=== PATIENT | female | born 1955 | race African-American/Black ===

== ENCOUNTER 2021-08-26 21:26 | Inpatient (IN) | payer OTHER, MEDICAID ==
[~2021-08-26] VITALS: Ht 177.8 cm; Wt 106.1 kg
--- NOTE | 2021-08-26 21:28 | PHYS DOC ---
General Adult HPI: HPI: Patient is a 66 year old female who arrives via EMS, from her private residence, with report of 2 days of cough, shortness of breath, generalized malaise and fatigue. EMS reports that she was saturating 60% on room air. Placed on 4 L per nasal cannula, and her oxygen saturation improved to 94%. The patient is not vaccinated against COVID-19, she is also not received an influenza vaccine. Her is also not vaccinated, and he has some similar symptoms. She denies abdominal pain, nausea, vomiting, diarrhea. She denies urinary symptoms. She denies chest pain. She denies hemoptysis. She denies any sputum production. She does not normally require supplemental oxygen. She quit smoking several years ago, but she denies any known history of pulmonary disease. She had a previous severe stroke with residual left hemiparesis, that is unchanged. She has residual speech difficulty dysarthria which is unchanged as well. She usually goes to [facility] for her care. She denies any recent hospitalizations in the last 90 days. She denies recent travel history. Review of Systems: Review of Systems: Constitutional: Denies fever. Reports chills and malaise. Eyes: Denies change in visual acuity. [] HENT: Denies nasal congestion or sore throat. [] Respiratory: Dry cough and dyspnea reported. Cardiovascular: Denies chest pain or edema. [] GI: Denies abdominal pain, nausea, vomiting, or diarrhea. : Denies urinary symptoms. Musculoskeletal: Denies back pain or joint pain. Reports myalgias. Integument: Denies rash. [] Neurologic: Denies headache. Chronic and unchanged left hemiparesis and chronic and unchanged dysarthria from previous CVA. Psychiatric: Denies depression or anxiety. [] Heart Score: C/O Chest Pain: No Risk Factors: Risk Factors: DM, Current or recent (<one month) smoker, HTN, HLP, family history of CAD, obesity. Risk Scores: Score 0 - 3: 2.5% MACE over next 6 weeks - Discharge Home Score 4 - 6: 20.3% MACE over next 6 weeks - Admit for Clinical Observation Score 7 - 10: 72.7% MACE over next 6 weeks - Early Invasive Strategies Physical Exam: PE: Constitutional: Well developed, well nourished, she is chronically ill- appearing. She is in mild to moderate respiratory distress HENT: Normocephalic, atraumatic, mucous membranes are moist Eyes: Clear are clear, anicteric, conjunctive are clear Neck: Normal range of motion, no tenderness, supple, no stridor. Trachea is midline Cardiovascular:Heart rate regular rhythm, +2 radial pulses, +2 dorsalis pedis pulses Lungs & Thorax: Diffuse rales and rhonchi in bilateral lung jaeger, diminished breath sounds more in the right lower lung jaeger. No wheezing. Mild tachypnea noted. No retractions. No stridor. Speaks in full sentences Abdomen: Abdomen is obese, soft, nondistended, normal bowel sounds, no tenderness to palpation Skin: Warm, dry, no erythema, no rash. [] Back: No tenderness, no CVA tenderness. [] Extremities: No tenderness, no cyanosis, no clubbing, ROM intact, no limb deformity. She has bilateral, symmetric 1+ bilateral lower extremity pitting edema. Neurologic: She is awake, alert, oriented to person, place and situation. Marked dysarthria, baseline for her. No facial asymmetry. Left hemiparesis noted, this is chronic and unchanged for her. Right upper and right lower extremities move symmetrically. She localizes to pain. Psychologic: Affect is flat. She is cooperative. EKG: EKG: EKG is interpreted at 2155 Rhythm is sinus Rate is 94 bpm Louise is left artifact No STEMI Radiology/Procedures: Radiology/Procedures: IMAGING REPORT Signed PATIENT: ROSI NICHOLSON JACCOUNT: [id number] : 1955 LOCATION: ER AGE: 66 SEX: F EXAM STATUS: REG ER ORD. PHYSICIAN: AMELIA PAULINO DO REASON: dyspnea, cough, hypoxia PROCEDURE: PORTABLE CHEST 1V Exam: Chest one view INDICATION: Dyspnea, cough TECHNIQUE: Frontal view of the chest Comparisons: None FINDINGS: The cardiomediastinal silhouette and pulmonary vessels are within normal limits. Patchy bilateral airspace disease. No pleural effusion IMPRESSION: Moderate bilateral airspace disease may be infectious or inflammatory in etiology versus pulmonary edema. Electronically signed by: Raul Lubin MD (08/26/2021 11:06 PM) [facility] DICTATED and SIGNED BY: RAUL LUBIN MD DATE: 08/26/21 [id number] Course & Med Decision Making: Course & Med Decision Making Pertinent Labs and Imaging studies reviewed. (See chart for details) The patient is placed on nasal cannula oxygen, I titrated up to 6-1/2 L, she ultimately required titration up to 8 L. She is saturating above 92%. She is resting much more comfortably, reports feeling much better. She is given IV dexamethasone. She is positive for COVID-19. I have discussed the findings and plan of care with the patient, I have recommended admission to the hospital. She is comfortable with this. She continues to deny any pain or discomfort. Her dyspnea is much improved. She is accepted for admission by Dr. Piepr. Kate Disclaimer: Kate Disclaimer: This electronic medical record was generated, in whole or in part, using a voice recognition dictation system. Departure Departure Impression: Primary Impression: Respiratory failure with hypoxia Additional Impressions: COVID-19 Pneumonia due to COVID-19 virus Disposition: ADMITTED INPATIENT Admitting Physician: CLOVER (Dr. Piper) Condition: GUARDED JEFFERSON,AMELIA Pace DO Aug 26, 2021 21:28
[2021-08-26] MEDS ORDERED: DEXAMETHASONE SOD PHOS 4 MG/ML VIAL IVP ONE (22:30)
[2021-08-26 22:56] LABS: BASO % 1 % (0-3); EOS % 0 % (0-3); HEMATOCRIT 36.1 % (36.0-47.0); HEMOGLOBIN 11.6 g/dL (12.0-15.5); LYMPH # 1.5 x10^3/uL (1.0-4.8); LYMPH % 31 % (24-48); MEAN CORPUSCULAR HEMOGLOBIN 27 pg (25-35); MEAN CORPUSCULAR HGB CONC 32 g/dL (31-37); MEAN CORPUSCULAR VOLUME 83 fL (79-100); MONO # 0.5 x10^3/uL (0.0-1.1); MONO % 9 % (0-9); NEUT # 2.9 x10^3/uL (1.8-7.7); NEUT % 59 % (31-73); PLATELET COUNT 193 x10^3/uL (140-400); RED BLOOD COUNT 4.36 x10^6/uL (3.50-5.40); RED CELL DISTRIBUTION WIDTH 14.9 % (11.5-14.5); WHITE BLOOD COUNT 4.9 x10^3/uL (4.0-11.0)
--- NOTE | 2021-08-26 23:00 | EKG ---
[facility] [address] [place] [address] Test Date: 2021-08-26 Test Time: 21:48:50 Pat Name: ROSI NICHOLSON Department: Room: Gender: F Insurance Executive: : 1955 Requested By: AMELIA PAULINO Order Number: [id number] Reading MD: Alex Bustamante Measurements Intervals [place] Rate: 94 P: 42 CT: 156 QRS: -13 QRSD: 92 T: 91 QT: 368 QTc: 460 Interpretive Statements SINUS RHYTHM LEFTWARD AXIS T ABNORMALITY IN HIGH LATERAL LEADS Electronically Signed On 08-28-2021 15:03:42 [employer] by Alex Bustamante
--- NOTE | 2021-08-26 23:09 | RAD ---
Exam: Chest one view INDICATION: Dyspnea, cough TECHNIQUE: Frontal view of the chest Comparisons: None FINDINGS: The cardiomediastinal silhouette and pulmonary vessels are within normal limits. Patchy bilateral airspace disease. No pleural effusion IMPRESSION: Moderate bilateral airspace disease may be infectious or inflammatory in etiology versus pulmonary ed angie. Electronically signed by: Raul Cohn MD (08/26/2021 11:06 PM) ROSAS
[2021-08-26 23:15] LABS: CALCIUM 8.3 mg/dL (8.5-10.1); CREATININE 1.7 mg/dL (0.6-1.0); GFR 36.6
[2021-08-26 23:21] LABS: ALBUMIN 2.6 g/dL (3.4-5.0); ALBUMIN/GLOBULIN RATIO 0.5 (1.0-1.7); TOTAL BILIRUBIN 0.7 mg/dL (0.2-1.0); TOTAL PROTEIN 7.7 g/dL (6.4-8.2)
[2021-08-26 23:23] LABS: INFLUENZA A PATIENT NEGATIVE (NEGATIVE); INFLUENZA B PATIENT NEGATIVE (NEGATIVE)
[2021-08-27] MEDS ORDERED: IV NORMAL SALINE 1000ML BAG 1,000 ML IV ONE (00:30)
[2021-08-27 02:23] LABS: BASE EXCESS ABG 2 mmol/L (-3-3); HCO3 ABG 27 mmol/L (21-28); PCO2 ABG 44 mmHg (35-46); PO2 ABG 57 mmHg (65-108); SAT O2 ABG 88 % (92-99)
[2021-08-27 02:25] LABS: FIO2 ABG 46 (6.5L NC)
--- NOTE | 2021-08-27 09:06 | PDOC1 ---
History and Physical Date of Service: DOS: DATE: 08/27/21 TIME: 09:01 Chief Complaint: Chief Complain: Shortness of breath History of Present Illness: HPI: History obtained from discussion with the ED physician and chart review: 66-year-old female with a past medical history of stroke with left-sided hemiparesis, tobacco misuse and possible COPD who presents events with 2 days of cough, shortness of breath, generalized weakness and fatigue. Patient called EMS for the symptoms and she was saturating at 60% on room air and was placed on 4 L nasal cannula and improved to 94%. Patient is not vaccinated for influenza or Covid. also has similar symptoms. Denies fevers, abdominal pain, chest pain, nausea vomiting or diarrhea or dysuria or hematuria. Patient does not wear any oxygen at home. She quit smoking several years ago, but she denies any known history of pulmonary disease. She had a previous severe stroke with residual left hemiparesis, that is unchanged. She has residual speech difficulty dysarthria which is unchanged as well. She usually goes to [facility] for her care. EKG: Rhythm is sinus Rate is 94 bpm [place] is left artifact No STEMI Past Medical/Surgical History: PMH/PSH: History of stroke with left-sided hemiparesis Allergies: Allergies: Coded Allergies: No Known Drug Allergies (Unverified , 08/27/21) Family History: Family History: Reviewed with no relevant findings in the chart Social History: Social History: Former smoker Current Medications: Current Medications Current Medications Dexamethasone Sodium Phosphate (Decadron) 6 mg 1X ONCE IVP Last administered on 08/26/21at 23:17; Start 08/26/21 at 22:30; Stop 08/26/21 at 22:31; Status DC Ondansetron HCl (Zofran) 4 mg PRN Q8HRS PRN IVP NAUSEA/VOMITING 1ST CHOICE; Start 08/27/21 at 00:00; Stop 08/27/21 at 23:59 Sodium Chloride 1,000 ml @ 75 mls/hr 1X ONCE IV Last administered on 08/27/21at 02:36; Start 08/27/21 at 00:30; Stop 08/27/21 at 13:49 Acetaminophen (Tylenol) 650 mg PRN Q4HRS PRN PO MILD PAIN / TEMP > 100.3'F; Start 08/27/21 at 00:00 ROS: Review of Systems Review of System REVIEW OF SYSTEMS: GENERAL: Denies weakness SKIN: No bruising, hair changes or rashes. EYES: No blurred, double or loss of vision. NOSE AND THROAT: No history of nosebleeds, hoarseness or sore throat. HEART: No history of palpitations, chest pain or shortness of breath on exertion. LUNGS: Positive shortness of breath GASTROINTESTINAL: Denies changes in appetite, nausea, vomiting, diarrhea or constipation. GENITOURINARY: No history of frequency, urgency, hesitancy or nocturia. NEUROLOGIC: Denies history of numbness, tingling, or tremor. PSYCHIATRIC: No history of panic, anxiety or depression. ENDOCRINE: No history of heat or cold intolerance, polyuria or polydipsia. EXTREMITIES: Denies joint pain, pain on walking or stiffness. Physical Exam: Vital Signs: Vital Signs Date Time Temp Pulse Resp B/P (MAP) Pulse Ox O2 Delivery O2 Flow Rate FiO2 08/27/21 07:26 97.7 84 28 157/86 (109) 92 Nasal Cannula 9.0 97.7 Physcial Exam: General: Well developed, well nourished, no acute distress, well appearing HEENT: Pupils equally round and reactive to light, EOMI, no discharge, normal conjunctiva Neck: Supple, no nuchal rigidity, no JVD, trachea midline, no tenderness Cardiac: RRR, no murmurs, no gallops, no rubs Chest/Lungs: Diffuse rales and rhonchi in bilateral lung jaeger, diminished breath sounds more in the right lower lung jaeger. No wheezing. Mild tachypnea noted. No retractions. No stridor. Speaks in full sentences Abdomen: soft, non-distended, no guarding, no peritoneal signs, non-tender Back: No tenderness Extremities: no edema, pulses intact, non-tender,capillary refill <3 sec bilateral upper and lower extremities, Neuro: Alert and oriented x 4, no focal deficits, normal speech Labs: Labs: Laboratory Tests Test 08/26/21 22:03 08/26/21 22:43 08/27/21 02:20 White Blood Count 4.9 x10^3/uL (4.0-11.0) Red Blood Count 4.36 x10^6/uL (3.50-5.40) Hemoglobin 11.6 g/dL (12.0-15.5) Hematocrit 36.1 % (36.0-47.0) Mean Corpuscular Volume 83 fL (79-100) Mean Corpuscular Hemoglobin 27 pg (25-35) Mean Corpuscular Hemoglobin Concent 32 g/dL (31-37) Red Cell Distribution Width 14.9 % (11.5-14.5) Platelet Count 193 x10^3/uL (140-400) Neutrophils (%) (Auto) 59 % (31-73) Lymphocytes (%) (Auto) 31 % (24-48) Monocytes (%) (Auto) 9 % (0-9) Eosinophils (%) (Auto) 0 % (0-3) Basophils (%) (Auto) 1 % (0-3) Neutrophils # (Auto) 2.9 x10^3/uL (1.8-7.7) Lymphocytes # (Auto) 1.5 x10^3/uL (1.0-4.8) Monocytes # (Auto) 0.5 x10^3/uL (0.0-1.1) Eosinophils # (Auto) 0.0 x10^3/uL (0.0-0.7) Basophils # (Auto) 0.0 x10^3/uL (0.0-0.2) Sodium Level 138 mmol/L (136-145) Potassium Level 4.0 mmol/L (3.5-5.1) Chloride Level 106 mmol/L (98-107) Carbon Dioxide Level 29 mmol/L (21-32) Anion Gap 3 (6-14) Blood Urea Nitrogen 18 mg/dL (7-20) Creatinine 1.7 mg/dL (0.6-1.0) Estimated GFR (Cockcroft-Gault) 36.6 BUN/Creatinine Ratio 11 (6-20) Glucose Level 128 mg/dL (70-99) Lactic Acid Level 1.3 mmol/L (0.4-2.0) Calcium Level 8.3 mg/dL (8.5-10.1) Magnesium Level 2.0 mg/dL (1.8-2.4) Total Bilirubin 0.7 mg/dL (0.2-1.0) Aspartate Amino Transf (AST/SGOT) 46 U/L (15-37) Alanine Aminotransferase (ALT/SGPT) 30 U/L (14-59) Alkaline Phosphatase 103 U/L (46-116) Creatine Kinase 685 U/L (26-192) Troponin I High Sensitivity 139 ng/L (4-50) SY-Gza-Y-Type Natriuretic Peptide 766 pg/mL (0-124) Total Protein 7.7 g/dL (6.4-8.2) Albumin 2.6 g/dL (3.4-5.0) Albumin/Globulin Ratio 0.5 (1.0-1.7) Influenza Type A Antigen Negative (NEGATIVE) Influenza Type B Antigen Negative (NEGATIVE) SARS-CoV-2 Antigen (Rapid) Positive (NEGATIVE) O2 Saturation 88 % (92-99) Arterial Blood pH 7.40 (7.35-7.45) Arterial Blood pCO2 at Patient Temp 44 mmHg (35-46) Arterial Blood pO2 at Patient Temp 57 mmHg (65-108) Arterial Blood HCO3 27 mmol/L (21-28) Arterial Blood Base Excess 2 mmol/L (-3-3) FiO2 46 (6.5l nc) Laboratory Tests Test 08/26/21 22:03 08/26/21 22:43 08/27/21 02:20 White Blood Count 4.9 x10^3/uL (4.0-11.0) Red Blood Count 4.36 x10^6/uL (3.50-5.40) Hemoglobin 11.6 g/dL (12.0-15.5) Hematocrit 36.1 % (36.0-47.0) Mean Corpuscular Volume 83 fL (79-100) Mean Corpuscular Hemoglobin 27 pg (25-35) Mean Corpuscular Hemoglobin Concent 32 g/dL (31-37) Red Cell Distribution Width 14.9 % (11.5-14.5) Platelet Count 193 x10^3/uL (140-400) Neutrophils (%) (Auto) 59 % (31-73) Lymphocytes (%) (Auto) 31 % (24-48) Monocytes (%) (Auto) 9 % (0-9) Eosinophils (%) (Auto) 0 % (0-3) Basophils (%) (Auto) 1 % (0-3) Neutrophils # (Auto) 2.9 x10^3/uL (1.8-7.7) Lymphocytes # (Auto) 1.5 x10^3/uL (1.0-4.8) Monocytes # (Auto) 0.5 x10^3/uL (0.0-1.1) Eosinophils # (Auto) 0.0 x10^3/uL (0.0-0.7) Basophils # (Auto) 0.0 x10^3/uL (0.0-0.2) Sodium Level 138 mmol/L (136-145) Potassium Level 4.0 mmol/L (3.5-5.1) Chloride Level 106 mmol/L (98-107) Carbon Dioxide Level 29 mmol/L (21-32) Anion Gap 3 (6-14) Blood Urea Nitrogen 18 mg/dL (7-20) Creatinine 1.7 mg/dL (0.6-1.0) Estimated GFR (Cockcroft-Gault) 36.6 BUN/Creatinine Ratio 11 (6-20) Glucose Level 128 mg/dL (70-99) Lactic Acid Level 1.3 mmol/L (0.4-2.0) Calcium Level 8.3 mg/dL (8.5-10.1) Magnesium Level 2.0 mg/dL (1.8-2.4) Total Bilirubin 0.7 mg/dL (0.2-1.0) Aspartate Amino Transf (AST/SGOT) 46 U/L (15-37) Alanine Aminotransferase (ALT/SGPT) 30 U/L (14-59) Alkaline Phosphatase 103 U/L (46-116) Creatine Kinase 685 U/L (26-192) Troponin I High Sensitivity 139 ng/L (4-50) NE-Dtq-W-Type Natriuretic Peptide 766 pg/mL (0-124) Total Protein 7.7 g/dL (6.4-8.2) Albumin 2.6 g/dL (3.4-5.0) Albumin/Globulin Ratio 0.5 (1.0-1.7) Influenza Type A Antigen Negative (NEGATIVE) Influenza Type B Antigen Negative (NEGATIVE) SARS-CoV-2 Antigen (Rapid) Positive (NEGATIVE) O2 Saturation 88 % (92-99) Arterial Blood pH 7.40 (7.35-7.45) Arterial Blood pCO2 at Patient Temp 44 mmHg (35-46) Arterial Blood pO2 at Patient Temp 57 mmHg (65-108) Arterial Blood HCO3 27 mmol/L (21-28) Arterial Blood Base Excess 2 mmol/L (-3-3) FiO2 46 (6.5l nc) Images: Images PROCEDURE: PORTABLE CHEST 1V Exam: Chest one view INDICATION: Dyspnea, cough TECHNIQUE: Frontal view of the chest Comparisons: None FINDINGS: The cardiomediastinal silhouette and pulmonary vessels are within normal limits. Patchy bilateral airspace disease. No pleural effusion IMPRESSION: Moderate bilateral airspace disease may be infectious or inflammatory in etiology versus pulmonary edema. Assessment/Plan Assessment/Plan Acute hypoxic respiratory failure secondary to COVID-19 pneumonia VIDAL due to vasomotor nephropathy Mildly elevated troponin level suggestive of type II demand ischemia Morbid obesity History of stroke Admit to hospitalist service for further management Admit to medicine for further management Pulmonology consult Continue IV thiamine and vitamin C IV dexamethasone daily IV Remdesivir if patient requires O2 supplementation beyond there baseline Pending CRP, D-dimer labs Titrate O2 supplementation to maintain O2 saturation greater than 92% Empiric IV antibiotics if patient has clinical presentation for bacterial pneumonia Lovenox for DVT prophylaxis Protonix while on steroids GI prophylaxis Cardiac diet DNR code Discussed with RN and SW Disposition inpatient management as above Surrogate decision maker is the In addition to my E/M visit, advance care planning done with A total time of 20 minutes was spent from 8:00 to 820 face to face in discussion regarding the patient's goals of care, CODE STATUS. Patient wishes to be DNR Justifications for Admission Other Justification MONICA MINOR MD Aug 27, 2021 09:06
[2021-08-27] MEDS ORDERED: ATOR40TA59 PO (09:11)
[2021-08-27] MEDS ORDERED: GABA300C18 PO (09:11)
[2021-08-27] MEDS ORDERED: TIZA-75 PO (09:11)
[2021-08-27] MEDS ORDERED: TRIA80OI TP (09:11)
[2021-08-27] MEDS ORDERED: NAPR-585 PO (09:11)
[2021-08-27] MEDS ORDERED: OXYB-36 PO (09:11)
[2021-08-27] MEDS ORDERED: ERGO500089 PO (09:11)
[2021-08-27] MEDS ORDERED: DOCUSATE SODIUM 100 MG CAPSULE. PO PRN (09:15)
[2021-08-27] MEDS ORDERED: diphenhydrAMINE HCL 25 MG CAPSULE PO PRN ×2 (09:15)
[2021-08-27] MEDS ORDERED: PROCHLORPERAZINE 10 MG/2 ML VIAL. IV PRN (09:15)
[2021-08-27] MEDS ORDERED: SENNOSIDES 8.6 MG TABLET PO PRN (09:15)
[2021-08-27] MEDS ORDERED: ONDANSETRON PF 4 MG/2 ML VIAL. IVP PRN ×2 (09:15)
[2021-08-27] MEDS ORDERED: ACETAMINOPHEN 325 MG TABLET. PO PRN ×2 (09:15)
[2021-08-27] MEDS ORDERED: DEXTROSE 50% 25 GM / 50ML DISP.SYRIN. IV PRN (09:15)
[2021-08-27] MEDS ORDERED: ZOLPIDEM 5 MG TABLET. PO PRN (09:15)
--- NOTE | 2021-08-27 10:41 | CONS ---
DATE OF CONSULTATION: 08/27/2021 PULMONARY CONSULTATION ATTENDING PHYSICIAN: Akua Piper DO REASON FOR CONSULTATION: Respiratory failure, COVID-19 pneumonia. HISTORY OF PRESENT ILLNESS: The patient is 66 years old who has past medical history of stroke with residual left-sided hemiparesis. The patient also has a history of tobaccoism, but quit several years ago. She was brought into the hospital with increasing cough, dyspnea, malaise and fatigue. She was noted to be hypoxic. She was placed on nasal cannula at 4 liters. The patient is COVID positive. She is not vaccinated for COVID. Her chest x-ray revealed diffuse bilateral infiltrates. No significant pleural effusion seen. I saw the patient in the Emergency Room. She is able to answer questions. She does not want to be intubated. The patient received dexamethasone. She is also on Lovenox for DVT prophylaxis. Consultation requested for further evaluation and management. She denies any nausea, vomiting. No diarrhea, no dysuria. She has some dysarthria. She has residual left-sided hemiparesis. PAST MEDICAL HISTORY: History of stroke with left-sided hemiparesis, history of tobaccoism, possible underlying COPD. ALLERGIES: None. SURGERIES: No recent surgeries. MEDICATIONS: Reviewed as given in the ER. REVIEW OF SYSTEMS: A 10-point system obtained. Pertinent positives discussed in my present illness, otherwise noncontributory. All systems that were negative were reviewed as well. SOCIAL HISTORY: Quit tobacco 2 years ago. FAMILY HISTORY: Noncontributory to lungs. PHYSICAL EXAMINATION: VITAL SIGNS: Reviewed. Afebrile, pulse ox 92% on 9 liters. GENERAL: Visual exam done due to COVID-19 pandemic. No paradoxical breathing. No obvious respiratory distress. She is obese. No skin rash. LABORATORY DATA: Reviewed. White cell count 4.9, hemoglobin 11.6 and platelets are 193. BUN 18, creatinine 1.7. CK 685. Troponin 139. ABGs with a pH of 7.40, pCO2 of 44 and a pO2 of 57 on 6.5 liters. IMPRESSION: 1. Acute hypoxic respiratory failure secondary to COVID-19 pneumonia/acute lung injury and early ARDS. 2. Abnormal chest x-ray consistent with viral pneumonia. 3. 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 4. History of tobaccoism. Quit 2 years ago. 5. Acute kidney injury versus chronic kidney disease. 6. Increased CPK and troponin level. 7. History of stroke with left-sided hemiparesis RECOMMENDATIONS: 1. Discussed with ER nurse and the patient. She wants to be a partial code. She does not want to be intubated. 2. We will continue present oxygen. We will change to high flow cannula. 3. Continue dexamethasone for a total of 10 days. 4. Lovenox for DVT prophylaxis. 5. PPI. 6. Discussed with ER physician. Chart reviewed, imaging studies reviewed. The patient will be a DNR. 7. Tocilizumab is not available in the hospital. d/w RN/cct 35 min RADHA/POLA DR: RADHA/phillip TID: [id number] MTDD
[2021-08-27] MEDS: DEXAMETHASONE SOD PHOS 4 MG/ML VIAL IVP SCH (10:52)
[2021-08-27] MEDS: PANTOPRAZOLE 40 MG TABLET.DR. PO SCH (10:57)
[2021-08-27] MEDS: ZINC SULFATE 220 MG CAPSULE. PO SCH (10:59)
[2021-08-27] MEDS: ENOXAPARIN 40 MG/0.4 ML SYRINGE. SQ SCH (10:59)
[2021-08-27] MEDS: ASCORBIC ACID 1,000 MG TABLET PO SCH ×3 (11:01→21:36)
[2021-08-27] MEDS: THIAMINE 100 MG TABLET. PO SCH (11:05)
[2021-08-27 14:43] VITALS: BP 191/92
[2021-08-27] MEDS: NYSTATIN TOPICAL POWDER 15GM BOTTLE. TP SCH (17:10)
[2021-08-27] MEDS: hydrALAZINE 20 MG/ML VIAL. IVP PRN ×2 (17:10→20:50)
[2021-08-27 19:59] VITALS: BP 182/79
[2021-08-27 22:00] VITALS: BP 174/76
[2021-08-28 03:18] VITALS: BP 157/72
[2021-08-28 06:06] LABS: BASO % 0 % (0-3); EOS % 0 % (0-3); HEMATOCRIT 34.6 % (36.0-47.0); HEMOGLOBIN 11.2 g/dL (12.0-15.5); LYMPH # 0.9 x10^3/uL (1.0-4.8); LYMPH % 11 % (24-48); MEAN CORPUSCULAR HEMOGLOBIN 27 pg (25-35); MEAN CORPUSCULAR HGB CONC 32 g/dL (31-37); MEAN CORPUSCULAR VOLUME 82 fL (79-100); MONO # 0.7 x10^3/uL (0.0-1.1); MONO % 9 % (0-9); NEUT # 6.3 x10^3/uL (1.8-7.7); NEUT % 80 % (31-73); PLATELET COUNT 215 x10^3/uL (140-400); RED BLOOD COUNT 4.21 x10^6/uL (3.50-5.40); RED CELL DISTRIBUTION WIDTH 14.8 % (11.5-14.5)
[2021-08-28 06:43] LABS: CALCIUM 7.8 mg/dL (8.5-10.1); CREATININE 1.2 mg/dL (0.6-1.0); GFR 54.7; MAGNESIUM 2.2 mg/dL (1.8-2.4); PHOSPHORUS 2.3 mg/dL (2.6-4.7); POTASSIUM 4.3 mmol/L (3.5-5.1)
[2021-08-28 07:00] VITALS: BP 137/88
[2021-08-28] MEDS: PANTOPRAZOLE 40 MG TABLET.DR. PO SCH (08:18)
[2021-08-28] MEDS: ZINC SULFATE 220 MG CAPSULE. PO SCH (08:19)
[2021-08-28] MEDS: THIAMINE 100 MG TABLET. PO SCH (08:19)
[2021-08-28] MEDS: DEXAMETHASONE SOD PHOS 4 MG/ML VIAL IVP SCH (08:19)
[2021-08-28] MEDS: ASCORBIC ACID 1,000 MG TABLET PO SCH ×3 (08:20→20:52)
[2021-08-28] MEDS: NYSTATIN TOPICAL POWDER 15GM BOTTLE. TP SCH ×2 (08:20→20:58)
[2021-08-28] MEDS: ENOXAPARIN 40 MG/0.4 ML SYRINGE. SQ SCH ×2 (08:20→20:55)
[2021-08-28] MEDS ORDERED: SODIUM PHOSPHATE 20 MMOL in IV NORMAL SALINE 250ML 250 ML IV ONE (09:00)
--- NOTE | 2021-08-28 10:44 | NUR ---
SS following for discharge planning. SS reviewed pt chart and discussed with pt RN. Pt is from home with spouse and is currently on 15 liters non-rebreather. COVID19 positive. Pt on IV Decadron. Pulmonology consulted. SS will continue to follow for discharge planning.
[2021-08-28 11:00] VITALS: BP 189/84
--- NOTE | 2021-08-28 11:13 | PDOC ---
PULMONARY PROGRESS NOTES DATE: 08/28/21 TIME: 11:11 Subjective Patient on a nonrebreather mask. Appears comfortable. Vitals Vital Signs Date Time Temp Pulse Resp B/P (MAP) Pulse Ox O2 Delivery O2 Flow Rate FiO2 08/28/21 08:00 Non-Rebreather 15.0 08/28/21 07:00 98.3 95 22 137/88 (104) 94 98.3 Comments Visual exam done due to COVID-19 bandemia. No paradoxical breathing. No respiratory distress. Trace pitting edema Labs Laboratory Tests Test 08/26/21 22:03 08/26/21 22:43 08/27/21 02:20 08/27/21 09:25 White Blood Count 4.9 x10^3/uL (4.0-11.0) Red Blood Count 4.36 x10^6/uL (3.50-5.40) Hemoglobin 11.6 g/dL (12.0-15.5) Hematocrit 36.1 % (36.0-47.0) Mean Corpuscular Volume 83 fL (79-100) Mean Corpuscular Hemoglobin 27 pg (25-35) Mean Corpuscular Hemoglobin Concent 32 g/dL (31-37) Red Cell Distribution Width 14.9 % (11.5-14.5) Platelet Count 193 x10^3/uL (140-400) Neutrophils (%) (Auto) 59 % (31-73) Lymphocytes (%) (Auto) 31 % (24-48) Monocytes (%) (Auto) 9 % (0-9) Eosinophils (%) (Auto) 0 % (0-3) Basophils (%) (Auto) 1 % (0-3) Neutrophils # (Auto) 2.9 x10^3/uL (1.8-7.7) Lymphocytes # (Auto) 1.5 x10^3/uL (1.0-4.8) Monocytes # (Auto) 0.5 x10^3/uL (0.0-1.1) Eosinophils # (Auto) 0.0 x10^3/uL (0.0-0.7) Basophils # (Auto) 0.0 x10^3/uL (0.0-0.2) Sodium Level 138 mmol/L (136-145) Potassium Level 4.0 mmol/L (3.5-5.1) Chloride Level 106 mmol/L (98-107) Carbon Dioxide Level 29 mmol/L (21-32) Anion Gap 3 (6-14) Blood Urea Nitrogen 18 mg/dL (7-20) Creatinine 1.7 mg/dL (0.6-1.0) Estimated GFR (Cockcroft-Gault) 36.6 BUN/Creatinine Ratio 11 (6-20) Glucose Level 128 mg/dL (70-99) Lactic Acid Level 1.3 mmol/L (0.4-2.0) Calcium Level 8.3 mg/dL (8.5-10.1) Magnesium Level 2.0 mg/dL (1.8-2.4) Total Bilirubin 0.7 mg/dL (0.2-1.0) Aspartate Amino Transf (AST/SGOT) 46 U/L (15-37) Alanine Aminotransferase (ALT/SGPT) 30 U/L (14-59) Alkaline Phosphatase 103 U/L (46-116) Creatine Kinase 685 U/L (26-192) Troponin I High Sensitivity 139 ng/L (4-50) ZA-Xtq-F-Type Natriuretic Peptide 766 pg/mL (0-124) Total Protein 7.7 g/dL (6.4-8.2) Albumin 2.6 g/dL (3.4-5.0) Albumin/Globulin Ratio 0.5 (1.0-1.7) Influenza Type A Antigen Negative (NEGATIVE) Influenza Type B Antigen Negative (NEGATIVE) SARS-CoV-2 Antigen (Rapid) Positive (NEGATIVE) O2 Saturation 88 % (92-99) Arterial Blood pH 7.40 (7.35-7.45) Arterial Blood pCO2 at Patient Temp 44 mmHg (35-46) Arterial Blood pO2 at Patient Temp 57 mmHg (65-108) Arterial Blood HCO3 27 mmol/L (21-28) Arterial Blood Base Excess 2 mmol/L (-3-3) FiO2 46 (6.5l nc) D-Dimer (Clari) 1.77 ug/mlFEU (0.00-0.50) C-Reactive Protein, Quantitative 160.9 mg/L (0-3.3) Procalcitonin 0.10 ng/mL (0.00-0.10) Test 08/28/21 05:20 White Blood Count 8.0 x10^3/uL (4.0-11.0) Red Blood Count 4.21 x10^6/uL (3.50-5.40) Hemoglobin 11.2 g/dL (12.0-15.5) Hematocrit 34.6 % (36.0-47.0) Mean Corpuscular Volume 82 fL (79-100) Mean Corpuscular Hemoglobin 27 pg (25-35) Mean Corpuscular Hemoglobin Concent 32 g/dL (31-37) Red Cell Distribution Width 14.8 % (11.5-14.5) Platelet Count 215 x10^3/uL (140-400) Neutrophils (%) (Auto) 80 % (31-73) Lymphocytes (%) (Auto) 11 % (24-48) Monocytes (%) (Auto) 9 % (0-9) Eosinophils (%) (Auto) 0 % (0-3) Basophils (%) (Auto) 0 % (0-3) Neutrophils # (Auto) 6.3 x10^3/uL (1.8-7.7) Lymphocytes # (Auto) 0.9 x10^3/uL (1.0-4.8) Monocytes # (Auto) 0.7 x10^3/uL (0.0-1.1) Eosinophils # (Auto) 0.0 x10^3/uL (0.0-0.7) Basophils # (Auto) 0.0 x10^3/uL (0.0-0.2) Sodium Level 141 mmol/L (136-145) Potassium Level 4.3 mmol/L (3.5-5.1) Chloride Level 107 mmol/L (98-107) Carbon Dioxide Level 27 mmol/L (21-32) Anion Gap 7 (6-14) Blood Urea Nitrogen 20 mg/dL (7-20) Creatinine 1.2 mg/dL (0.6-1.0) Estimated GFR (Cockcroft-Gault) 54.7 Glucose Level 165 mg/dL (70-99) Calcium Level 7.8 mg/dL (8.5-10.1) Phosphorus Level 2.3 mg/dL (2.6-4.7) Magnesium Level 2.2 mg/dL (1.8-2.4) Laboratory Tests Test 08/28/21 05:20 White Blood Count 8.0 x10^3/uL (4.0-11.0) Red Blood Count 4.21 x10^6/uL (3.50-5.40) Hemoglobin 11.2 g/dL (12.0-15.5) Hematocrit 34.6 % (36.0-47.0) Mean Corpuscular Volume 82 fL (79-100) Mean Corpuscular Hemoglobin 27 pg (25-35) Mean Corpuscular Hemoglobin Concent 32 g/dL (31-37) Red Cell Distribution Width 14.8 % (11.5-14.5) Platelet Count 215 x10^3/uL (140-400) Neutrophils (%) (Auto) 80 % (31-73) Lymphocytes (%) (Auto) 11 % (24-48) Monocytes (%) (Auto) 9 % (0-9) Eosinophils (%) (Auto) 0 % (0-3) Basophils (%) (Auto) 0 % (0-3) Neutrophils # (Auto) 6.3 x10^3/uL (1.8-7.7) Lymphocytes # (Auto) 0.9 x10^3/uL (1.0-4.8) Monocytes # (Auto) 0.7 x10^3/uL (0.0-1.1) Eosinophils # (Auto) 0.0 x10^3/uL (0.0-0.7) Basophils # (Auto) 0.0 x10^3/uL (0.0-0.2) Sodium Level 141 mmol/L (136-145) Potassium Level 4.3 mmol/L (3.5-5.1) Chloride Level 107 mmol/L (98-107) Carbon Dioxide Level 27 mmol/L (21-32) Anion Gap 7 (6-14) Blood Urea Nitrogen 20 mg/dL (7-20) Creatinine 1.2 mg/dL (0.6-1.0) Estimated GFR (Cockcroft-Gault) 54.7 Glucose Level 165 mg/dL (70-99) Calcium Level 7.8 mg/dL (8.5-10.1) Phosphorus Level 2.3 mg/dL (2.6-4.7) Magnesium Level 2.2 mg/dL (1.8-2.4) Medications Active Scripts Medications Dose Route/Sig Max Daily Dose Days Date Category Vitamin D2 (Ergocalciferol (Vitamin D2)) 1,250 Mcg Capsule 1,250 Mcg PO WEEKLY 08/27/21 Reported Naproxen Cr (Naproxen Sodium) 500 Mg Tbmp.24hr 1 Tab PO BID PRN 30 08/27/21 Reported Gabapentin (Gabapentin) 300 Mg Capsule 300 Mg PO TID 08/27/21 Reported Triamcinolone Acetonide 80 Gm Oint...g. 1 Betty TP BID 08/27/21 Reported Atorvastatin Calcium 40 Mg Tablet 1 Tab PO DAILY 08/27/21 Reported Tizanidine Hcl 4 Mg Tablet 1 Tab PO BID 08/27/21 Reported Oxybutynin Chloride Er (Oxybutynin Chloride) 5 Mg Tab.er.24 1 Tab PO DAILY 08/27/21 Reported Impression . 1. Acute hypoxic respiratory failure secondary to COVID-19 pneumonia/acute lung injury and early ARDS. 2. Abnormal chest x-ray consistent with viral pneumonia. 3. 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 4. History of tobaccoism. Quit 2 years ago. 5. Acute kidney injury versus chronic kidney disease. 6. Increased CPK and troponin level. Plan . 1. Continue with present nonrebreather mask. 2. Monitor respiratory status closely. May add Vapotherm. 3. Continue dexamethasone for a total of 10 days. 4. Lovenox for DVT prophylaxis. 5. PPI. 6. Per patient request, patient not to be intubated. 7. Tocilizumab is not available in the hospital. Patient too late for remdesivir. ADIEL CHAIREZ MD Aug 28, 2021 11:13
[2021-08-28] MEDS: hydrALAZINE 20 MG/ML VIAL. IVP PRN (12:08)
--- NOTE | 2021-08-28 14:03 | PDOC ---
[employer] PROGRESS NOTE Date of Service DOS: DATE: 08/28/21 TIME: 14:02 Chief Complaint Chief Complaint Assessment/Plan Acute hypoxic respiratory failure secondary to COVID-19 pneumonia VIDAL due to vasomotor nephropathy Mildly elevated troponin level suggestive of type II demand ischemia Morbid obesity History of stroke Admit to hospitalist service for further management Admit to medicine for further management Pulmonology consult Continue IV thiamine and vitamin C IV dexamethasone daily IV Remdesivir if patient requires O2 supplementation beyond there baseline Pending CRP, D-dimer labs Titrate O2 supplementation to maintain O2 saturation greater than 92% Empiric IV antibiotics if patient has clinical presentation for bacterial pneumonia Lovenox for DVT prophylaxis Protonix while on steroids GI prophylaxis Cardiac diet DNR code Discussed with RN and SW Disposition inpatient management as above Surrogate decision maker is the History of Present Illness History of Present Illness 66-year-old female with a past medical history of stroke with left-sided hemiparesis, tobacco misuse and possible COPD who presents events with 2 days of cough, shortness of breath, generalized weakness and fatigue. Patient called EMS for the symptoms and she was saturating at 60% on room air and was placed on 4 L nasal cannula and improved to 94%. Patient is not vaccinated for influenza or Covid. also has similar symptoms. Denies fevers, abdominal pain, chest pain, nausea vomiting or diarrhea or dysuria or hematuria. Patient does not wear any oxygen at home. She quit smoking several years ago, but she denies any known history of pulmonary disease. She had a previous severe stroke with residual left hemiparesis, that is unchanged. She has residual speech difficulty dysarthria which is unchanged as well. She usually goes to [facility] for her care. 08/28/2021 No acute events overnight. Patient seen and examined bedside. Patient appears comfortable on nonrebreathing mask and saturating 94% on 15 L. Continue with IV steroids and monitor closely. Appreciate pulmonology recommendations to continue with current care. And the patient request not to be intubated still. Patient's chart, labs, images were reviewed and discussed with RN Vitals/I&O Vitals/I&O: Vital Signs Date Time Temp Pulse Resp B/P (MAP) Pulse Ox O2 Delivery O2 Flow Rate FiO2 08/28/21 12:08 86 189/84 08/28/21 11:00 97.3 20 94 NonRebreather Mask 15.0 97.3 I & O 08/27/21 08/27/21 08/28/21 15:00 23:00 07:00 Intake Total 1000 ml 0 ml Output Total 400 ml Balance 1000 ml -400 ml Physical Exam General: Alert, Oriented X3, Cooperative Heart: Regular rate Lungs: Clear Abdomen: Normal bowel sounds Extremities: No clubbing Skin: No rashes Labs Labs: Laboratory Tests Test 08/28/21 05:20 White Blood Count 8.0 x10^3/uL (4.0-11.0) Red Blood Count 4.21 x10^6/uL (3.50-5.40) Hemoglobin 11.2 g/dL (12.0-15.5) Hematocrit 34.6 % (36.0-47.0) Mean Corpuscular Volume 82 fL (79-100) Mean Corpuscular Hemoglobin 27 pg (25-35) Mean Corpuscular Hemoglobin Concent 32 g/dL (31-37) Red Cell Distribution Width 14.8 % (11.5-14.5) Platelet Count 215 x10^3/uL (140-400) Neutrophils (%) (Auto) 80 % (31-73) Lymphocytes (%) (Auto) 11 % (24-48) Monocytes (%) (Auto) 9 % (0-9) Eosinophils (%) (Auto) 0 % (0-3) Basophils (%) (Auto) 0 % (0-3) Neutrophils # (Auto) 6.3 x10^3/uL (1.8-7.7) Lymphocytes # (Auto) 0.9 x10^3/uL (1.0-4.8) Monocytes # (Auto) 0.7 x10^3/uL (0.0-1.1) Eosinophils # (Auto) 0.0 x10^3/uL (0.0-0.7) Basophils # (Auto) 0.0 x10^3/uL (0.0-0.2) Sodium Level 141 mmol/L (136-145) Potassium Level 4.3 mmol/L (3.5-5.1) Chloride Level 107 mmol/L (98-107) Carbon Dioxide Level 27 mmol/L (21-32) Anion Gap 7 (6-14) Blood Urea Nitrogen 20 mg/dL (7-20) Creatinine 1.2 mg/dL (0.6-1.0) Estimated GFR (Cockcroft-Gault) 54.7 Glucose Level 165 mg/dL (70-99) Calcium Level 7.8 mg/dL (8.5-10.1) Phosphorus Level 2.3 mg/dL (2.6-4.7) Magnesium Level 2.2 mg/dL (1.8-2.4) Assessment and Plan Assessmemt and Plan Problems Medical Problems: (1) COVID-19 Status: Acute (2) Pneumonia due to COVID-19 virus Status: Acute (3) Respiratory failure with hypoxia Status: Acute Comment Review of Relevant I have reviewed the following items allyn (where applicable) has been applied. Medications: Current Medications Medications (Trade) Dose Ordered Sig/Alex Route PRN Reason Start Time Stop Time Status Last Admin Dose Admin Hydralazine HCl (Apresoline Inj) 10 mg PRN Q4HRS PRN IVP ELEVATED BP, SEE COMMENTS 08/27/21 16:45 08/28/21 12:08 Nystatin (Nystop) 1 betsy BID TP 08/27/21 21:00 08/28/21 08:20 Sodium Phosphate 20 mmol/Sodium Chloride 256.6667 ml @ 64.167 m... 1X ONCE IV 08/28/21 09:00 08/28/21 12:59 DC 08/28/21 09:52 Justifications for Admission Other Justification COVID-19 positive test (U07.1, COVID-19) with Acute Pneumonia (J12.89, Other viral pneumonia) (If respiratory failure or sepsis present, add as separate assessment) MONICA MINOR MD Aug 28, 2021 14:03
[2021-08-28 14:56] VITALS: BP 180/76
[2021-08-28 19:06] VITALS: BP 183/84
[2021-08-28 22:55] VITALS: BP 161/81
--- NOTE | 2021-08-28 23:08 | NUR ---
O2Sat 81% to 83% with NRB Mask at 15L. Placed 15L highflow NC along with NRB in attempt to increase O2Sat. Unsuccessful. Called RT for Vapotherm. Placed Vapotherm at 40L and 100% Fio2 along with 15L NRB. Patient O2Sat currently 85% to 86%. Patient is alert. Follows commands. Patient code status is Do Not Intubate.
[2021-08-29] MEDS: STERILE WATER for RESP 2,000 ML BAG. INH PRN ×2 (00:01→20:20)
[2021-08-29 03:32] VITALS: BP 181/87
[2021-08-29 05:26] LABS: BASO % 0 % (0-3); EOS % 0 % (0-3); HEMATOCRIT 35.2 % (36.0-47.0); HEMOGLOBIN 11.2 g/dL (12.0-15.5); LYMPH # 0.9 x10^3/uL (1.0-4.8); LYMPH % 11 % (24-48); MEAN CORPUSCULAR HEMOGLOBIN 26 pg (25-35); MEAN CORPUSCULAR HGB CONC 32 g/dL (31-37); MEAN CORPUSCULAR VOLUME 82 fL (79-100); MONO # 0.7 x10^3/uL (0.0-1.1); MONO % 9 % (0-9); NEUT # 6.5 x10^3/uL (1.8-7.7); NEUT % 80 % (31-73); PLATELET COUNT 228 x10^3/uL (140-400); RED BLOOD COUNT 4.31 x10^6/uL (3.50-5.40); WHITE BLOOD COUNT 8.1 x10^3/uL (4.0-11.0)
[2021-08-29 05:44] LABS: CALCIUM 7.7 mg/dL (8.5-10.1); GFR 67.5; MAGNESIUM 2.2 mg/dL (1.8-2.4); POTASSIUM 3.9 mmol/L (3.5-5.1)
[2021-08-29] MEDS: LORazepam 0.5 MG TABLET PO PRN ×2 (06:16→23:45)
[2021-08-29 07:00] VITALS: BP 194/87
[2021-08-29] MEDS: PANTOPRAZOLE 40 MG TABLET.DR. PO SCH (07:30)
[2021-08-29] MEDS: ZINC SULFATE 220 MG CAPSULE. PO SCH (09:00)
[2021-08-29] MEDS: ASCORBIC ACID 1,000 MG TABLET PO SCH ×3 (09:00→20:44)
[2021-08-29] MEDS: THIAMINE 100 MG TABLET. PO SCH (09:00)
[2021-08-29] MEDS: NYSTATIN TOPICAL POWDER 15GM BOTTLE. TP SCH ×2 (09:00→20:45)
--- NOTE | 2021-08-29 10:42 | NUR ---
NOTED THIS AM PT OXYGEN SATURATION THE MONITOR TO BE IN 60S. ASSESS IN ROOM AND FOUND SHE HAD TAKEN HER OXYGEN OFF. REPLACE OXYGEN AND SATURATION RETURN TO THE MID 80S. CONTACT DR. CHAIREZ AND INFORMED HIM OF PT'S CONDITION. INSTRUCTED TO PLACE ORDER FOR RT TO PLACE PT ON BIPAP. PT REMAINS NO INTUBATION. WILL CONTINUE TO ASSESS.
--- NOTE | 2021-08-29 10:54 | NUR ---
SS following up with discharge planning. SS reviewed pt chart and discussed with pt RN. Pt is currently on Vapotherm and Non-Rebreather at 100%. Order placed for BIPAP this morning. COVID19 positive. Pt on IV Decadron. Pt is DNI (No Intubation). Not stable. SS will continue to follow for discharge planning.
[2021-08-29] MEDS: ENOXAPARIN 40 MG/0.4 ML SYRINGE. SQ SCH ×2 (10:55→20:46)
[2021-08-29] MEDS: DEXAMETHASONE SOD PHOS 4 MG/ML VIAL IVP SCH (10:56)
[2021-08-29 11:00] VITALS: BP 198/82
[2021-08-29] MEDS: LABETALOL 20 MG/4 ML DISP.SYRIN. IVP PRN (11:04)
--- NOTE | 2021-08-29 12:09 | PDOC ---
PULMONARY PROGRESS NOTES DATE: 08/29/21 TIME: 12:07 Subjective Patient had worsening hypoxia. Now on BiPAP. 100% FiO2 Vitals Vital Signs Date Time Temp Pulse Resp B/P (MAP) Pulse Ox O2 Delivery O2 Flow Rate FiO2 08/29/21 11:09 90 BiPAP/CPAP 08/29/21 11:04 87 198/82 08/29/21 08:00 15.0 08/29/21 07:00 97.5 20 97.5 Comments Visual exam done due to COVID-19 pandemia. No paradoxical breathing. No respiratory distress. Trace pitting edema Labs Laboratory Tests Test 08/28/21 05:20 08/29/21 04:30 White Blood Count 8.0 x10^3/uL (4.0-11.0) 8.1 x10^3/uL (4.0-11.0) Red Blood Count 4.21 x10^6/uL (3.50-5.40) 4.31 x10^6/uL (3.50-5.40) Hemoglobin 11.2 g/dL (12.0-15.5) 11.2 g/dL (12.0-15.5) Hematocrit 34.6 % (36.0-47.0) 35.2 % (36.0-47.0) Mean Corpuscular Volume 82 fL (79-100) 82 fL (79-100) Mean Corpuscular Hemoglobin 27 pg (25-35) 26 pg (25-35) Mean Corpuscular Hemoglobin Concent 32 g/dL (31-37) 32 g/dL (31-37) Red Cell Distribution Width 14.8 % (11.5-14.5) 15.0 % (11.5-14.5) Platelet Count 215 x10^3/uL (140-400) 228 x10^3/uL (140-400) Neutrophils (%) (Auto) 80 % (31-73) 80 % (31-73) Lymphocytes (%) (Auto) 11 % (24-48) 11 % (24-48) Monocytes (%) (Auto) 9 % (0-9) 9 % (0-9) Eosinophils (%) (Auto) 0 % (0-3) 0 % (0-3) Basophils (%) (Auto) 0 % (0-3) 0 % (0-3) Neutrophils # (Auto) 6.3 x10^3/uL (1.8-7.7) 6.5 x10^3/uL (1.8-7.7) Lymphocytes # (Auto) 0.9 x10^3/uL (1.0-4.8) 0.9 x10^3/uL (1.0-4.8) Monocytes # (Auto) 0.7 x10^3/uL (0.0-1.1) 0.7 x10^3/uL (0.0-1.1) Eosinophils # (Auto) 0.0 x10^3/uL (0.0-0.7) 0.0 x10^3/uL (0.0-0.7) Basophils # (Auto) 0.0 x10^3/uL (0.0-0.2) 0.0 x10^3/uL (0.0-0.2) Sodium Level 141 mmol/L (136-145) 142 mmol/L (136-145) Potassium Level 4.3 mmol/L (3.5-5.1) 3.9 mmol/L (3.5-5.1) Chloride Level 107 mmol/L (98-107) 106 mmol/L (98-107) Carbon Dioxide Level 27 mmol/L (21-32) 28 mmol/L (21-32) Anion Gap 7 (6-14) 8 (6-14) Blood Urea Nitrogen 20 mg/dL (7-20) 20 mg/dL (7-20) Creatinine 1.2 mg/dL (0.6-1.0) 1.0 mg/dL (0.6-1.0) Estimated GFR (Cockcroft-Gault) 54.7 67.5 Glucose Level 165 mg/dL (70-99) 146 mg/dL (70-99) Calcium Level 7.8 mg/dL (8.5-10.1) 7.7 mg/dL (8.5-10.1) Phosphorus Level 2.3 mg/dL (2.6-4.7) Magnesium Level 2.2 mg/dL (1.8-2.4) 2.2 mg/dL (1.8-2.4) Laboratory Tests Test 08/29/21 04:30 White Blood Count 8.1 x10^3/uL (4.0-11.0) Red Blood Count 4.31 x10^6/uL (3.50-5.40) Hemoglobin 11.2 g/dL (12.0-15.5) Hematocrit 35.2 % (36.0-47.0) Mean Corpuscular Volume 82 fL (79-100) Mean Corpuscular Hemoglobin 26 pg (25-35) Mean Corpuscular Hemoglobin Concent 32 g/dL (31-37) Red Cell Distribution Width 15.0 % (11.5-14.5) Platelet Count 228 x10^3/uL (140-400) Neutrophils (%) (Auto) 80 % (31-73) Lymphocytes (%) (Auto) 11 % (24-48) Monocytes (%) (Auto) 9 % (0-9) Eosinophils (%) (Auto) 0 % (0-3) Basophils (%) (Auto) 0 % (0-3) Neutrophils # (Auto) 6.5 x10^3/uL (1.8-7.7) Lymphocytes # (Auto) 0.9 x10^3/uL (1.0-4.8) Monocytes # (Auto) 0.7 x10^3/uL (0.0-1.1) Eosinophils # (Auto) 0.0 x10^3/uL (0.0-0.7) Basophils # (Auto) 0.0 x10^3/uL (0.0-0.2) Sodium Level 142 mmol/L (136-145) Potassium Level 3.9 mmol/L (3.5-5.1) Chloride Level 106 mmol/L (98-107) Carbon Dioxide Level 28 mmol/L (21-32) Anion Gap 8 (6-14) Blood Urea Nitrogen 20 mg/dL (7-20) Creatinine 1.0 mg/dL (0.6-1.0) Estimated GFR (Cockcroft-Gault) 67.5 Glucose Level 146 mg/dL (70-99) Calcium Level 7.7 mg/dL (8.5-10.1) Magnesium Level 2.2 mg/dL (1.8-2.4) Medications Active Scripts Medications Dose Route/Sig Max Daily Dose Days Date Category Vitamin D2 (Ergocalciferol (Vitamin D2)) 1,250 Mcg Capsule 1,250 Mcg PO WEEKLY 08/27/21 Reported Naproxen Cr (Naproxen Sodium) 500 Mg Tbmp.24hr 1 Tab PO BID PRN 30 08/27/21 Reported Gabapentin (Gabapentin) 300 Mg Capsule 300 Mg PO TID 08/27/21 Reported Triamcinolone Acetonide 80 Gm Oint...g. 1 Betty TP BID 08/27/21 Reported Atorvastatin Calcium 40 Mg Tablet 1 Tab PO DAILY 08/27/21 Reported Tizanidine Hcl 4 Mg Tablet 1 Tab PO BID 08/27/21 Reported Oxybutynin Chloride Er (Oxybutynin Chloride) 5 Mg Tab.er.24 1 Tab PO DAILY 08/27/21 Reported Impression . 1. Acute hypoxic respiratory failure secondary to COVID-19 pneumonia/acute lung injury and early ARDS. Now requiring BiPAP. 2. Abnormal chest x-ray consistent with viral pneumonia. 3. 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 4. History of tobaccoism. Quit 2 years ago. 5. Acute kidney injury versus chronic kidney disease. 6. Increased CPK and troponin level. Plan . 1. Continue with present BiPAP./100% FiO2. 2. Monitor respiratory status closely. May add Vapotherm. 3. Continue dexamethasone for a total of 10 days. 4. Lovenox for DVT prophylaxis. 5. PPI. 6. Per patient request, patient not to be intubated. DNI. 7. Tocilizumab is not available in the hospital. Patient too late for remdesivir. 8. Discussed with RN. Continue present supportive care. ADIEL CHAIREZ MD Aug 29, 2021 12:09
--- NOTE | 2021-08-29 14:54 | PDOC ---
[employer] PROGRESS NOTE Date of Service DOS: DATE: 08/29/21 TIME: 14:53 Chief Complaint Chief Complaint Assessment/Plan Acute hypoxic respiratory failure secondary to COVID-19 pneumonia VIDAL due to vasomotor nephropathy Mildly elevated troponin level suggestive of type II demand ischemia Morbid obesity History of stroke Admit to hospitalist service for further management Admit to medicine for further management Pulmonology consult Continue IV thiamine and vitamin C IV dexamethasone daily IV Remdesivir if patient requires O2 supplementation beyond there baseline Pending CRP, D-dimer labs Titrate O2 supplementation to maintain O2 saturation greater than 92% Empiric IV antibiotics if patient has clinical presentation for bacterial pneumonia Lovenox for DVT prophylaxis Protonix while on steroids GI prophylaxis Cardiac diet DNR code Discussed with RN and SW Disposition inpatient management as above Surrogate decision maker is the History of Present Illness History of Present Illness 66-year-old female with a past medical history of stroke with left-sided hemiparesis, tobacco misuse and possible COPD who presents events with 2 days of cough, shortness of breath, generalized weakness and fatigue. Patient called EMS for the symptoms and she was saturating at 60% on room air and was placed on 4 L nasal cannula and improved to 94%. Patient is not vaccinated for influenza or Covid. also has similar symptoms. Denies fevers, abdominal pain, chest pain, nausea vomiting or diarrhea or dysuria or hematuria. Patient does not wear any oxygen at home. She quit smoking several years ago, but she denies any known history of pulmonary disease. She had a previous severe stroke with residual left hemiparesis, that is unchanged. She has residual speech difficulty dysarthria which is unchanged as well. She usually goes to [facility] for her care. 08/28/2021 No acute events overnight. Patient seen and examined bedside. Patient appears comfortable on nonrebreathing mask and saturating 94% on 15 L. Continue with IV steroids and monitor closely. Appreciate pulmonology recommendations to continue with current care. And the patient request not to be intubated still. Patient's chart, labs, images were reviewed and discussed with RN 08/29/2021 No acute events overnight. Patient seen examined bedside. Saturating 82% on Vapotherm. Patient with worsening hypoxia. Patient's chart, labs, images were reviewed and discussed with RN Vitals/I&O Vitals/I&O: Vital Signs Date Time Temp Pulse Resp B/P (MAP) Pulse Ox O2 Delivery O2 Flow Rate FiO2 08/29/21 11:09 90 BiPAP/CPAP 08/29/21 11:04 87 198/82 08/29/21 11:00 98.0 37 40.0 98.0 I & O 08/28/21 08/28/21 08/29/21 15:00 23:00 07:00 Intake Total 220 ml 0 ml Balance 220 ml 0 ml Physical Exam General: Alert, Oriented X3, Cooperative Heart: Regular rate Abdomen: Normal bowel sounds Extremities: No clubbing Skin: No rashes Labs Labs: Laboratory Tests Test 08/29/21 04:30 White Blood Count 8.1 x10^3/uL (4.0-11.0) Red Blood Count 4.31 x10^6/uL (3.50-5.40) Hemoglobin 11.2 g/dL (12.0-15.5) Hematocrit 35.2 % (36.0-47.0) Mean Corpuscular Volume 82 fL (79-100) Mean Corpuscular Hemoglobin 26 pg (25-35) Mean Corpuscular Hemoglobin Concent 32 g/dL (31-37) Red Cell Distribution Width 15.0 % (11.5-14.5) Platelet Count 228 x10^3/uL (140-400) Neutrophils (%) (Auto) 80 % (31-73) Lymphocytes (%) (Auto) 11 % (24-48) Monocytes (%) (Auto) 9 % (0-9) Eosinophils (%) (Auto) 0 % (0-3) Basophils (%) (Auto) 0 % (0-3) Neutrophils # (Auto) 6.5 x10^3/uL (1.8-7.7) Lymphocytes # (Auto) 0.9 x10^3/uL (1.0-4.8) Monocytes # (Auto) 0.7 x10^3/uL (0.0-1.1) Eosinophils # (Auto) 0.0 x10^3/uL (0.0-0.7) Basophils # (Auto) 0.0 x10^3/uL (0.0-0.2) Sodium Level 142 mmol/L (136-145) Potassium Level 3.9 mmol/L (3.5-5.1) Chloride Level 106 mmol/L (98-107) Carbon Dioxide Level 28 mmol/L (21-32) Anion Gap 8 (6-14) Blood Urea Nitrogen 20 mg/dL (7-20) Creatinine 1.0 mg/dL (0.6-1.0) Estimated GFR (Cockcroft-Gault) 67.5 Glucose Level 146 mg/dL (70-99) Calcium Level 7.7 mg/dL (8.5-10.1) Magnesium Level 2.2 mg/dL (1.8-2.4) Assessment and Plan Assessmemt and Plan Problems Medical Problems: (1) COVID-19 Status: Acute (2) Pneumonia due to COVID-19 virus Status: Acute (3) Respiratory failure with hypoxia Status: Acute Comment Review of Relevant I have reviewed the following items allyn (where applicable) has been applied. Medications: Current Medications Medications (Trade) Dose Ordered Sig/Alex Route PRN Reason Start Time Stop Time Status Last Admin Dose Admin Enoxaparin Sodium (Lovenox 40mg Syringe) 40 mg BID SQ 08/28/21 21:00 08/29/21 10:55 Sterile Water (WATER for RESP) 2,000 ml CONT PRN INH VIA VAPOTHERM DEVICE 08/28/21 23:00 08/29/21 00:01 Justifications for Admission Other Justification COVID-19 positive test (U07.1, COVID-19) with Acute Pneumonia (J12.89, Other viral pneumonia) (If respiratory failure or sepsis present, add as separate assessment) MONICA MINOR MD Aug 29, 2021 14:54
[2021-08-29 15:00] VITALS: BP 192/89
--- NOTE | 2021-08-29 15:28 | NUR ---
SPOKE WITH PT'S SON AND DESIGNATED TIM RAMIREZ ABOUT PT'S CONDITION. INFORMED THEM THAT PT IS NOW ON BIPAP AT 100 PERCENT OXYGEN AND SHE WOULD NOT BE ABLE TO SPEAK ON THE PHONE HER OXYGEN WILL IMMEDIATELY DESATURATE. INFORMED THEM THAT IF PT'S CONDITION DETERIORATES WE WILL SPEAK WITH [employer] ABOUT ALLOWING FAMILY TO VISIT.
[2021-08-29 19:30] VITALS: BP 195/76
[2021-08-29 23:20] VITALS: BP 196/113
[2021-08-29] MEDS: hydrALAZINE 20 MG/ML VIAL. IVP PRN (23:38)
[2021-08-30] VITALS (7 sets, daily range): BP systolic 146–189; BP diastolic 62–105
[2021-08-30] MEDS: PANTOPRAZOLE 40 MG TABLET.DR. PO SCH (07:30)
--- NOTE | 2021-08-30 07:30 | PDOC ---
PULMONARY PROGRESS NOTES DATE: 08/30/21 TIME: 07:28 Subjective on BiPAP. 100% FiO2 Vitals Vital Signs Date Time Temp Pulse Resp B/P (MAP) Pulse Ox O2 Delivery O2 Flow Rate FiO2 08/30/21 04:12 94 BiPAP/CPAP 08/30/21 03:20 98.0 85 28 189/87 (121) 40.0 98.0 Comments Visual exam done due to COVID-19 pandemia. on bipap RRR No paradoxical breathing. No respiratory distress. Trace pitting edema Labs Laboratory Tests Test 08/29/21 04:30 White Blood Count 8.1 x10^3/uL (4.0-11.0) Red Blood Count 4.31 x10^6/uL (3.50-5.40) Hemoglobin 11.2 g/dL (12.0-15.5) Hematocrit 35.2 % (36.0-47.0) Mean Corpuscular Volume 82 fL (79-100) Mean Corpuscular Hemoglobin 26 pg (25-35) Mean Corpuscular Hemoglobin Concent 32 g/dL (31-37) Red Cell Distribution Width 15.0 % (11.5-14.5) Platelet Count 228 x10^3/uL (140-400) Neutrophils (%) (Auto) 80 % (31-73) Lymphocytes (%) (Auto) 11 % (24-48) Monocytes (%) (Auto) 9 % (0-9) Eosinophils (%) (Auto) 0 % (0-3) Basophils (%) (Auto) 0 % (0-3) Neutrophils # (Auto) 6.5 x10^3/uL (1.8-7.7) Lymphocytes # (Auto) 0.9 x10^3/uL (1.0-4.8) Monocytes # (Auto) 0.7 x10^3/uL (0.0-1.1) Eosinophils # (Auto) 0.0 x10^3/uL (0.0-0.7) Basophils # (Auto) 0.0 x10^3/uL (0.0-0.2) Sodium Level 142 mmol/L (136-145) Potassium Level 3.9 mmol/L (3.5-5.1) Chloride Level 106 mmol/L (98-107) Carbon Dioxide Level 28 mmol/L (21-32) Anion Gap 8 (6-14) Blood Urea Nitrogen 20 mg/dL (7-20) Creatinine 1.0 mg/dL (0.6-1.0) Estimated GFR (Cockcroft-Gault) 67.5 Glucose Level 146 mg/dL (70-99) Calcium Level 7.7 mg/dL (8.5-10.1) Magnesium Level 2.2 mg/dL (1.8-2.4) Medications Active Scripts Medications Dose Route/Sig Max Daily Dose Days Date Category Vitamin D2 (Ergocalciferol (Vitamin D2)) 1,250 Mcg Capsule 1,250 Mcg PO WEEKLY 08/27/21 Reported Naproxen Cr (Naproxen Sodium) 500 Mg Tbmp.24hr 1 Tab PO BID PRN 30 08/27/21 Reported Gabapentin (Gabapentin) 300 Mg Capsule 300 Mg PO TID 08/27/21 Reported Triamcinolone Acetonide 80 Gm Oint...g. 1 Betty TP BID 08/27/21 Reported Atorvastatin Calcium 40 Mg Tablet 1 Tab PO DAILY 08/27/21 Reported Tizanidine Hcl 4 Mg Tablet 1 Tab PO BID 08/27/21 Reported Oxybutynin Chloride Er (Oxybutynin Chloride) 5 Mg Tab.er.24 1 Tab PO DAILY 08/27/21 Reported Impression . 1. Acute hypoxic respiratory failure secondary to COVID-19 pneumonia/acute lung injury and early ARDS. Now requiring BiPAP. 2. Abnormal chest x-ray consistent with viral pneumonia. 3. 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 4. History of tobaccoism. Quit 2 years ago. 5. Acute kidney injury versus chronic kidney disease. 6. Increased CPK and troponin level. Plan . 1. Continue with present BiPAP. titrate fio2 to keep sat 90% 2. Monitor respiratory status closely. May add Vapotherm if needed 3. Continue dexamethasone for a total of 10 days. 4. Lovenox for DVT prophylaxis. 5. PPI. 6. dr carrillo discussed w pt Per patient request, patient not to be intubated. DNI. 7. Tocilizumab is not available in the hospital. out of window for remdesivir. 8. Discussed with RN. Continue present supportive care. KADIE MADDOX MD Aug 30, 2021 07:30
[2021-08-30] MEDS: DEXAMETHASONE SOD PHOS 4 MG/ML VIAL IVP SCH (08:14)
[2021-08-30] MEDS: ENOXAPARIN 40 MG/0.4 ML SYRINGE. SQ SCH ×2 (08:15→19:51)
[2021-08-30] MEDS: ZINC SULFATE 220 MG CAPSULE. PO SCH (08:29)
[2021-08-30] MEDS: ASCORBIC ACID 1,000 MG TABLET PO SCH ×3 (08:29→19:44)
[2021-08-30] MEDS: THIAMINE 100 MG TABLET. PO SCH (08:29)
[2021-08-30] MEDS: NYSTATIN TOPICAL POWDER 15GM BOTTLE. TP SCH ×2 (09:12→19:51)
[2021-08-30 09:54] LABS: BASO % 0 % (0-3); EOS % 0 % (0-3); HEMATOCRIT 35.4 % (36.0-47.0); HEMOGLOBIN 11.5 g/dL (12.0-15.5); LYMPH # 0.8 x10^3/uL (1.0-4.8); LYMPH % 10 % (24-48); MEAN CORPUSCULAR HEMOGLOBIN 27 pg (25-35); MEAN CORPUSCULAR HGB CONC 33 g/dL (31-37); MEAN CORPUSCULAR VOLUME 82 fL (79-100); MONO # 0.7 x10^3/uL (0.0-1.1); MONO % 8 % (0-9); NEUT # 6.7 x10^3/uL (1.8-7.7); NEUT % 81 % (31-73); PLATELET COUNT 243 x10^3/uL (140-400); RED BLOOD COUNT 4.34 x10^6/uL (3.50-5.40); RED CELL DISTRIBUTION WIDTH 14.8 % (11.5-14.5); WHITE BLOOD COUNT 8.2 x10^3/uL (4.0-11.0)
[2021-08-30 10:19] LABS: CALCIUM 8.1 mg/dL (8.5-10.1); CREATININE 0.9 mg/dL (0.6-1.0); GFR 76.3; MAGNESIUM 2.4 mg/dL (1.8-2.4)
--- NOTE | 2021-08-30 12:15 | PDOC ---
[employer] PROGRESS NOTE Date of Service DOS: DATE: 08/30/21 TIME: 12:14 Chief Complaint Chief Complaint Assessment/Plan Acute hypoxic respiratory failure secondary to COVID-19 pneumonia VIDAL due to vasomotor nephropathy Mildly elevated troponin level suggestive of type II demand ischemia Morbid obesity History of stroke Admit to hospitalist service for further management Admit to medicine for further management Pulmonology consult Continue IV thiamine and vitamin C IV dexamethasone daily IV Remdesivir if patient requires O2 supplementation beyond there baseline Pending CRP, D-dimer labs Titrate O2 supplementation to maintain O2 saturation greater than 92% Empiric IV antibiotics if patient has clinical presentation for bacterial pneumonia Lovenox for DVT prophylaxis Protonix while on steroids GI prophylaxis Cardiac diet DNR code Discussed with RN and SW Disposition inpatient management as above Surrogate decision maker is the History of Present Illness History of Present Illness 66-year-old female with a past medical history of stroke with left-sided hemiparesis, tobacco misuse and possible COPD who presents events with 2 days of cough, shortness of breath, generalized weakness and fatigue. Patient called EMS for the symptoms and she was saturating at 60% on room air and was placed on 4 L nasal cannula and improved to 94%. Patient is not vaccinated for influenza or Covid. also has similar symptoms. Denies fevers, abdominal pain, chest pain, nausea vomiting or diarrhea or dysuria or hematuria. Patient does not wear any oxygen at home. She quit smoking several years ago, but she denies any known history of pulmonary disease. She had a previous severe stroke with residual left hemiparesis, that is unchanged. She has residual speech difficulty dysarthria which is unchanged as well. She usually goes to [facility] for her care. 08/28/2021 No acute events overnight. Patient seen and examined bedside. Patient appears comfortable on nonrebreathing mask and saturating 94% on 15 L. Continue with IV steroids and monitor closely. Appreciate pulmonology recommendations to continue with current care. And the patient request not to be intubated still. Patient's chart, labs, images were reviewed and discussed with RN 08/29/2021 No acute events overnight. Patient seen examined bedside. Saturating 82% on Vapotherm. Patient with worsening hypoxia. Patient's chart, labs, images were reviewed and discussed with RN 08/30/2021 No acute events overnight. Seen and examined bedside. Tolerating BiPAP at 93% 100% FiO2. Patient is DNI. No concerns from nursing. Patient's chart, labs, images were reviewed and discussed with RN Vitals/I&O Vitals/I&O: Vital Signs Date Time Temp Pulse Resp B/P (MAP) Pulse Ox O2 Delivery O2 Flow Rate FiO2 08/30/21 11:41 93 BiPAP/CPAP 08/30/21 07:47 40.0 08/30/21 07:00 97.0 89 25 146/62 (90) 97.0 I & O 08/29/21 08/29/21 08/30/21 15:00 23:00 07:00 Intake Total 180 ml 200 ml 120 ml Balance 180 ml 200 ml 120 ml Physical Exam General: Alert, Oriented X3, Cooperative Heart: Regular rate Abdomen: Normal bowel sounds Extremities: No clubbing Skin: No rashes Labs Labs: Laboratory Tests Test 08/30/21 09:05 White Blood Count 8.2 x10^3/uL (4.0-11.0) Red Blood Count 4.34 x10^6/uL (3.50-5.40) Hemoglobin 11.5 g/dL (12.0-15.5) Hematocrit 35.4 % (36.0-47.0) Mean Corpuscular Volume 82 fL (79-100) Mean Corpuscular Hemoglobin 27 pg (25-35) Mean Corpuscular Hemoglobin Concent 33 g/dL (31-37) Red Cell Distribution Width 14.8 % (11.5-14.5) Platelet Count 243 x10^3/uL (140-400) Neutrophils (%) (Auto) 81 % (31-73) Lymphocytes (%) (Auto) 10 % (24-48) Monocytes (%) (Auto) 8 % (0-9) Eosinophils (%) (Auto) 0 % (0-3) Basophils (%) (Auto) 0 % (0-3) Neutrophils # (Auto) 6.7 x10^3/uL (1.8-7.7) Lymphocytes # (Auto) 0.8 x10^3/uL (1.0-4.8) Monocytes # (Auto) 0.7 x10^3/uL (0.0-1.1) Eosinophils # (Auto) 0.0 x10^3/uL (0.0-0.7) Basophils # (Auto) 0.0 x10^3/uL (0.0-0.2) Sodium Level 143 mmol/L (136-145) Potassium Level 4.0 mmol/L (3.5-5.1) Chloride Level 105 mmol/L (98-107) Carbon Dioxide Level 29 mmol/L (21-32) Anion Gap 9 (6-14) Blood Urea Nitrogen 23 mg/dL (7-20) Creatinine 0.9 mg/dL (0.6-1.0) Estimated GFR (Cockcroft-Gault) 76.3 Glucose Level 173 mg/dL (70-99) Calcium Level 8.1 mg/dL (8.5-10.1) Magnesium Level 2.4 mg/dL (1.8-2.4) Assessment and Plan Assessmemt and Plan Problems Medical Problems: (1) COVID-19 Status: Acute (2) Pneumonia due to COVID-19 virus Status: Acute (3) Respiratory failure with hypoxia Status: Acute Comment Review of Relevant I have reviewed the following items allyn (where applicable) has been applied. Justifications for Admission Other Justification COVID-19 positive test (U07.1, COVID-19) with Acute Pneumonia (J12.89, Other viral pneumonia) (If respiratory failure or sepsis present, add as separate assessment) MONICA MINOR MD Aug 30, 2021 12:15
[2021-08-30] MEDS: hydrALAZINE 20 MG/ML VIAL. IVP PRN (17:21)
[2021-08-30] MEDS: STERILE WATER for RESP 2,000 ML BAG. INH PRN (22:54)
[2021-08-31 03:30] VITALS: BP 199/70
[2021-08-31 07:00] VITALS: BP 180/75
[2021-08-31] MEDS: PANTOPRAZOLE 40 MG TABLET.DR. PO SCH (07:30)
--- NOTE | 2021-08-31 07:30 | PDOC ---
PULMONARY PROGRESS NOTES DATE: 08/31/21 TIME: 07:28 Subjective on BiPAP. 100% FiO2 npo Vitals Vital Signs Date Time Temp Pulse Resp B/P (MAP) Pulse Ox O2 Delivery O2 Flow Rate FiO2 08/31/21 04:40 95 BiPAP/CPAP 08/31/21 03:30 97.9 81 26 199/70 (113) 40.0 97.9 Comments Visual exam done due to COVID-19 pandemia. on bipap RRR No paradoxical breathing. No respiratory distress. Trace pitting edema Labs Laboratory Tests Test 08/30/21 09:05 White Blood Count 8.2 x10^3/uL (4.0-11.0) Red Blood Count 4.34 x10^6/uL (3.50-5.40) Hemoglobin 11.5 g/dL (12.0-15.5) Hematocrit 35.4 % (36.0-47.0) Mean Corpuscular Volume 82 fL (79-100) Mean Corpuscular Hemoglobin 27 pg (25-35) Mean Corpuscular Hemoglobin Concent 33 g/dL (31-37) Red Cell Distribution Width 14.8 % (11.5-14.5) Platelet Count 243 x10^3/uL (140-400) Neutrophils (%) (Auto) 81 % (31-73) Lymphocytes (%) (Auto) 10 % (24-48) Monocytes (%) (Auto) 8 % (0-9) Eosinophils (%) (Auto) 0 % (0-3) Basophils (%) (Auto) 0 % (0-3) Neutrophils # (Auto) 6.7 x10^3/uL (1.8-7.7) Lymphocytes # (Auto) 0.8 x10^3/uL (1.0-4.8) Monocytes # (Auto) 0.7 x10^3/uL (0.0-1.1) Eosinophils # (Auto) 0.0 x10^3/uL (0.0-0.7) Basophils # (Auto) 0.0 x10^3/uL (0.0-0.2) Sodium Level 143 mmol/L (136-145) Potassium Level 4.0 mmol/L (3.5-5.1) Chloride Level 105 mmol/L (98-107) Carbon Dioxide Level 29 mmol/L (21-32) Anion Gap 9 (6-14) Blood Urea Nitrogen 23 mg/dL (7-20) Creatinine 0.9 mg/dL (0.6-1.0) Estimated GFR (Cockcroft-Gault) 76.3 Glucose Level 173 mg/dL (70-99) Calcium Level 8.1 mg/dL (8.5-10.1) Magnesium Level 2.4 mg/dL (1.8-2.4) Laboratory Tests Test 08/30/21 09:05 White Blood Count 8.2 x10^3/uL (4.0-11.0) Red Blood Count 4.34 x10^6/uL (3.50-5.40) Hemoglobin 11.5 g/dL (12.0-15.5) Hematocrit 35.4 % (36.0-47.0) Mean Corpuscular Volume 82 fL (79-100) Mean Corpuscular Hemoglobin 27 pg (25-35) Mean Corpuscular Hemoglobin Concent 33 g/dL (31-37) Red Cell Distribution Width 14.8 % (11.5-14.5) Platelet Count 243 x10^3/uL (140-400) Neutrophils (%) (Auto) 81 % (31-73) Lymphocytes (%) (Auto) 10 % (24-48) Monocytes (%) (Auto) 8 % (0-9) Eosinophils (%) (Auto) 0 % (0-3) Basophils (%) (Auto) 0 % (0-3) Neutrophils # (Auto) 6.7 x10^3/uL (1.8-7.7) Lymphocytes # (Auto) 0.8 x10^3/uL (1.0-4.8) Monocytes # (Auto) 0.7 x10^3/uL (0.0-1.1) Eosinophils # (Auto) 0.0 x10^3/uL (0.0-0.7) Basophils # (Auto) 0.0 x10^3/uL (0.0-0.2) Sodium Level 143 mmol/L (136-145) Potassium Level 4.0 mmol/L (3.5-5.1) Chloride Level 105 mmol/L (98-107) Carbon Dioxide Level 29 mmol/L (21-32) Anion Gap 9 (6-14) Blood Urea Nitrogen 23 mg/dL (7-20) Creatinine 0.9 mg/dL (0.6-1.0) Estimated GFR (Cockcroft-Gault) 76.3 Glucose Level 173 mg/dL (70-99) Calcium Level 8.1 mg/dL (8.5-10.1) Magnesium Level 2.4 mg/dL (1.8-2.4) Medications Active Scripts Medications Dose Route/Sig Max Daily Dose Days Date Category Vitamin D2 (Ergocalciferol (Vitamin D2)) 1,250 Mcg Capsule 1,250 Mcg PO WEEKLY 08/27/21 Reported Naproxen Cr (Naproxen Sodium) 500 Mg Tbmp.24hr 1 Tab PO BID PRN 30 08/27/21 Reported Gabapentin (Gabapentin) 300 Mg Capsule 300 Mg PO TID 08/27/21 Reported Triamcinolone Acetonide 80 Gm Oint...g. 1 Betty TP BID 08/27/21 Reported Atorvastatin Calcium 40 Mg Tablet 1 Tab PO DAILY 08/27/21 Reported Tizanidine Hcl 4 Mg Tablet 1 Tab PO BID 08/27/21 Reported Oxybutynin Chloride Er (Oxybutynin Chloride) 5 Mg Tab.er.24 1 Tab PO DAILY 08/27/21 Reported Impression . 1. Acute hypoxic respiratory failure secondary to COVID-19 pneumonia/acute lung injury and early ARDS. Now requiring BiPAP. 2. Abnormal chest x-ray consistent with viral pneumonia. 3. 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 4. History of tobaccoism. Quit 2 years ago. 5. Acute kidney injury versus chronic kidney disease. 6. Increased CPK and troponin level. Plan . 1. cont BiPAP. may try off bipap if able titrate fio2 to keep sat 90% 2. Monitor respiratory status closely. May add Vapotherm if needed 3. Continue dexamethasone for a total of 10 days. 4. Lovenox for DVT prophylaxis. 5. PPI. 6. dr carrillo discussed w pt Per patient request, patient not to be intubated. DNI. 7. Tocilizumab is not available in the hospital. out of window for remdesivir. Discussed with RN. Continue present supportive care. KADIE MADDOX MD Aug 31, 2021 07:30
[2021-08-31] MEDS: ZINC SULFATE 220 MG CAPSULE. PO SCH (07:53)
[2021-08-31] MEDS: THIAMINE 100 MG TABLET. PO SCH (07:53)
[2021-08-31] MEDS: ASCORBIC ACID 1,000 MG TABLET PO SCH ×3 (07:53→20:22)
[2021-08-31] MEDS: NYSTATIN TOPICAL POWDER 15GM BOTTLE. TP SCH ×2 (09:00→20:22)
[2021-08-31] MEDS: DEXAMETHASONE SOD PHOS 4 MG/ML VIAL IVP SCH (09:07)
[2021-08-31] MEDS: ENOXAPARIN 40 MG/0.4 ML SYRINGE. SQ SCH ×2 (09:07→20:21)
[2021-08-31] MEDS: hydrALAZINE 20 MG/ML VIAL. IVP PRN ×3 (09:08→20:22)
[2021-08-31] MEDS: diphenhydrAMINE 50 MG/ML VIAL IVP PRN (09:33)
--- NOTE | 2021-08-31 12:14 | PDOC ---
[employer] PROGRESS NOTE Date of Service DOS: DATE: 08/31/21 TIME: 12:12 Chief Complaint Chief Complaint Assessment/Plan Acute hypoxic respiratory failure secondary to COVID-19 pneumonia VIDAL due to vasomotor nephropathy Mildly elevated troponin level suggestive of type II demand ischemia Morbid obesity History of stroke Admit to hospitalist service for further management Admit to medicine for further management Pulmonology consult Continue IV thiamine and vitamin C IV dexamethasone daily IV Remdesivir if patient requires O2 supplementation beyond there baseline Pending CRP, D-dimer labs Titrate O2 supplementation to maintain O2 saturation greater than 92% Empiric IV antibiotics if patient has clinical presentation for bacterial pneumonia Lovenox for DVT prophylaxis Protonix while on steroids GI prophylaxis Cardiac diet DNR code Discussed with RN and SW Disposition inpatient management as above Surrogate decision maker is the History of Present Illness History of Present Illness 66-year-old female with a past medical history of stroke with left-sided hemiparesis, tobacco misuse and possible COPD who presents events with 2 days of cough, shortness of breath, generalized weakness and fatigue. Patient called EMS for the symptoms and she was saturating at 60% on room air and was placed on 4 L nasal cannula and improved to 94%. Patient is not vaccinated for influenza or Covid. also has similar symptoms. Denies fevers, abdominal pain, chest pain, nausea vomiting or diarrhea or dysuria or hematuria. Patient does not wear any oxygen at home. She quit smoking several years ago, but she denies any known history of pulmonary disease. She had a previous severe stroke with residual left hemiparesis, that is unchanged. She has residual speech difficulty dysarthria which is unchanged as well. She usually goes to [facility] for her care. 08/28/2021 No acute events overnight. Patient seen and examined bedside. Patient appears comfortable on nonrebreathing mask and saturating 94% on 15 L. Continue with IV steroids and monitor closely. Appreciate pulmonology recommendations to continue with current care. And the patient request not to be intubated still. Patient's chart, labs, images were reviewed and discussed with RN 08/29/2021 No acute events overnight. Patient seen examined bedside. Saturating 82% on Vapotherm. Patient with worsening hypoxia. Patient's chart, labs, images were reviewed and discussed with RN 08/30/2021 No acute events overnight. Seen and examined bedside. Tolerating BiPAP at 93% 100% FiO2. Patient is DNI. No concerns from nursing. Patient's chart, labs, images were reviewed and discussed with RN 08/31/2021 Patient seen and examined bedside. Not short of breath while on BiPAP 100% FiO2 saturating 95%. Blood pressures uncontrolled. Will start on p.o. amlodipine Vitals/I&O Vitals/I&O: Vital Signs Date Time Temp Pulse Resp B/P (MAP) Pulse Ox O2 Delivery O2 Flow Rate FiO2 08/31/21 09:08 81 182/75 08/31/21 08:00 Vapotherm 40.0 08/31/21 07:00 97.5 26 92 97.5 I & O 08/30/21 08/30/21 08/31/21 15:00 23:00 07:00 Intake Total 0 ml 0 ml Output Total 400 ml Balance 0 ml 0 ml -400 ml Physical Exam General: Alert, Oriented X3, Cooperative Heart: Regular rate Abdomen: Normal bowel sounds Extremities: No clubbing Skin: No rashes Assessment and Plan Assessmemt and Plan Problems Medical Problems: (1) COVID-19 Status: Acute (2) Pneumonia due to COVID-19 virus Status: Acute (3) Respiratory failure with hypoxia Status: Acute Comment Review of Relevant I have reviewed the following items allyn (where applicable) has been applied. Justifications for Admission Other Justification COVID-19 positive test (U07.1, COVID-19) with Acute Pneumonia (J12.89, Other viral pneumonia) (If respiratory failure or sepsis present, add as separate assessment) MONICA MINOR MD Aug 31, 2021 12:14
[2021-08-31 15:00] VITALS: BP 161/81
[2021-08-31] MEDS: LABETALOL 20 MG/4 ML DISP.SYRIN. IVP PRN (15:05)
[2021-08-31 19:50] VITALS: BP 181/94
[2021-08-31 23:40] VITALS: BP 205/103
[2021-09-01] MEDS: LABETALOL 20 MG/4 ML DISP.SYRIN. IVP PRN ×2 (00:07→11:48)
[2021-09-01] MEDS: STERILE WATER for RESP 2,000 ML BAG. INH PRN ×2 (02:30→22:50)
[2021-09-01 03:30] VITALS: BP 173/84
[2021-09-01 07:00] VITALS: BP 173/84
[2021-09-01] MEDS: PANTOPRAZOLE 40 MG TABLET.DR. PO SCH (07:30)
[2021-09-01] MEDS: THIAMINE 100 MG TABLET. PO SCH (07:45)
[2021-09-01] MEDS: ZINC SULFATE 220 MG CAPSULE. PO SCH (07:45)
[2021-09-01] MEDS: ASCORBIC ACID 1,000 MG TABLET PO SCH ×4 (07:45→21:55)
--- NOTE | 2021-09-01 08:24 | PDOC ---
PULMONARY PROGRESS NOTES DATE: 09/01/21 TIME: 08:23 Subjective Patient currently on BiPAP, Vapotherm, I took the BiPAP off, she tolerated Vapotherm hovering around 88 to 90% Patient had dry oral cavity, ice chips were provided Vitals Vital Signs Date Time Temp Pulse Resp B/P (MAP) Pulse Ox O2 Delivery O2 Flow Rate FiO2 09/01/21 08:12 93 BiPAP/CPAP 09/01/21 03:30 97.2 77 28 173/84 (113) 97.2 08/31/21 19:46 40.0 Comments Visual exam done due to COVID-19 pandemia. on bipap RRR No paradoxical breathing. No respiratory distress. Trace pitting edema Labs Laboratory Tests Test 08/30/21 09:05 White Blood Count 8.2 x10^3/uL (4.0-11.0) Red Blood Count 4.34 x10^6/uL (3.50-5.40) Hemoglobin 11.5 g/dL (12.0-15.5) Hematocrit 35.4 % (36.0-47.0) Mean Corpuscular Volume 82 fL (79-100) Mean Corpuscular Hemoglobin 27 pg (25-35) Mean Corpuscular Hemoglobin Concent 33 g/dL (31-37) Red Cell Distribution Width 14.8 % (11.5-14.5) Platelet Count 243 x10^3/uL (140-400) Neutrophils (%) (Auto) 81 % (31-73) Lymphocytes (%) (Auto) 10 % (24-48) Monocytes (%) (Auto) 8 % (0-9) Eosinophils (%) (Auto) 0 % (0-3) Basophils (%) (Auto) 0 % (0-3) Neutrophils # (Auto) 6.7 x10^3/uL (1.8-7.7) Lymphocytes # (Auto) 0.8 x10^3/uL (1.0-4.8) Monocytes # (Auto) 0.7 x10^3/uL (0.0-1.1) Eosinophils # (Auto) 0.0 x10^3/uL (0.0-0.7) Basophils # (Auto) 0.0 x10^3/uL (0.0-0.2) Sodium Level 143 mmol/L (136-145) Potassium Level 4.0 mmol/L (3.5-5.1) Chloride Level 105 mmol/L (98-107) Carbon Dioxide Level 29 mmol/L (21-32) Anion Gap 9 (6-14) Blood Urea Nitrogen 23 mg/dL (7-20) Creatinine 0.9 mg/dL (0.6-1.0) Estimated GFR (Cockcroft-Gault) 76.3 Glucose Level 173 mg/dL (70-99) Calcium Level 8.1 mg/dL (8.5-10.1) Magnesium Level 2.4 mg/dL (1.8-2.4) Medications Active Scripts Medications Dose Route/Sig Max Daily Dose Days Date Category Vitamin D2 (Ergocalciferol (Vitamin D2)) 1,250 Mcg Capsule 1,250 Mcg PO WEEKLY 08/27/21 Reported Naproxen Cr (Naproxen Sodium) 500 Mg Tbmp.24hr 1 Tab PO BID PRN 30 08/27/21 Reported Gabapentin (Gabapentin) 300 Mg Capsule 300 Mg PO TID 08/27/21 Reported Triamcinolone Acetonide 80 Gm Oint...g. 1 Betty TP BID 08/27/21 Reported Atorvastatin Calcium 40 Mg Tablet 1 Tab PO DAILY 08/27/21 Reported Tizanidine Hcl 4 Mg Tablet 1 Tab PO BID 08/27/21 Reported Oxybutynin Chloride Er (Oxybutynin Chloride) 5 Mg Tab.er.24 1 Tab PO DAILY 08/27/21 Reported Impression . 1. Acute hypoxic respiratory failure secondary to COVID-19 pneumonia/acute lung injury and early ARDS. 2. Abnormal chest x-ray consistent with viral pneumonia. 3. 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 4. History of tobaccoism. Quit 2 years ago. 5. Acute kidney injury versus chronic kidney disease. 6. Increased CPK and troponin level. Plan . Updated 09/01 Continue BiPAP and Vapotherm As needed ice chips Dexamethasone DVT prophylaxis Patient is DNI. 1. cont BiPAP. may try off bipap if able titrate fio2 to keep sat 90% 2. Monitor respiratory status closely. May add Vapotherm if needed 3. Continue dexamethasone for a total of 10 days. 4. Lovenox for DVT prophylaxis. 5. PPI. 6. dr carrillo discussed w pt Per patient request, patient not to be intubated. DNI. 7. Tocilizumab is not available in the hospital. out of window for remdesivir. Discussed with RN. Continue present supportive care. JULIETH TORRES MD Sep 01, 2021 08:24
[2021-09-01] MEDS: hydrALAZINE 20 MG/ML VIAL. IVP PRN ×3 (08:26→21:55)
[2021-09-01] MEDS: ENOXAPARIN 40 MG/0.4 ML SYRINGE. SQ SCH ×2 (08:26→21:55)
[2021-09-01] MEDS: NYSTATIN TOPICAL POWDER 15GM BOTTLE. TP SCH ×2 (08:27→21:00)
[2021-09-01] MEDS: DEXAMETHASONE SOD PHOS 4 MG/ML VIAL IVP SCH (08:27)
[2021-09-01 11:00] VITALS: BP 199/93
--- NOTE | 2021-09-01 12:58 | PDOC ---
[employer] PROGRESS NOTE Date of Service DOS: DATE: 09/01/21 TIME: 12:51 Chief Complaint Chief Complaint Acute hypoxic respiratory failure secondary to COVID-19 pneumonia VIDAL due to vasomotor nephropathy Mildly elevated troponin level suggestive of type II demand ischemia Morbid obesity History of stroke IV dexamethasone daily and vitamin supplements code status, partial, no vent IV Remdesivir if patient requires O2 supplementation beyond there baseline Pending CRP, D-dimer labs Titrate O2 supplementation to maintain O2 saturation greater than 92% Empiric IV antibiotics if patient has clinical presentation for bacterial pneumonia Lovenox for DVT prophylaxis Protonix while on steroids GI prophylaxis Cardiac diet DNR code Discussed with RN and SW Disposition inpatient management as above Surrogate decision maker is the History of Present Illness History of Present Illness 66-year-old female with a past medical history of stroke with left-sided hemiparesis, tobacco misuse and possible COPD who presents events with 2 days of cough, shortness of breath, generalized weakness and fatigue. Patient called EMS for the symptoms and she was saturating at 60% on room air and was placed on 4 L nasal cannula and improved to 94%. Patient is not vaccinated for influenza or Covid. also has similar symptoms. Denies fevers, abdominal pain, chest pain, nausea vomiting or diarrhea or dysuria or hematuria. Patient does not wear any oxygen at home. She quit smoking several years ago, but she denies any known history of pulmonary disease. She had a previous severe stroke with residual left hemiparesis, that is unchanged. She has residual speech difficulty dysarthria which is unchanged as well. She usually goes to [facility] for her care. 08/28/2021 No acute events overnight. Patient seen and examined bedside. Patient appears comfortable on nonrebreathing mask and saturating 94% on 15 L. Continue with IV steroids and monitor closely. Appreciate pulmonology recommendations to continue with current care. And the patient request not to be intubated still. Patient's chart, labs, images were reviewed and discussed with RN 08/29/2021 No acute events overnight. Patient seen examined bedside. Saturating 82% on Vapotherm. Patient with worsening hypoxia. Patient's chart, labs, images were reviewed and discussed with RN 08/30/2021 No acute events overnight. Seen and examined bedside. Tolerating BiPAP at 93% 100% FiO2. Patient is DNI. No concerns from nursing. Patient's chart, labs, images were reviewed and discussed with RN 08/31/2021 Patient seen and examined bedside. Not short of breath while on BiPAP 100% FiO2 saturating 95%. Blood pressures uncontrolled. started on p.o. amlodipine 09/01, BP still up, start lisinopril, is NPo, will start iv fluid Vitals/I&O Vitals/I&O: Vital Signs Date Time Temp Pulse Resp B/P (MAP) Pulse Ox O2 Delivery O2 Flow Rate FiO2 09/01/21 11:48 77 199/93 09/01/21 11:42 94 BiPAP/CPAP 09/01/21 11:00 97.2 28 97.2 09/01/21 08:00 30.0 I & O 08/31/21 08/31/21 09/01/21 15:00 23:00 07:00 Intake Total 0 ml 0 ml Output Total 2 ml 700 ml 350 ml Balance -2 ml -700 ml -350 ml Physical Exam General: Alert, Cooperative, severe distress, Other (confused, ) Heart: Regular rate Lungs: Other Abdomen: Normal bowel sounds Extremities: No clubbing Skin: No rashes Assessment and Plan Assessmemt and Plan Problems Medical Problems: (1) COVID-19 Status: Acute (2) Pneumonia due to COVID-19 virus Status: Acute (3) Respiratory failure with hypoxia Status: Acute Comment Review of Relevant I have reviewed the following items allyn (where applicable) has been applied. Justifications for Admission Other Justification COVID-19 positive test (U07.1, COVID-19) with Acute Pneumonia (J12.89, Other viral pneumonia) (If respiratory failure or sepsis present, add as separate assessment) DORYS NORRIS MD Sep 01, 2021 12:58
[2021-09-01] MEDS ORDERED: DEXTROSE 50% 25 GM / 50ML DISP.SYRIN. IV PRN (13:00)
[2021-09-01] MEDS ORDERED: PIP/TAZO PER PHARMACY MC PRN (13:00)
[2021-09-01] MEDS: LISINOPRIL 20 MG TABLET PO SCH (13:00)
[2021-09-01] MEDS: GABAPENTIN 300 MG CAPSULE. PO SCH ×3 (14:00→21:55)
[2021-09-01] MEDS: IV DEXTROSE 5 %-0.45 % NACL 1,000 ML IV SCH (14:11)
[2021-09-01] MEDS: PIPERACILLIN/TAZOBACTAM 3.375 GM in IV NORMAL SALINE 50ML 50 ML IV SCH ×2 (14:11→17:13)
--- NOTE | 2021-09-01 15:04 | NUR ---
SS following up with discharge planning. SS reviewed pt chart and discussed with pt RN. Pt is currently on Vapotherm and BIPAP at 100%. COVID19 positive. Pt on IV Zosyn and IV Decadron. Not stable. SS will continue to follow for discharge planning.
[2021-09-01] MEDS: INSULIN LISPRO 300 UNITS/3 ML VIAL. SQ SCH (17:20)
[2021-09-01 19:50] VITALS: BP 195/90
[2021-09-01 22:35] VITALS: BP 151/82
[2021-09-02] MEDS: PIPERACILLIN/TAZOBACTAM 3.375 GM in IV NORMAL SALINE 50ML 50 ML IV SCH ×4 (00:11→18:48)
[2021-09-02 03:15] VITALS: BP 173/81
[2021-09-02] MEDS: IV DEXTROSE 5 %-0.45 % NACL 1,000 ML IV SCH ×3 (03:26→23:08)
[2021-09-02 05:44] LABS: BASO % 0 % (0-3); EOS % 0 % (0-3); HEMATOCRIT 35.1 % (36.0-47.0); HEMOGLOBIN 11.2 g/dL (12.0-15.5); LYMPH # 1.2 x10^3/uL (1.0-4.8); LYMPH % 10 % (24-48); MEAN CORPUSCULAR HEMOGLOBIN 26 pg (25-35); MEAN CORPUSCULAR HGB CONC 32 g/dL (31-37); MEAN CORPUSCULAR VOLUME 82 fL (79-100); MONO # 0.9 x10^3/uL (0.0-1.1); MONO % 8 % (0-9); NEUT # 9.8 x10^3/uL (1.8-7.7); NEUT % 82 % (31-73); PLATELET COUNT 290 x10^3/uL (140-400); WHITE BLOOD COUNT 11.9 x10^3/uL (4.0-11.0)
[2021-09-02 06:12] LABS: ALBUMIN 2.3 g/dL (3.4-5.0); ALBUMIN/GLOBULIN RATIO 0.5 (1.0-1.7); CALCIUM 8.2 mg/dL (8.5-10.1); GFR 67.5; POTASSIUM 3.7 mmol/L (3.5-5.1); TOTAL BILIRUBIN 1.2 mg/dL (0.2-1.0); TOTAL PROTEIN 7.3 g/dL (6.4-8.2)
[2021-09-02 07:00] VITALS: BP 191/86
[2021-09-02] MEDS: PANTOPRAZOLE 40 MG TABLET.DR. PO SCH (07:30)
[2021-09-02] MEDS: INSULIN LISPRO 300 UNITS/3 ML VIAL. SQ SCH ×3 (08:00→17:00)
[2021-09-02] MEDS: LISINOPRIL 20 MG TABLET PO SCH (09:00)
[2021-09-02] MEDS: GABAPENTIN 300 MG CAPSULE. PO SCH ×3 (09:00→19:52)
[2021-09-02] MEDS: ZINC SULFATE 220 MG CAPSULE. PO SCH (09:00)
[2021-09-02] MEDS: ASCORBIC ACID 1,000 MG TABLET PO SCH ×3 (09:00→19:52)
[2021-09-02] MEDS: THIAMINE 100 MG TABLET. PO SCH (09:00)
[2021-09-02] MEDS: NYSTATIN TOPICAL POWDER 15GM BOTTLE. TP SCH ×2 (09:00→21:00)
--- NOTE | 2021-09-02 09:25 | PDOC ---
PULMONARY PROGRESS NOTES DATE: 09/02/21 TIME: 09:25 Subjective I took her off of BiPAP, she desaturates Patient currently on BiPAP, Vapotherm, I took the BiPAP off, she tolerated Vapotherm hovering around 88 to 90% Patient had dry oral cavity, ice chips were provided Vitals Vital Signs Date Time Temp Pulse Resp B/P (MAP) Pulse Ox O2 Delivery O2 Flow Rate FiO2 09/02/21 08:42 90 BiPAP/CPAP 09/02/21 03:15 96.7 93 28 173/81 (111) 96.7 09/01/21 08:00 30.0 Comments Visual exam done due to COVID-19 pandemia. on bipap RRR No paradoxical breathing. No respiratory distress. Trace pitting edema Lungs: Other Labs Laboratory Tests Test 09/01/21 17:16 09/01/21 21:12 09/02/21 03:50 09/02/21 07:27 Glucose (Fingerstick) 220 mg/dL (70-99) 206 mg/dL (70-99) 167 mg/dL (70-99) White Blood Count 11.9 x10^3/uL (4.0-11.0) Red Blood Count 4.30 x10^6/uL (3.50-5.40) Hemoglobin 11.2 g/dL (12.0-15.5) Hematocrit 35.1 % (36.0-47.0) Mean Corpuscular Volume 82 fL (79-100) Mean Corpuscular Hemoglobin 26 pg (25-35) Mean Corpuscular Hemoglobin Concent 32 g/dL (31-37) Red Cell Distribution Width 15.0 % (11.5-14.5) Platelet Count 290 x10^3/uL (140-400) Neutrophils (%) (Auto) 82 % (31-73) Lymphocytes (%) (Auto) 10 % (24-48) Monocytes (%) (Auto) 8 % (0-9) Eosinophils (%) (Auto) 0 % (0-3) Basophils (%) (Auto) 0 % (0-3) Neutrophils # (Auto) 9.8 x10^3/uL (1.8-7.7) Lymphocytes # (Auto) 1.2 x10^3/uL (1.0-4.8) Monocytes # (Auto) 0.9 x10^3/uL (0.0-1.1) Eosinophils # (Auto) 0.0 x10^3/uL (0.0-0.7) Basophils # (Auto) 0.0 x10^3/uL (0.0-0.2) Sodium Level 145 mmol/L (136-145) Potassium Level 3.7 mmol/L (3.5-5.1) Chloride Level 107 mmol/L (98-107) Carbon Dioxide Level 27 mmol/L (21-32) Anion Gap 11 (6-14) Blood Urea Nitrogen 27 mg/dL (7-20) Creatinine 1.0 mg/dL (0.6-1.0) Estimated GFR (Cockcroft-Gault) 67.5 BUN/Creatinine Ratio 27 (6-20) Glucose Level 171 mg/dL (70-99) Calcium Level 8.2 mg/dL (8.5-10.1) Total Bilirubin 1.2 mg/dL (0.2-1.0) Aspartate Amino Transf (AST/SGOT) 29 U/L (15-37) Alanine Aminotransferase (ALT/SGPT) 30 U/L (14-59) Alkaline Phosphatase 104 U/L (46-116) Total Protein 7.3 g/dL (6.4-8.2) Albumin 2.3 g/dL (3.4-5.0) Albumin/Globulin Ratio 0.5 (1.0-1.7) Laboratory Tests Test 09/01/21 17:16 09/01/21 21:12 09/02/21 03:50 09/02/21 07:27 Glucose (Fingerstick) 220 mg/dL (70-99) 206 mg/dL (70-99) 167 mg/dL (70-99) White Blood Count 11.9 x10^3/uL (4.0-11.0) Red Blood Count 4.30 x10^6/uL (3.50-5.40) Hemoglobin 11.2 g/dL (12.0-15.5) Hematocrit 35.1 % (36.0-47.0) Mean Corpuscular Volume 82 fL (79-100) Mean Corpuscular Hemoglobin 26 pg (25-35) Mean Corpuscular Hemoglobin Concent 32 g/dL (31-37) Red Cell Distribution Width 15.0 % (11.5-14.5) Platelet Count 290 x10^3/uL (140-400) Neutrophils (%) (Auto) 82 % (31-73) Lymphocytes (%) (Auto) 10 % (24-48) Monocytes (%) (Auto) 8 % (0-9) Eosinophils (%) (Auto) 0 % (0-3) Basophils (%) (Auto) 0 % (0-3) Neutrophils # (Auto) 9.8 x10^3/uL (1.8-7.7) Lymphocytes # (Auto) 1.2 x10^3/uL (1.0-4.8) Monocytes # (Auto) 0.9 x10^3/uL (0.0-1.1) Eosinophils # (Auto) 0.0 x10^3/uL (0.0-0.7) Basophils # (Auto) 0.0 x10^3/uL (0.0-0.2) Sodium Level 145 mmol/L (136-145) Potassium Level 3.7 mmol/L (3.5-5.1) Chloride Level 107 mmol/L (98-107) Carbon Dioxide Level 27 mmol/L (21-32) Anion Gap 11 (6-14) Blood Urea Nitrogen 27 mg/dL (7-20) Creatinine 1.0 mg/dL (0.6-1.0) Estimated GFR (Cockcroft-Gault) 67.5 BUN/Creatinine Ratio 27 (6-20) Glucose Level 171 mg/dL (70-99) Calcium Level 8.2 mg/dL (8.5-10.1) Total Bilirubin 1.2 mg/dL (0.2-1.0) Aspartate Amino Transf (AST/SGOT) 29 U/L (15-37) Alanine Aminotransferase (ALT/SGPT) 30 U/L (14-59) Alkaline Phosphatase 104 U/L (46-116) Total Protein 7.3 g/dL (6.4-8.2) Albumin 2.3 g/dL (3.4-5.0) Albumin/Globulin Ratio 0.5 (1.0-1.7) Medications Active Scripts Medications Dose Route/Sig Max Daily Dose Days Date Category Vitamin D2 (Ergocalciferol (Vitamin D2)) 1,250 Mcg Capsule 1,250 Mcg PO WEEKLY 1/5/22 Reported Naproxen Cr (Naproxen Sodium) 500 Mg Tbmp.24hr 1 Tab PO BID PRN 30 08/27/21 Reported Gabapentin (Gabapentin) 300 Mg Capsule 300 Mg PO TID 08/27/21 Reported Triamcinolone Acetonide 80 Gm Oint...g. 1 Betty TP BID 08/27/21 Reported Atorvastatin Calcium 40 Mg Tablet 1 Tab PO DAILY 08/27/21 Reported Tizanidine Hcl 4 Mg Tablet 1 Tab PO BID 08/27/21 Reported Oxybutynin Chloride Er (Oxybutynin Chloride) 5 Mg Tab.er.24 1 Tab PO DAILY 08/27/21 Reported Impression . 1. Acute hypoxic respiratory failure secondary to COVID-19 pneumonia/acute lung injury and early ARDS. 2. Abnormal chest x-ray consistent with viral pneumonia. 3. 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 4. History of tobaccoism. Quit 2 years ago. 5. Acute kidney injury versus chronic kidney disease. 6. Increased CPK and troponin level. Plan . Updated 09/02 I discontinued BiPAP, patient desaturates, increased flow rate to 40 Discussed with RT Discussed with RN, maintaining oral hygiene Updated 09/01 Continue BiPAP and Vapotherm As needed ice chips Dexamethasone DVT prophylaxis Patient is DNI. JULIETH TORRES MD Sep 02, 2021 09:25
[2021-09-02] MEDS: DEXAMETHASONE SOD PHOS 4 MG/ML VIAL IVP SCH (09:34)
[2021-09-02] MEDS: ENOXAPARIN 40 MG/0.4 ML SYRINGE. SQ SCH ×2 (09:34→22:15)
[2021-09-02 11:00] VITALS: BP 200/86
[2021-09-02] MEDS: LABETALOL 20 MG/4 ML DISP.SYRIN. IVP PRN (12:39)
--- NOTE | 2021-09-02 13:12 | NUR ---
SS following up with discharge planning. SS reviewed pt chart and discussed with pt RN. Pt is currently on Vapotherm and BIPAP at 100%. COVID19 positive. Pt on IV Zosyn and IV Decadron. Not ready. SS will continue to follow for discharge planning.
--- NOTE | 2021-09-02 13:57 | PDOC ---
[employer] PROGRESS NOTE Date of Service DOS: DATE: 09/02/21 TIME: 13:57 Chief Complaint Chief Complaint Acute hypoxic respiratory failure secondary to COVID-19 pneumonia VIDAL due to vasomotor nephropathy Mildly elevated troponin level suggestive of type II demand ischemia Morbid obesity History of stroke IV dexamethasone daily and vitamin supplements code status, partial, no vent IV Remdesivir if patient requires O2 supplementation beyond there baseline Pending CRP, D-dimer labs Titrate O2 supplementation to maintain O2 saturation greater than 92% Empiric IV antibiotics if patient has clinical presentation for bacterial pneumonia Lovenox for DVT prophylaxis Protonix while on steroids GI prophylaxis Cardiac diet DNR code Discussed with RN and SW Disposition inpatient management as above Surrogate decision maker is the History of Present Illness History of Present Illness 66-year-old female with a past medical history of stroke with left-sided hemiparesis, tobacco misuse and possible COPD who presents events with 2 days of cough, shortness of breath, generalized weakness and fatigue. Patient called EMS for the symptoms and she was saturating at 60% on room air and was placed on 4 L nasal cannula and improved to 94%. Patient is not vaccinated for influenza or Covid. also has similar symptoms. Denies fevers, abdominal pain, chest pain, nausea vomiting or diarrhea or dysuria or hematuria. Patient does not wear any oxygen at home. She quit smoking several years ago, but she denies any known history of pulmonary disease. She had a previous severe stroke with residual left hemiparesis, that is unchanged. She has residual speech difficulty dysarthria which is unchanged as well. She usually goes to [facility] her care. 08/28/2021 No acute events overnight. Patient seen and examined bedside. Patient appears comfortable on nonrebreathing mask and saturating 94% on 15 L. Continue with IV steroids and monitor closely. Appreciate pulmonology recommendations to continue with current care. And the patient request not to be intubated still. Patient's chart, labs, images were reviewed and discussed with RN 08/29/2021 No acute events overnight. Patient seen examined bedside. Saturating 82% on Vapotherm. Patient with worsening hypoxia. Patient's chart, labs, images were reviewed and discussed with RN 08/30/2021 No acute events overnight. Seen and examined bedside. Tolerating BiPAP at 93% 100% FiO2. Patient is DNI. No concerns from nursing. Patient's chart, labs, images were reviewed and discussed with RN 08/31/2021 Patient seen and examined bedside. Not short of breath while on BiPAP 100% FiO2 saturating 95%. Blood pressures uncontrolled. started on p.o. amlodipine 09/01, BP still up, start lisinopril, is NPo, will start iv fluid 09/02, examined, stable, still marked hypoxic, weak, doesnt like keeping BIPAP on, is no intubation for code status no Vitals/I&O Vitals/I&O: Vital Signs Date Time Temp Pulse Resp B/P (MAP) Pulse Ox O2 Delivery O2 Flow Rate FiO2 09/02/21 12:39 95 200/86 09/02/21 12:10 90 BiPAP/CPAP 09/02/21 11:00 97.8 30 30.0 97.8 I & O 09/01/21 09/01/21 09/02/21 15:00 23:00 07:00 Intake Total 0 ml 0 ml Output Total 350 ml 550 ml Balance -350 ml -550 ml Physical Exam General: Alert, Cooperative, severe distress, Other (confused, ) Heart: Regular rate Lungs: Other Abdomen: Normal bowel sounds Extremities: No clubbing Skin: No rashes Labs Labs: Laboratory Tests Test 09/01/21 17:16 09/01/21 21:12 09/02/21 03:50 09/02/21 07:27 Glucose (Fingerstick) 220 mg/dL (70-99) 206 mg/dL (70-99) 167 mg/dL (70-99) White Blood Count 11.9 x10^3/uL (4.0-11.0) Red Blood Count 4.30 x10^6/uL (3.50-5.40) Hemoglobin 11.2 g/dL (12.0-15.5) Hematocrit 35.1 % (36.0-47.0) Mean Corpuscular Volume 82 fL (79-100) Mean Corpuscular Hemoglobin 26 pg (25-35) Mean Corpuscular Hemoglobin Concent 32 g/dL (31-37) Red Cell Distribution Width 15.0 % (11.5-14.5) Platelet Count 290 x10^3/uL (140-400) Neutrophils (%) (Auto) 82 % (31-73) Lymphocytes (%) (Auto) 10 % (24-48) Monocytes (%) (Auto) 8 % (0-9) Eosinophils (%) (Auto) 0 % (0-3) Basophils (%) (Auto) 0 % (0-3) Neutrophils # (Auto) 9.8 x10^3/uL (1.8-7.7) Lymphocytes # (Auto) 1.2 x10^3/uL (1.0-4.8) Monocytes # (Auto) 0.9 x10^3/uL (0.0-1.1) Eosinophils # (Auto) 0.0 x10^3/uL (0.0-0.7) Basophils # (Auto) 0.0 x10^3/uL (0.0-0.2) Sodium Level 145 mmol/L (136-145) Potassium Level 3.7 mmol/L (3.5-5.1) Chloride Level 107 mmol/L (98-107) Carbon Dioxide Level 27 mmol/L (21-32) Anion Gap 11 (6-14) Blood Urea Nitrogen 27 mg/dL (7-20) Creatinine 1.0 mg/dL (0.6-1.0) Estimated GFR (Cockcroft-Gault) 67.5 BUN/Creatinine Ratio 27 (6-20) Glucose Level 171 mg/dL (70-99) Calcium Level 8.2 mg/dL (8.5-10.1) Total Bilirubin 1.2 mg/dL (0.2-1.0) Aspartate Amino Transf (AST/SGOT) 29 U/L (15-37) Alanine Aminotransferase (ALT/SGPT) 30 U/L (14-59) Alkaline Phosphatase 104 U/L (46-116) Total Protein 7.3 g/dL (6.4-8.2) Albumin 2.3 g/dL (3.4-5.0) Albumin/Globulin Ratio 0.5 (1.0-1.7) Test 09/02/21 11:47 Glucose (Fingerstick) 188 mg/dL (70-99) Assessment and Plan Assessmemt and Plan Problems Medical Problems: (1) COVID-19 Status: Acute (2) Pneumonia due to COVID-19 virus Status: Acute (3) Respiratory failure with hypoxia Status: Acute Comment Review of Relevant I have reviewed the following items allyn (where applicable) has been applied. Medications: Current Medications Medications (Trade) Dose Ordered Sig/Alex Route PRN Reason Start Time Stop Time Status Last Admin Dose Admin Insulin Human Lispro (HumaLOG) 0-9 UNITS TIDWMEALS SQ 09/01/21 17:00 09/01/21 17:20 Dextrose/Sodium Chloride 1,000 ml @ 100 mls/hr Q10H IV 09/01/21 14:00 09/02/21 03:26 Justifications for Admission Other Justification COVID-19 positive test (U07.1, COVID-19) with Acute Pneumonia (J12.89, Other viral pneumonia) (If respiratory failure or sepsis present, add as separate assessment) DORYS NORRIS MD Sep 02, 2021 13:57
[2021-09-02 15:00] VITALS: BP 188/95
[2021-09-02 19:59] VITALS: BP 176/95
[2021-09-02 22:39] VITALS: BP 188/100
[2021-09-03] MEDS: PIPERACILLIN/TAZOBACTAM 3.375 GM in IV NORMAL SALINE 50ML 50 ML IV SCH ×4 (00:27→17:42)
[2021-09-03 03:25] VITALS: BP 191/90
[2021-09-03] MEDS: STERILE WATER for RESP 2,000 ML BAG. INH PRN (05:29)
[2021-09-03 07:00] VITALS: BP 128/86
[2021-09-03] MEDS: PANTOPRAZOLE 40 MG TABLET.DR. PO SCH (07:30)
[2021-09-03] MEDS: INSULIN LISPRO 300 UNITS/3 ML VIAL. SQ SCH ×3 (08:00→17:43)
--- NOTE | 2021-09-03 08:37 | PDOC ---
PULMONARY PROGRESS NOTES DATE: 09/03/21 TIME: 08:37 Subjective about the same off bipap her sat drop Vitals Vital Signs Date Time Temp Pulse Resp B/P (MAP) Pulse Ox O2 Delivery O2 Flow Rate FiO2 09/03/21 07:44 92 BiPAP/CPAP 09/03/21 03:25 98.4 88 30 191/90 (123) 30.0 98.4 Comments Visual exam done due to COVID-19 pandemia. on bipap RRR No paradoxical breathing. No respiratory distress. Trace pitting edema Lungs: Other Labs Laboratory Tests Test 09/01/21 17:16 09/01/21 21:12 09/02/21 03:50 09/02/21 07:27 Glucose (Fingerstick) 220 mg/dL (70-99) 206 mg/dL (70-99) 167 mg/dL (70-99) White Blood Count 11.9 x10^3/uL (4.0-11.0) Red Blood Count 4.30 x10^6/uL (3.50-5.40) Hemoglobin 11.2 g/dL (12.0-15.5) Hematocrit 35.1 % (36.0-47.0) Mean Corpuscular Volume 82 fL (79-100) Mean Corpuscular Hemoglobin 26 pg (25-35) Mean Corpuscular Hemoglobin Concent 32 g/dL (31-37) Red Cell Distribution Width 15.0 % (11.5-14.5) Platelet Count 290 x10^3/uL (140-400) Neutrophils (%) (Auto) 82 % (31-73) Lymphocytes (%) (Auto) 10 % (24-48) Monocytes (%) (Auto) 8 % (0-9) Eosinophils (%) (Auto) 0 % (0-3) Basophils (%) (Auto) 0 % (0-3) Neutrophils # (Auto) 9.8 x10^3/uL (1.8-7.7) Lymphocytes # (Auto) 1.2 x10^3/uL (1.0-4.8) Monocytes # (Auto) 0.9 x10^3/uL (0.0-1.1) Eosinophils # (Auto) 0.0 x10^3/uL (0.0-0.7) Basophils # (Auto) 0.0 x10^3/uL (0.0-0.2) Sodium Level 145 mmol/L (136-145) Potassium Level 3.7 mmol/L (3.5-5.1) Chloride Level 107 mmol/L (98-107) Carbon Dioxide Level 27 mmol/L (21-32) Anion Gap 11 (6-14) Blood Urea Nitrogen 27 mg/dL (7-20) Creatinine 1.0 mg/dL (0.6-1.0) Estimated GFR (Cockcroft-Gault) 67.5 BUN/Creatinine Ratio 27 (6-20) Glucose Level 171 mg/dL (70-99) Calcium Level 8.2 mg/dL (8.5-10.1) Total Bilirubin 1.2 mg/dL (0.2-1.0) Aspartate Amino Transf (AST/SGOT) 29 U/L (15-37) Alanine Aminotransferase (ALT/SGPT) 30 U/L (14-59) Alkaline Phosphatase 104 U/L (46-116) Total Protein 7.3 g/dL (6.4-8.2) Albumin 2.3 g/dL (3.4-5.0) Albumin/Globulin Ratio 0.5 (1.0-1.7) Test 09/02/21 11:47 09/02/21 20:17 Glucose (Fingerstick) 188 mg/dL (70-99) 246 mg/dL (70-99) Laboratory Tests Test 09/02/21 11:47 09/02/21 20:17 Glucose (Fingerstick) 188 mg/dL (70-99) 246 mg/dL (70-99) Medications Active Scripts Medications Dose Route/Sig Max Daily Dose Days Date Category Vitamin D2 (Ergocalciferol (Vitamin D2)) 1,250 Mcg Capsule 1,250 Mcg PO WEEKLY 08/27/21 Reported Naproxen Cr (Naproxen Sodium) 500 Mg Tbmp.24hr 1 Tab PO BID PRN 30 08/27/21 Reported Gabapentin (Gabapentin) 300 Mg Capsule 300 Mg PO TID 08/27/21 Reported Triamcinolone Acetonide 80 Gm Oint...g. 1 Betty TP BID 08/27/21 Reported Atorvastatin Calcium 40 Mg Tablet 1 Tab PO DAILY 08/27/21 Reported Tizanidine Hcl 4 Mg Tablet 1 Tab PO BID 08/27/21 Reported Oxybutynin Chloride Er (Oxybutynin Chloride) 5 Mg Tab.er.24 1 Tab PO DAILY 08/27/21 Reported Impression . 1. Acute hypoxic respiratory failure secondary to COVID-19 pneumonia/acute lung injury and early ARDS. 2. Abnormal chest x-ray consistent with viral pneumonia. 3. 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 4. History of tobaccoism. Quit 2 years ago. 5. Acute kidney injury versus chronic kidney disease. 6. Increased CPK and troponin level. Plan . 09/03 d/w RT I discontinued BiPAP, patient desaturates, increased flow rate to 40 agressive pulm and oral hygeine Discussed with RN, maintaining oral hygiene DVT proph JULIETH TORRES MD Sep 03, 2021 08:37
[2021-09-03] MEDS: THIAMINE 100 MG TABLET. PO SCH (09:00)
[2021-09-03] MEDS: ZINC SULFATE 220 MG CAPSULE. PO SCH (09:00)
[2021-09-03] MEDS: NYSTATIN TOPICAL POWDER 15GM BOTTLE. TP SCH ×2 (09:00→21:00)
[2021-09-03] MEDS: ASCORBIC ACID 1,000 MG TABLET PO SCH ×3 (09:00→20:30)
[2021-09-03] MEDS: GABAPENTIN 300 MG CAPSULE. PO SCH ×3 (09:00→20:29)
[2021-09-03] MEDS: LISINOPRIL 20 MG TABLET PO SCH (09:00)
--- NOTE | 2021-09-03 09:57 | PDOC ---
[employer] PROGRESS NOTE Date of Service DOS: DATE: 09/03/21 TIME: 09:56 Chief Complaint Chief Complaint Acute hypoxic respiratory failure secondary to COVID-19 pneumonia VIDAL due to vasomotor nephropathy Mildly elevated troponin level suggestive of type II demand ischemia Morbid obesity History of stroke IV dexamethasone daily and vitamin supplements code status, partial, no vent IV Remdesivir if patient requires O2 supplementation beyond there baseline Pending CRP, D-dimer labs Titrate O2 supplementation to maintain O2 saturation greater than 92% Empiric IV antibiotics if patient has clinical presentation for bacterial pneumonia Lovenox for DVT prophylaxis Protonix while on steroids GI prophylaxis Cardiac diet DNR code Discussed with RN and SW Disposition inpatient management as above Surrogate decision maker is the History of Present Illness History of Present Illness 66-year-old female with a past medical history of stroke with left-sided hemiparesis, tobacco misuse and possible COPD who presents events with 2 days of cough, shortness of breath, generalized weakness and fatigue. Patient called EMS for the symptoms and she was saturating at 60% on room air and was placed on 4 L nasal cannula and improved to 94%. Patient is not vaccinated for influenza or Covid. also has similar symptoms. Denies fevers, abdominal pain, chest pain, nausea vomiting or diarrhea or dysuria or hematuria. Patient does not wear any oxygen at home. She quit smoking several years ago, but she denies any known history of pulmonary disease. She had a previous severe stroke with residual left hemiparesis, that is unchanged. She has residual speech difficulty dysarthria which is unchanged as well. She usually goes to [facility] for her care. 08/28/2021 No acute events overnight. Patient seen and examined bedside. Patient appears comfortable on nonrebreathing mask and saturating 94% on 15 L. Continue with IV steroids and monitor closely. Appreciate pulmonology recommendations to continue with current care. And the patient request not to be intubated still. Patient's chart, labs, images were reviewed and discussed with RN 08/29/2021 No acute events overnight. Patient seen examined bedside. Saturating 82% on Vapotherm. Patient with worsening hypoxia. Patient's chart, labs, images were reviewed and discussed with RN 08/30/2021 No acute events overnight. Seen and examined bedside. Tolerating BiPAP at 93% 100% FiO2. Patient is DNI. No concerns from nursing. Patient's chart, labs, images were reviewed and discussed with RN 08/31/2021 Patient seen and examined bedside. Not short of breath while on BiPAP 100% FiO2 saturating 95%. Blood pressures uncontrolled. started on p.o. amlodipine 09/01, BP still up, start lisinopril, is NPo, will start iv fluid 09/02, examined, stable, still marked hypoxic, weak, doesnt like keeping BIPAP on, is no intubation for code status no Vitals/I&O Vitals/I&O: Vital Signs Date Time Temp Pulse Resp B/P (MAP) Pulse Ox O2 Delivery O2 Flow Rate FiO2 09/03/21 07:44 92 BiPAP/CPAP 09/03/21 07:00 97.7 90 31 128/86 (100) 30.0 97.7 I & O 09/02/21 09/02/21 09/03/21 15:00 23:00 07:00 Intake Total 0 ml 0 ml 0 ml Output Total 775 ml Balance 0 ml 0 ml -775 ml Physical Exam General: Alert, Cooperative, severe distress, Other (confused, ) Heart: Regular rate Lungs: Crackles, Other Abdomen: Normal bowel sounds Extremities: No clubbing Skin: No rashes Labs Labs: Laboratory Tests Test 09/02/21 11:47 09/02/21 20:17 09/03/21 08:43 Glucose (Fingerstick) 188 mg/dL (70-99) 246 mg/dL (70-99) 152 mg/dL (70-99) Assessment and Plan Assessmemt and Plan Problems Medical Problems: (1) COVID-19 Status: Acute (2) Pneumonia due to COVID-19 virus Status: Acute (3) Respiratory failure with hypoxia Status: Acute Comment Review of Relevant I have reviewed the following items allyn (where applicable) has been applied. Justifications for Admission Other Justification COVID-19 positive test (U07.1, COVID-19) with Acute Pneumonia (J12.89, Other viral pneumonia) (If respiratory failure or sepsis present, add as separate assessment) DORYS NORRIS MD Sep 03, 2021 09:57
[2021-09-03] MEDS: DEXAMETHASONE SOD PHOS 4 MG/ML VIAL IVP SCH (10:16)
[2021-09-03] MEDS: ENOXAPARIN 40 MG/0.4 ML SYRINGE. SQ SCH ×2 (10:19→22:06)
[2021-09-03 11:00] VITALS: BP 147/99
[2021-09-03] MEDS: IV DEXTROSE 5 %-0.45 % NACL 1,000 ML IV SCH ×2 (13:44→16:00)
[2021-09-03 15:00] VITALS: BP 194/106
[2021-09-03] MEDS: hydrALAZINE 20 MG/ML VIAL. IVP PRN (15:24)
[2021-09-03 19:10] VITALS: BP 191/92
[2021-09-03] MEDS: MORPHINE SULFATE 2 MG/ML INJ. IV PRN (20:39)
[2021-09-03 23:23] VITALS: BP 151/80
[2021-09-04] VITALS (9 sets, daily range): BP systolic 125–196; BP diastolic 71–89
[2021-09-04] MEDS: IV DEXTROSE 5 %-0.45 % NACL 1,000 ML IV SCH ×3 (01:43→23:55)
[2021-09-04] MEDS: PIPERACILLIN/TAZOBACTAM 3.375 GM in IV NORMAL SALINE 50ML 50 ML IV SCH ×5 (05:48→23:55)
[2021-09-04] MEDS: PANTOPRAZOLE 40 MG TABLET.DR. PO SCH (07:30)
[2021-09-04] MEDS: INSULIN LISPRO 300 UNITS/3 ML VIAL. SQ SCH ×3 (08:00→17:23)
[2021-09-04] MEDS: DEXAMETHASONE SOD PHOS 4 MG/ML VIAL IVP SCH (08:01)
[2021-09-04] MEDS: hydrALAZINE 20 MG/ML VIAL. IVP PRN ×2 (08:03→17:37)
[2021-09-04] MEDS: GABAPENTIN 300 MG CAPSULE. PO SCH ×3 (08:05→20:35)
[2021-09-04] MEDS: ZINC SULFATE 220 MG CAPSULE. PO SCH (08:05)
[2021-09-04] MEDS: THIAMINE 100 MG TABLET. PO SCH (08:06)
[2021-09-04] MEDS: ASCORBIC ACID 1,000 MG TABLET PO SCH ×3 (08:06→20:35)
[2021-09-04] MEDS: LISINOPRIL 20 MG TABLET PO SCH (08:06)
[2021-09-04] MEDS: ENOXAPARIN 40 MG/0.4 ML SYRINGE. SQ SCH ×2 (08:07→21:27)
--- NOTE | 2021-09-04 08:43 | PDOC ---
PULMONARY PROGRESS NOTES DATE: 09/04/21 TIME: 08:43 Subjective about the same off bipap her sat drop Vitals Vital Signs Date Time Temp Pulse Resp B/P (MAP) Pulse Ox O2 Delivery O2 Flow Rate FiO2 09/04/21 08:03 102 188/87 09/04/21 07:33 93 BiPAP/CPAP 09/04/21 07:00 97.1 25 40.0 97.1 Comments Visual exam done due to COVID-19 pandemia. on bipap RRR No paradoxical breathing. No respiratory distress. Trace pitting edema Lungs: Crackles, Other Labs Laboratory Tests Test 09/02/21 11:47 09/02/21 20:17 09/03/21 08:43 09/03/21 12:43 Glucose (Fingerstick) 188 mg/dL (70-99) 246 mg/dL (70-99) 152 mg/dL (70-99) 176 mg/dL (70-99) Test 09/03/21 16:23 09/03/21 20:28 09/04/21 07:48 Glucose (Fingerstick) 232 mg/dL (70-99) 194 mg/dL (70-99) 129 mg/dL (70-99) Laboratory Tests Test 09/03/21 12:43 09/03/21 16:23 09/03/21 20:28 09/04/21 07:48 Glucose (Fingerstick) 176 mg/dL (70-99) 232 mg/dL (70-99) 194 mg/dL (70-99) 129 mg/dL (70-99) Medications Active Scripts Medications Dose Route/Sig Max Daily Dose Days Date Category Vitamin D2 (Ergocalciferol (Vitamin D2)) 1,250 Mcg Capsule 1,250 Mcg PO WEEKLY 08/27/21 Reported Naproxen Cr (Naproxen Sodium) 500 Mg Tbmp.24hr 1 Tab PO BID PRN 30 08/27/21 Reported Gabapentin (Gabapentin) 300 Mg Capsule 300 Mg PO TID 08/27/21 Reported Triamcinolone Acetonide 80 Gm Oint...g. 1 Betty TP BID 08/27/21 Reported Atorvastatin Calcium 40 Mg Tablet 1 Tab PO DAILY 08/27/21 Reported Tizanidine Hcl 4 Mg Tablet 1 Tab PO BID 08/27/21 Reported Oxybutynin Chloride Er (Oxybutynin Chloride) 5 Mg Tab.er.24 1 Tab PO DAILY 08/27/21 Reported Impression . 1. Acute hypoxic respiratory failure secondary to COVID-19 pneumonia/acute lung injury and early ARDS. 2. Abnormal chest x-ray consistent with viral pneumonia. 3. 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 4. History of tobaccoism. Quit 2 years ago. 5. Acute kidney injury versus chronic kidney disease. 6. Increased CPK and troponin level. Plan . 09/03 d/w RT I discontinued BiPAP, patient desaturates, increased flow rate to 40 agressive pulm and oral hygeine Discussed with RN, maintaining oral hygiene DVT proph JULIETH TORRES MD Sep 04, 2021 08:43
[2021-09-04] MEDS: NYSTATIN TOPICAL POWDER 15GM BOTTLE. TP SCH ×2 (09:00→20:36)
--- NOTE | 2021-09-04 11:40 | NUR ---
this morning patient called several times on the call light. she is wanting to eat but she is NPO. Did oral care with mouth swabs.
--- NOTE | 2021-09-04 11:47 | NUR ---
12:00 blood sugar-192. non-administered sliding scale insulin. Patient is NPO
--- NOTE | 2021-09-04 16:41 | PDOC ---
[employer] PROGRESS NOTE Date of Service DOS: DATE: 09/04/21 TIME: 16:40 Chief Complaint Chief Complaint Acute hypoxic respiratory failure secondary to COVID-19 pneumonia VIDAL due to vasomotor nephropathy Mildly elevated troponin level suggestive of type II demand ischemia Morbid obesity History of stroke IV dexamethasone daily and vitamin supplements code status, partial, no vent IV Remdesivir if patient requires O2 supplementation beyond there baseline Pending CRP, D-dimer labs Titrate O2 supplementation to maintain O2 saturation greater than 92% Empiric IV antibiotics if patient has clinical presentation for bacterial pneumonia Lovenox for DVT prophylaxis Protonix while on steroids GI prophylaxis Cardiac diet DNR code Discussed with RN and SW Disposition inpatient management as above Surrogate decision maker is the History of Present Illness History of Present Illness 66-year-old female with a past medical history of stroke with left-sided hemiparesis, tobacco misuse and possible COPD who presents events with 2 days of cough, shortness of breath, generalized weakness and fatigue. Patient called EMS for the symptoms and she was saturating at 60% on room air and was placed on 4 L nasal cannula and improved to 94%. Patient is not vaccinated for influenza or Covid. also has similar symptoms. Denies fevers, abdominal pain, chest pain, nausea vomiting or diarrhea or dysuria or hematuria. Patient does not wear any oxygen at home. She quit smoking several years ago, but she denies any known history of pulmonary disease. She had a previous severe stroke with residual left hemiparesis, that is unchanged. She has residual speech difficulty dysarthria which is unchanged as well. She usually goes to [facility] for her care. 09/03, still marked hypoxic, wants to eat, sats drop markedly when trying, limited by RN still marked hypoxic, weak, Vitals/I&O Vitals/I&O: Vital Signs Date Time Temp Pulse Resp B/P (MAP) Pulse Ox O2 Delivery O2 Flow Rate FiO2 09/04/21 15:58 107 166/78 (107) 09/04/21 15:46 94 BiPAP/CPAP 09/04/21 15:00 98.3 25 40.0 98.3 I & O 09/03/21 09/03/21 09/04/21 15:00 23:00 07:00 Intake Total 40 ml 0 ml 0 ml Output Total 1400 ml 350 ml Balance 40 ml -1400 ml -350 ml Physical Exam General: Alert, Cooperative, severe distress, Other (confused, ) Heart: Regular rate Lungs: Crackles, Other Abdomen: Normal bowel sounds Extremities: No clubbing Skin: No rashes Labs Labs: Laboratory Tests Test 09/03/21 20:28 09/04/21 07:48 09/04/21 11:32 Glucose (Fingerstick) 194 mg/dL (70-99) 129 mg/dL (70-99) 192 mg/dL (70-99) Assessment and Plan Assessmemt and Plan Problems Medical Problems: (1) COVID-19 Status: Acute (2) Pneumonia due to COVID-19 virus Status: Acute (3) Respiratory failure with hypoxia Status: Acute Comment Review of Relevant I have reviewed the following items allyn (where applicable) has been applied. Medications: Current Medications Medications (Trade) Dose Ordered Sig/Alex Route PRN Reason Start Time Stop Time Status Last Admin Dose Admin Morphine Sulfate (Morphine Sulfate) 2 mg PRN Q2HR PRN IV PAIN 09/03/21 20:30 09/03/21 20:39 Justifications for Admission Other Justification COVID-19 positive test (U07.1, COVID-19) with Acute Pneumonia (J12.89, Other viral pneumonia) (If respiratory failure or sepsis present, add as separate assessment) DORYS NORRIS MD Sep 04, 2021 16:41
[2021-09-05] MEDS: MORPHINE SULFATE 2 MG/ML INJ. IV PRN ×2 (01:46→11:59)
[2021-09-05 02:03] VITALS: BP 169/80
[2021-09-05] MEDS: PIPERACILLIN/TAZOBACTAM 3.375 GM in IV NORMAL SALINE 50ML 50 ML IV SCH ×3 (06:12→17:40)
[2021-09-05] MEDS: PANTOPRAZOLE 40 MG TABLET.DR. PO SCH (07:30)
[2021-09-05 07:58] VITALS: BP 135/89
[2021-09-05] MEDS: INSULIN LISPRO 300 UNITS/3 ML VIAL. SQ SCH ×3 (08:00→17:00)
[2021-09-05] MEDS: STERILE WATER for RESP 2,000 ML BAG. INH PRN (08:56)
[2021-09-05] MEDS: NYSTATIN TOPICAL POWDER 15GM BOTTLE. TP SCH ×2 (09:00→21:00)
[2021-09-05] MEDS: ZINC SULFATE 220 MG CAPSULE. PO SCH (09:00)
[2021-09-05] MEDS: ASCORBIC ACID 1,000 MG TABLET PO SCH ×3 (09:00→21:00)
[2021-09-05] MEDS: GABAPENTIN 300 MG CAPSULE. PO SCH ×3 (09:00→21:00)
[2021-09-05] MEDS: LISINOPRIL 20 MG TABLET PO SCH (09:00)
[2021-09-05] MEDS: THIAMINE 100 MG TABLET. PO SCH (09:00)
[2021-09-05] MEDS: ENOXAPARIN 40 MG/0.4 ML SYRINGE. SQ SCH ×2 (09:18→21:28)
[2021-09-05] MEDS: DEXAMETHASONE SOD PHOS 4 MG/ML VIAL IVP SCH (09:18)
[2021-09-05] MEDS: IV DEXTROSE 5 %-0.45 % NACL 1,000 ML IV SCH ×2 (09:19→17:38)
[2021-09-05 10:47] VITALS: BP 140/77
--- NOTE | 2021-09-05 12:16 | PDOC ---
PULMONARY PROGRESS NOTES DATE: 09/05/21 TIME: 12:14 Subjective Patient remains severely ill. Currently on 100% FiO2 via BiPAP as well as 100% FiO2 with Vapotherm. Vitals Vital Signs Date Time Temp Pulse Resp B/P (MAP) Pulse Ox O2 Delivery O2 Flow Rate FiO2 09/05/21 11:59 vapotherm and bipap 40.0 09/05/21 11:46 98 09/05/21 10:47 97.9 108 28 140/77 (98) 97.9 Comments Visual exam done due to COVID-19 pandemia. on bipap RRR No paradoxical breathing. No respiratory distress. Trace pitting edema Labs Laboratory Tests Test 09/03/21 12:43 09/03/21 16:23 09/03/21 20:28 09/04/21 07:48 Glucose (Fingerstick) 176 mg/dL (70-99) 232 mg/dL (70-99) 194 mg/dL (70-99) 129 mg/dL (70-99) Test 09/04/21 11:32 09/04/21 17:01 09/04/21 19:48 09/05/21 08:04 Glucose (Fingerstick) 192 mg/dL (70-99) 202 mg/dL (70-99) 169 mg/dL (70-99) 138 mg/dL (70-99) Test 09/05/21 11:38 Glucose (Fingerstick) 188 mg/dL (70-99) Laboratory Tests Test 09/04/21 17:01 09/04/21 19:48 09/05/21 08:04 09/05/21 11:38 Glucose (Fingerstick) 202 mg/dL (70-99) 169 mg/dL (70-99) 138 mg/dL (70-99) 188 mg/dL (70-99) Medications Active Scripts Medications Dose Route/Sig Max Daily Dose Days Date Category Vitamin D2 (Ergocalciferol (Vitamin D2)) 1,250 Mcg Capsule 1,250 Mcg PO WEEKLY 08/27/21 Reported Naproxen Cr (Naproxen Sodium) 500 Mg Tbmp.24hr 1 Tab PO BID PRN 30 08/27/21 Reported Gabapentin (Gabapentin) 300 Mg Capsule 300 Mg PO TID 08/27/21 Reported Triamcinolone Acetonide 80 Gm Oint...g. 1 Betty TP BID 1/5/22 Reported Atorvastatin Calcium 40 Mg Tablet 1 Tab PO DAILY 08/27/21 Reported Tizanidine Hcl 4 Mg Tablet 1 Tab PO BID 08/27/21 Reported Oxybutynin Chloride Er (Oxybutynin Chloride) 5 Mg Tab.er.24 1 Tab PO DAILY 08/27/21 Reported Impression . 1. Acute hypoxic respiratory failure secondary to COVID-19 pneumonia/acute lung injury and early ARDS. 2. Abnormal chest x-ray consistent with viral pneumonia. 3. 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 4. History of tobaccoism. Quit 2 years ago. 5. Acute kidney injury versus chronic kidney disease. 6. Increased CPK and troponin level. Plan . Patient remains critically ill with extremely poor prognosis. Currently on 100% FiO2 via Vapotherm and BiPAP. I have discussed with RN. Would recommend as needed benzodiazepine for anxiety. Continue supportive care. Less likely to survive. ADIEL CHAIREZ MD Sep 05, 2021 12:16
[2021-09-05 14:09] VITALS: BP 139/71
--- NOTE | 2021-09-05 14:34 | PDOC ---
[employer] PROGRESS NOTE Date of Service DOS: DATE: 09/05/21 TIME: 14:33 Chief Complaint Chief Complaint Acute hypoxic respiratory failure secondary to COVID-19 pneumonia VIDAL due to vasomotor nephropathy Mildly elevated troponin level suggestive of type II demand ischemia Morbid obesity History of stroke History of Present Illness History of Present Illness 66-year-old female with a past medical history of stroke with left-sided hemiparesis, tobacco misuse and possible COPD who presents events with 2 days of cough, shortness of breath, generalized weakness and fatigue. Patient called EMS for the symptoms and she was saturating at 60% on room air and was placed on 4 L nasal cannula and improved to 94%. Patient is not vaccinated for influenza or Covid. also has similar symptoms. Denies fevers, abdominal pain, chest pain, nausea vomiting or diarrhea or dysuria or hematuria. Patient does not wear any oxygen at home. She quit smoking several years ago, but she denies any known history of pulmonary disease. She had a previous severe stroke with residual left hemiparesis, that is unchanged. She has residual speech difficulty dysarthria which is unchanged as well. She usually goes to [facility] for her care. Vitals/I&O Vitals/I&O: Vital Signs Date Time Temp Pulse Resp B/P (MAP) Pulse Ox O2 Delivery O2 Flow Rate FiO2 09/05/21 14:09 98.8 104 24 139/71 (93) 93 vaportherm 40.0 98.8 I & O 09/04/21 09/04/21 09/05/21 15:00 23:00 07:00 Intake Total 50 ml 0 ml Output Total 500 ml 300 ml Balance 50 ml -500 ml -300 ml Physical Exam General: Alert, Cooperative, severe distress, Other (confused, ) Heart: Regular rate Abdomen: Normal bowel sounds Extremities: No clubbing Skin: No rashes Labs Labs: Laboratory Tests Test 09/04/21 17:01 09/04/21 19:48 09/05/21 08:04 09/05/21 11:38 Glucose (Fingerstick) 202 mg/dL (70-99) 169 mg/dL (70-99) 138 mg/dL (70-99) 188 mg/dL (70-99) Assessment and Plan Assessmemt and Plan Problems Medical Problems: (1) COVID-19 Status: Acute (2) Pneumonia due to COVID-19 virus Status: Acute (3) Respiratory failure with hypoxia Status: Acute Comment Review of Relevant I have reviewed the following items allyn (where applicable) has been applied. Justifications for Admission Other Justification COVID-19 positive test (U07.1, COVID-19) with Acute Pneumonia (J12.89, Other viral pneumonia) (If respiratory failure or sepsis present, add as separate assessment) DORYS NORRIS MD Sep 05, 2021 14:34
--- NOTE | 2021-09-05 17:38 | NUR ---
pt has full bag of fluids in room, no need for another new bag at this time
[2021-09-05 19:10] VITALS: BP 166/84
[2021-09-05 23:05] VITALS: BP 178/85
[2021-09-06] MEDS: PIPERACILLIN/TAZOBACTAM 3.375 GM in IV NORMAL SALINE 50ML 50 ML IV SCH ×5 (00:04→23:52)
[2021-09-06] MEDS: MORPHINE SULFATE 2 MG/ML INJ. IV PRN ×4 (00:05→16:41)
[2021-09-06 03:30] VITALS: BP 156/92
[2021-09-06] MEDS: IV DEXTROSE 5 %-0.45 % NACL 1,000 ML IV SCH ×3 (05:24→23:53)
[2021-09-06 07:00] VITALS: BP 178/83
--- NOTE | 2021-09-06 07:50 | PDOC ---
PULMONARY PROGRESS NOTES DATE: 09/06/21 TIME: 07:48 Subjective Patient remains severely ill. Currently on 100% FiO2 via BiPAP and 100% FiO2 with Vapotherm. Vitals Vital Signs Date Time Temp Pulse Resp B/P (MAP) Pulse Ox O2 Delivery O2 Flow Rate FiO2 09/06/21 07:37 84 BiPAP/CPAP 09/06/21 03:30 98.1 106 30 156/92 (113) 40.0 98.1 Comments Visual exam done due to COVID-19 pandemia. on bipap no distress RRR no accessory muscle use Trace pitting edema Labs Laboratory Tests Test 09/04/21 11:32 09/04/21 17:01 09/04/21 19:48 09/05/21 08:04 Glucose (Fingerstick) 192 mg/dL (70-99) 202 mg/dL (70-99) 169 mg/dL (70-99) 138 mg/dL (70-99) Test 09/05/21 11:38 09/05/21 18:22 09/05/21 20:47 09/06/21 07:47 Glucose (Fingerstick) 188 mg/dL (70-99) 158 mg/dL (70-99) 152 mg/dL (70-99) 146 mg/dL (70-99) Laboratory Tests Test 09/05/21 08:04 09/05/21 11:38 09/05/21 18:22 09/05/21 20:47 Glucose (Fingerstick) 138 mg/dL (70-99) 188 mg/dL (70-99) 158 mg/dL (70-99) 152 mg/dL (70-99) Test 09/06/21 07:47 Glucose (Fingerstick) 146 mg/dL (70-99) Medications Active Scripts Medications Dose Route/Sig Max Daily Dose Days Date Category Vitamin D2 (Ergocalciferol (Vitamin D2)) 1,250 Mcg Capsule 1,250 Mcg PO WEEKLY 08/27/21 Reported Naproxen Cr (Naproxen Sodium) 500 Mg Tbmp.24hr 1 Tab PO BID PRN 30 08/27/21 Reported Gabapentin (Gabapentin) 300 Mg Capsule 300 Mg PO TID 08/27/21 Reported Triamcinolone Acetonide 80 Gm Oint...g. 1 Betty TP BID 08/27/21 Reported Atorvastatin Calcium 40 Mg Tablet 1 Tab PO DAILY 08/27/21 Reported Tizanidine Hcl 4 Mg Tablet 1 Tab PO BID 08/27/21 Reported Oxybutynin Chloride Er (Oxybutynin Chloride) 5 Mg Tab.er.24 1 Tab PO DAILY 08/27/21 Reported Impression . 1. Acute hypoxic respiratory failure secondary to COVID-19 pneumonia/acute lung injury and early ARDS. 2. Abnormal chest x-ray consistent with viral pneumonia. 3. 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 4. History of tobaccoism. Quit 2 years ago. 5. Acute kidney injury versus chronic kidney disease. 6. Increased CPK and troponin level. Plan . prognosis poor 02 titration Currently on 100% FiO2 via Vapotherm and BiPAP. as needed benzodiazepine for anxiety. DNR Continue supportive care. Less likely to survive. I have discussed with JEANNETTE. KADIE MADDOX MD Sep 06, 2021 07:50
[2021-09-06] MEDS: INSULIN LISPRO 300 UNITS/3 ML VIAL. SQ SCH ×3 (08:00→17:00)
[2021-09-06] MEDS: DEXAMETHASONE SOD PHOS 4 MG/ML VIAL IVP SCH (08:46)
[2021-09-06] MEDS: PANTOPRAZOLE IV PUSH 40 MG VIAL. IVP SCH (08:46)
[2021-09-06] MEDS: ENOXAPARIN 40 MG/0.4 ML SYRINGE. SQ SCH ×2 (08:46→21:12)
[2021-09-06] MEDS: ASCORBIC ACID 1,000 MG TABLET PO SCH ×3 (09:00→21:00)
[2021-09-06] MEDS: ZINC SULFATE 220 MG CAPSULE. PO SCH (09:00)
[2021-09-06] MEDS: GABAPENTIN 300 MG CAPSULE. PO SCH ×3 (09:00→21:00)
[2021-09-06] MEDS: THIAMINE 100 MG TABLET. PO SCH (09:00)
[2021-09-06] MEDS: LISINOPRIL 20 MG TABLET PO SCH (09:00)
[2021-09-06 11:00] VITALS: BP 195/82
[2021-09-06] MEDS: hydrALAZINE 20 MG/ML VIAL. IVP PRN (13:10)
--- NOTE | 2021-09-06 14:02 | PDOC ---
[employer] PROGRESS NOTE Date of Service DOS: DATE: 09/06/21 TIME: 14:01 Chief Complaint Chief Complaint Acute hypoxic respiratory failure secondary to COVID-19 pneumonia VIDAL due to vasomotor nephropathy Mildly elevated troponin level suggestive of type II demand ischemia Morbid obesity History of stroke History of Present Illness History of Present Illness 66-year-old female with a past medical history of stroke with left-sided hemiparesis, tobacco misuse and possible COPD who presents events with 2 days of cough, shortness of breath, generalized weakness and fatigue. Patient called EMS for the symptoms and she was saturating at 60% on room air and was placed on 4 L nasal cannula and improved to 94%. Patient is not vaccinated for influenza or Covid. also has similar symptoms. Denies fevers, abdominal pain, chest pain, nausea vomiting or diarrhea or dysuria or hematuria. Patient does not wear any oxygen at home. She quit smoking several years ago, but she denies any known history of pulmonary disease. She had a previous severe stroke with residual left hemiparesis, that is unchanged. She has residual speech difficulty dysarthria which is unchanged as well. She usually goes to [facility] for her care. 09/06, weaknes, confusion, on bipap, cont current Vitals/I&O Vitals/I&O: Vital Signs Date Time Temp Pulse Resp B/P (MAP) Pulse Ox O2 Delivery O2 Flow Rate FiO2 09/06/21 13:10 116 195/82 09/06/21 11:41 51 77 BiPAP/CPAP 30.0 09/06/21 11:00 99.2 99.2 I & O 09/05/21 09/05/21 09/06/21 15:00 23:00 07:00 Intake Total 1050 ml 50 ml 1200 ml Output Total 350 ml 250 ml Balance 1050 ml -300 ml 950 ml Physical Exam General: Alert, Cooperative, severe distress, Other (confused, ) Heart: Regular rate Abdomen: Normal bowel sounds Extremities: No clubbing Skin: No rashes Labs Labs: Laboratory Tests Test 09/05/21 18:22 09/05/21 20:47 09/06/21 07:47 09/06/21 11:13 Glucose (Fingerstick) 158 mg/dL (70-99) 152 mg/dL (70-99) 146 mg/dL (70-99) 175 mg/dL (70-99) Assessment and Plan Assessmemt and Plan Problems Medical Problems: (1) COVID-19 Status: Acute (2) Pneumonia due to COVID-19 virus Status: Acute (3) Respiratory failure with hypoxia Status: Acute Comment Review of Relevant I have reviewed the following items allyn (where applicable) has been applied. Medications: Current Medications Medications (Trade) Dose Ordered Sig/Alex Route PRN Reason Start Time Stop Time Status Last Admin Dose Admin Pantoprazole Sodium (PROTONIX VIAL for IV PUSH) 40 mg DAILYAC IVP 09/06/21 08:00 09/06/21 08:46 Justifications for Admission Other Justification COVID-19 positive test (U07.1, COVID-19) with Acute Pneumonia (J12.89, Other viral pneumonia) (If respiratory failure or sepsis present, add as separate assessment) DORYS NORRIS MD Sep 06, 2021 14:02
[2021-09-06 14:33] VITALS: BP 136/66
[2021-09-06] MEDS: NYSTATIN TOPICAL POWDER 15GM BOTTLE. TP SCH ×2 (15:36→21:00)
[2021-09-06 19:59] VITALS: BP 170/77
[2021-09-06 23:38] VITALS: BP 156/109
[2021-09-07 02:07] VITALS: BP 182/82
[2021-09-07] MEDS: PIPERACILLIN/TAZOBACTAM 3.375 GM in IV NORMAL SALINE 50ML 50 ML IV SCH ×3 (05:42→18:24)
[2021-09-07 07:00] VITALS: BP 148/76
--- NOTE | 2021-09-07 07:46 | PDOC ---
PULMONARY PROGRESS NOTES DATE: 09/07/21 TIME: 07:45 Subjective Patient remains severely ill. Currently on 100% FiO2 via BiPAP and 100% FiO2 with Vapotherm. Vitals Vital Signs Date Time Temp Pulse Resp B/P (MAP) Pulse Ox O2 Delivery O2 Flow Rate FiO2 09/07/21 07:21 77 BiPAP/CPAP 09/07/21 02:07 98.2 106 42 182/82 (115) 40.0 98.2 Comments Visual exam done due to COVID-19 pandemia. on bipap no distress RRR no accessory muscle use Trace pitting edema Labs Laboratory Tests Test 09/05/21 08:04 09/05/21 11:38 09/05/21 18:22 09/05/21 20:47 Glucose (Fingerstick) 138 mg/dL (70-99) 188 mg/dL (70-99) 158 mg/dL (70-99) 152 mg/dL (70-99) Test 09/06/21 07:47 09/06/21 11:13 09/06/21 16:37 09/06/21 20:47 Glucose (Fingerstick) 146 mg/dL (70-99) 175 mg/dL (70-99) 225 mg/dL (70-99) 199 mg/dL (70-99) Laboratory Tests Test 09/06/21 07:47 09/06/21 11:13 09/06/21 16:37 09/06/21 20:47 Glucose (Fingerstick) 146 mg/dL (70-99) 175 mg/dL (70-99) 225 mg/dL (70-99) 199 mg/dL (70-99) Medications Active Scripts Medications Dose Route/Sig Max Daily Dose Days Date Category Vitamin D2 (Ergocalciferol (Vitamin D2)) 1,250 Mcg Capsule 1,250 Mcg PO WEEKLY 08/27/21 Reported Naproxen Cr (Naproxen Sodium) 500 Mg Tbmp.24hr 1 Tab PO BID PRN 30 08/27/21 Reported Gabapentin (Gabapentin) 300 Mg Capsule 300 Mg PO TID 08/27/21 Reported Triamcinolone Acetonide 80 Gm Oint...g. 1 Betty TP BID 08/27/21 Reported Atorvastatin Calcium 40 Mg Tablet 1 Tab PO DAILY 08/27/21 Reported Tizanidine Hcl 4 Mg Tablet 1 Tab PO BID 08/27/21 Reported Oxybutynin Chloride Er (Oxybutynin Chloride) 5 Mg Tab.er.24 1 Tab PO DAILY 08/27/21 Reported Impression . 1. Acute hypoxic respiratory failure secondary to COVID-19 pneumonia/acute lung injury and early ARDS. 2. Abnormal chest x-ray consistent with viral pneumonia. 3. 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 4. History of tobaccoism. Quit 2 years ago. 5. Acute kidney injury versus chronic kidney disease. 6. Increased CPK and troponin level. Plan . prognosis poor 02 titration to keep sat 90% Currently on 100% FiO2 via Vapotherm and BiPAP. elevate hob as needed benzodiazepine for anxiety. DNR Continue supportive care. Less likely to survive. discussed with RN. KADIE MADDOX MD Sep 07, 2021 07:46
[2021-09-07] MEDS: INSULIN LISPRO 300 UNITS/3 ML VIAL. SQ SCH ×3 (08:00→18:29)
[2021-09-07] MEDS: LISINOPRIL 20 MG TABLET PO SCH (09:00)
[2021-09-07] MEDS: THIAMINE 100 MG TABLET. PO SCH (09:00)
[2021-09-07] MEDS: GABAPENTIN 300 MG CAPSULE. PO SCH ×3 (09:00→20:00)
[2021-09-07] MEDS: ASCORBIC ACID 1,000 MG TABLET PO SCH ×3 (09:00→20:01)
[2021-09-07] MEDS: ZINC SULFATE 220 MG CAPSULE. PO SCH (09:00)
[2021-09-07] MEDS: ENOXAPARIN 40 MG/0.4 ML SYRINGE. SQ SCH ×2 (09:17→21:03)
[2021-09-07] MEDS: PANTOPRAZOLE IV PUSH 40 MG VIAL. IVP SCH (09:18)
[2021-09-07] MEDS: DEXAMETHASONE SOD PHOS 4 MG/ML VIAL IVP SCH (09:18)
[2021-09-07] MEDS: NYSTATIN TOPICAL POWDER 15GM BOTTLE. TP SCH ×2 (09:20→21:03)
[2021-09-07 10:00] VITALS: BP 187/76
[2021-09-07] MEDS: IV DEXTROSE 5 %-0.45 % NACL 1,000 ML IV SCH ×2 (12:44→20:00)
[2021-09-07 15:00] VITALS: BP 186/74
--- NOTE | 2021-09-07 15:11 | PDOC ---
[employer] PROGRESS NOTE Date of Service DOS: DATE: 09/07/21 TIME: 15:07 Chief Complaint Chief Complaint Acute hypoxic respiratory failure secondary to COVID-19 pneumonia VIDAL due to vasomotor nephropathy Mildly elevated troponin level suggestive of type II demand ischemia Morbid obesity History of stroke History of Present Illness History of Present Illness 66-year-old female with a past medical history of stroke with left-sided hemiparesis, tobacco misuse and possible COPD who presents events with 2 days of cough, shortness of breath, generalized weakness and fatigue. Patient called EMS for the symptoms and she was saturating at 60% on room air and was placed on 4 L nasal cannula and improved to 94%. Patient is not vaccinated for influenza or Covid. also has similar symptoms. Denies fevers, abdominal pain, chest pain, nausea vomiting or diarrhea or dysuria or hematuria. Patient does not wear any oxygen at home. She quit smoking several years ago, but she denies any known history of pulmonary disease. She had a previous severe stroke with residual left hemiparesis, that is unchanged. She has residual speech difficulty dysarthria which is unchanged as well. She usually goes to [facility] for her care. 09/06, weaknes, confusion, on bipap, cont current 09/07, still too weak, desat when trying to eat, cont the IV nutrition- we have no clinimix or PPN avail cannot feed herself well, we should try to let her eat some, very weak, Desat when BIPAP off even briefly discussed benefit of some PO intake with RN Vitals/I&O Vitals/I&O: Vital Signs Date Time Temp Pulse Resp B/P (MAP) Pulse Ox O2 Delivery O2 Flow Rate FiO2 09/07/21 12:15 79 BiPAP/CPAP 09/07/21 10:00 97.5 106 42 187/76 (113) 40.0 97.5 I & O 09/06/21 09/06/21 09/07/21 15:00 23:00 07:00 Intake Total 50 ml 800 ml 1100 ml Output Total 200 ml Balance 50 ml 800 ml 900 ml Physical Exam General: Alert, Cooperative, severe distress, Other (confused, ) Heart: Regular rate Abdomen: Normal bowel sounds Extremities: No clubbing Skin: No rashes Labs Labs: Laboratory Tests Test 09/06/21 16:37 09/06/21 20:47 09/07/21 08:21 Glucose (Fingerstick) 225 mg/dL (70-99) 199 mg/dL (70-99) 158 mg/dL (70-99) Assessment and Plan Assessmemt and Plan Problems Medical Problems: (1) COVID-19 Status: Acute (2) Pneumonia due to COVID-19 virus Status: Acute (3) Respiratory failure with hypoxia Status: Acute Comment Review of Relevant I have reviewed the following items allyn (where applicable) has been applied. Justifications for Admission Other Justification COVID-19 positive test (U07.1, COVID-19) with Acute Pneumonia (J12.89, Other viral pneumonia) (If respiratory failure or sepsis present, add as separate assessment) DORYS NORRIS MD Sep 07, 2021 15:11
[2021-09-07] MEDS: hydrALAZINE 20 MG/ML VIAL. IVP PRN (16:00)
--- NOTE | 2021-09-07 19:18 | NUR ---
Patient is hard to get a good oxygen saturation reading on, probes on bilateral ears, toe, finger. Mostly seems to have oxygen saturation in low 70s today when it does read. Bipap/vapotherm maxed out. Patient is a chemical code only.
[2021-09-07 19:48] VITALS: BP 179/85
[2021-09-07 20:07] LABS: CALCIUM 8.2 mg/dL (8.5-10.1); GFR 67.5; POTASSIUM 3.7 mmol/L (3.5-5.1)
[2021-09-07 22:36] VITALS: BP 145/82
[2021-09-08] MEDS: PIPERACILLIN/TAZOBACTAM 3.375 GM in IV NORMAL SALINE 50ML 50 ML IV SCH ×3 (00:22→12:25)
[2021-09-08 02:17] VITALS: BP 166/102
[2021-09-08] MEDS: STERILE WATER for RESP 2,000 ML BAG. INH PRN (03:00)
[2021-09-08] MEDS: IV DEXTROSE 5 %-0.45 % NACL 1,000 ML IV SCH ×2 (04:51→16:00)
[2021-09-08] MEDS: PANTOPRAZOLE IV PUSH 40 MG VIAL. IVP SCH (05:50)
[2021-09-08 06:23] VITALS: BP 140/81
[2021-09-08 06:41] LABS: BASO # 0.1 x10^3/uL (0.0-0.2); BASO % 1 % (0-3); EOS # 0.2 x10^3/uL (0.0-0.7); EOS % 1 % (0-3); HEMOGLOBIN 10.3 g/dL (12.0-15.5); LYMPH # 1.8 x10^3/uL (1.0-4.8); LYMPH % 10 % (24-48); MEAN CORPUSCULAR HEMOGLOBIN 26 pg (25-35); MEAN CORPUSCULAR HGB CONC 31 g/dL (31-37); MEAN CORPUSCULAR VOLUME 83 fL (79-100); MONO # 0.9 x10^3/uL (0.0-1.1); MONO % 5 % (0-9); NEUT # 14.8 x10^3/uL (1.8-7.7); NEUT % 83 % (31-73); PLATELET COUNT 232 x10^3/uL (140-400); RED BLOOD COUNT 3.99 x10^6/uL (3.50-5.40); WHITE BLOOD COUNT 17.9 x10^3/uL (4.0-11.0)
[2021-09-08 06:56] LABS: ALBUMIN 2.1 g/dL (3.4-5.0); ALBUMIN/GLOBULIN RATIO 0.4 (1.0-1.7); CALCIUM 8.4 mg/dL (8.5-10.1); GFR 67.5; POTASSIUM 3.5 mmol/L (3.5-5.1); TOTAL BILIRUBIN 0.9 mg/dL (0.2-1.0); TOTAL PROTEIN 7.1 g/dL (6.4-8.2)
[2021-09-08] MEDS: INSULIN LISPRO 300 UNITS/3 ML VIAL. SQ SCH ×3 (08:00→17:00)
[2021-09-08 08:42] LABS: % BANDS 2 % (0-9); % LYMPHS 15 % (24-48); % MONOS 1 % (0-10); % SEGS 82 % (35-66); NUCLEATED RBC 1; PLT ESTIMATE ADEQUATE (ADEQUATE)
[2021-09-08] MEDS: NYSTATIN TOPICAL POWDER 15GM BOTTLE. TP SCH ×2 (09:00→20:46)
[2021-09-08] MEDS: GABAPENTIN 300 MG CAPSULE. PO SCH ×3 (09:00→20:45)
[2021-09-08] MEDS: LISINOPRIL 20 MG TABLET PO SCH (09:00)
[2021-09-08] MEDS: ZINC SULFATE 220 MG CAPSULE. PO SCH (09:00)
[2021-09-08] MEDS: THIAMINE 100 MG TABLET. PO SCH (09:00)
[2021-09-08] MEDS: ASCORBIC ACID 1,000 MG TABLET PO SCH ×3 (09:00→20:45)
[2021-09-08] MEDS: ENOXAPARIN 40 MG/0.4 ML SYRINGE. SQ SCH ×2 (09:34→20:46)
--- NOTE | 2021-09-08 10:10 | PDOC ---
PULMONARY PROGRESS NOTES DATE: 09/08/21 TIME: 10:07 Subjective Patient remains severely ill. Currently on 100% FiO2 via BiPAP and 100% FiO2 with Vapotherm. Vitals Vital Signs Date Time Temp Pulse Resp B/P (MAP) Pulse Ox O2 Delivery O2 Flow Rate FiO2 09/08/21 06:23 96.8 97 41 140/81 (100) 87 vaportherm 40.0 96.8 Comments Visual exam done due to COVID-19 pandemia. on bipap no distress RRR no accessory muscle use Trace pitting edema Labs Laboratory Tests Test 09/06/21 11:13 09/06/21 16:37 09/06/21 20:47 09/07/21 08:21 Glucose (Fingerstick) 175 mg/dL (70-99) 225 mg/dL (70-99) 199 mg/dL (70-99) 158 mg/dL (70-99) Test 09/07/21 16:15 09/07/21 19:45 09/07/21 19:55 09/08/21 05:00 Glucose (Fingerstick) 227 mg/dL (70-99) 200 mg/dL (70-99) Sodium Level 143 mmol/L (136-145) 145 mmol/L (136-145) Potassium Level 3.7 mmol/L (3.5-5.1) 3.5 mmol/L (3.5-5.1) Chloride Level 108 mmol/L (98-107) 108 mmol/L (98-107) Carbon Dioxide Level 28 mmol/L (21-32) 25 mmol/L (21-32) Anion Gap 7 (6-14) 12 (6-14) Blood Urea Nitrogen 29 mg/dL (7-20) 28 mg/dL (7-20) Creatinine 1.0 mg/dL (0.6-1.0) 1.0 mg/dL (0.6-1.0) Estimated GFR (Cockcroft-Gault) 67.5 67.5 Glucose Level 211 mg/dL (70-99) 123 mg/dL (70-99) Calcium Level 8.2 mg/dL (8.5-10.1) 8.4 mg/dL (8.5-10.1) White Blood Count 17.9 x10^3/uL (4.0-11.0) Red Blood Count 3.99 x10^6/uL (3.50-5.40) Hemoglobin 10.3 g/dL (12.0-15.5) Hematocrit 33.0 % (36.0-47.0) Mean Corpuscular Volume 83 fL (79-100) Mean Corpuscular Hemoglobin 26 pg (25-35) Mean Corpuscular Hemoglobin Concent 31 g/dL (31-37) Red Cell Distribution Width 15.0 % (11.5-14.5) Platelet Count 232 x10^3/uL (140-400) Neutrophils (%) (Auto) 83 % (31-73) Lymphocytes (%) (Auto) 10 % (24-48) Monocytes (%) (Auto) 5 % (0-9) Eosinophils (%) (Auto) 1 % (0-3) Basophils (%) (Auto) 1 % (0-3) Neutrophils # (Auto) 14.8 x10^3/uL (1.8-7.7) Lymphocytes # (Auto) 1.8 x10^3/uL (1.0-4.8) Monocytes # (Auto) 0.9 x10^3/uL (0.0-1.1) Eosinophils # (Auto) 0.2 x10^3/uL (0.0-0.7) Basophils # (Auto) 0.1 x10^3/uL (0.0-0.2) Segmented Neutrophils % 82 % (35-66) Band Neutrophils % 2 % (0-9) Lymphocytes % 15 % (24-48) Monocytes % 1 % (0-10) Nucleated Red Blood Cells 1 Platelet Estimate Adequate (ADEQUATE) BUN/Creatinine Ratio 28 (6-20) Total Bilirubin 0.9 mg/dL (0.2-1.0) Aspartate Amino Transf (AST/SGOT) 31 U/L (15-37) Alanine Aminotransferase (ALT/SGPT) 23 U/L (14-59) Alkaline Phosphatase 224 U/L (46-116) Total Protein 7.1 g/dL (6.4-8.2) Albumin 2.1 g/dL (3.4-5.0) Albumin/Globulin Ratio 0.4 (1.0-1.7) Laboratory Tests Test 09/07/21 16:15 09/07/21 19:45 09/07/21 19:55 09/08/21 05:00 Glucose (Fingerstick) 227 mg/dL (70-99) 200 mg/dL (70-99) Sodium Level 143 mmol/L (136-145) 145 mmol/L (136-145) Potassium Level 3.7 mmol/L (3.5-5.1) 3.5 mmol/L (3.5-5.1) Chloride Level 108 mmol/L (98-107) 108 mmol/L (98-107) Carbon Dioxide Level 28 mmol/L (21-32) 25 mmol/L (21-32) Anion Gap 7 (6-14) 12 (6-14) Blood Urea Nitrogen 29 mg/dL (7-20) 28 mg/dL (7-20) Creatinine 1.0 mg/dL (0.6-1.0) 1.0 mg/dL (0.6-1.0) Estimated GFR (Cockcroft-Gault) 67.5 67.5 Glucose Level 211 mg/dL (70-99) 123 mg/dL (70-99) Calcium Level 8.2 mg/dL (8.5-10.1) 8.4 mg/dL (8.5-10.1) White Blood Count 17.9 x10^3/uL (4.0-11.0) Red Blood Count 3.99 x10^6/uL (3.50-5.40) Hemoglobin 10.3 g/dL (12.0-15.5) Hematocrit 33.0 % (36.0-47.0) Mean Corpuscular Volume 83 fL (79-100) Mean Corpuscular Hemoglobin 26 pg (25-35) Mean Corpuscular Hemoglobin Concent 31 g/dL (31-37) Red Cell Distribution Width 15.0 % (11.5-14.5) Platelet Count 232 x10^3/uL (140-400) Neutrophils (%) (Auto) 83 % (31-73) Lymphocytes (%) (Auto) 10 % (24-48) Monocytes (%) (Auto) 5 % (0-9) Eosinophils (%) (Auto) 1 % (0-3) Basophils (%) (Auto) 1 % (0-3) Neutrophils # (Auto) 14.8 x10^3/uL (1.8-7.7) Lymphocytes # (Auto) 1.8 x10^3/uL (1.0-4.8) Monocytes # (Auto) 0.9 x10^3/uL (0.0-1.1) Eosinophils # (Auto) 0.2 x10^3/uL (0.0-0.7) Basophils # (Auto) 0.1 x10^3/uL (0.0-0.2) Segmented Neutrophils % 82 % (35-66) Band Neutrophils % 2 % (0-9) Lymphocytes % 15 % (24-48) Monocytes % 1 % (0-10) Nucleated Red Blood Cells 1 Platelet Estimate Adequate (ADEQUATE) BUN/Creatinine Ratio 28 (6-20) Total Bilirubin 0.9 mg/dL (0.2-1.0) Aspartate Amino Transf (AST/SGOT) 31 U/L (15-37) Alanine Aminotransferase (ALT/SGPT) 23 U/L (14-59) Alkaline Phosphatase 224 U/L (46-116) Total Protein 7.1 g/dL (6.4-8.2) Albumin 2.1 g/dL (3.4-5.0) Albumin/Globulin Ratio 0.4 (1.0-1.7) Medications Active Scripts Medications Dose Route/Sig Max Daily Dose Days Date Category Vitamin D2 (Ergocalciferol (Vitamin D2)) 1,250 Mcg Capsule 1,250 Mcg PO WEEKLY 08/27/21 Reported Naproxen Cr (Naproxen Sodium) 500 Mg Tbmp.24hr 1 Tab PO BID PRN 30 08/27/21 Reported Gabapentin (Gabapentin) 300 Mg Capsule 300 Mg PO TID 08/27/21 Reported Triamcinolone Acetonide 80 Gm Oint...g. 1 Betty TP BID 08/27/21 Reported Atorvastatin Calcium 40 Mg Tablet 1 Tab PO DAILY 08/27/21 Reported Tizanidine Hcl 4 Mg Tablet 1 Tab PO BID 08/27/21 Reported Oxybutynin Chloride Er (Oxybutynin Chloride) 5 Mg Tab.er.24 1 Tab PO DAILY 08/27/21 Reported Impression . 1. Acute hypoxic respiratory failure secondary to COVID-19 pneumonia/acute lung injury and early ARDS. Requiring Vapotherm and BiPAP at 100%. 2. Abnormal chest x-ray consistent with viral pneumonia. 3. 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 4. History of tobaccoism. Quit 2 years ago. 5. Acute kidney injury versus chronic kidney disease. 6. Increased CPK and troponin level. Plan . prognosis poor 02 titration to keep sat 90% Currently on 100% FiO2 via Vapotherm and BiPAP. elevate hob as needed benzodiazepine for anxiety. DNR Continue supportive care. Less likely to survive. discussed with RN. ADIEL CHAIREZ MD Sep 08, 2021 10:10
[2021-09-08 10:27] VITALS: BP 186/91
[2021-09-08] MEDS: MORPHINE SULFATE 2 MG/ML INJ. IV PRN (11:35)
[2021-09-08 15:12] VITALS: BP 193/88
--- NOTE | 2021-09-08 15:35 | NUR ---
SS following up with discharge planning. SS reviewed pt chart and discussed with pt RN. Pt is currently on BIPAP and Vapotherm at 100%. COVID19 positive. Pt on IV Zosyn. Not stable. SS will continue to follow for discharge planning.
[2021-09-08 19:00] VITALS: BP 199/98
[2021-09-08 22:10] VITALS: BP 148/74
[2021-09-09 02:27] VITALS: BP 171/81
[2021-09-09] MEDS: STERILE WATER for RESP 2,000 ML BAG. INH PRN ×2 (03:11→03:34)
[2021-09-09] MEDS: IV DEXTROSE 5 %-0.45 % NACL 1,000 ML IV SCH ×3 (03:18→22:06)
[2021-09-09] MEDS: PANTOPRAZOLE IV PUSH 40 MG VIAL. IVP SCH (06:25)
[2021-09-09 07:00] VITALS: BP 153/68
[2021-09-09] MEDS: INSULIN LISPRO 300 UNITS/3 ML VIAL. SQ SCH ×3 (08:00→17:00)
[2021-09-09] MEDS: ENOXAPARIN 40 MG/0.4 ML SYRINGE. SQ SCH ×2 (09:00→21:27)
[2021-09-09] MEDS: ZINC SULFATE 220 MG CAPSULE. PO SCH (09:00)
[2021-09-09] MEDS: GABAPENTIN 300 MG CAPSULE. PO SCH ×3 (09:00→21:00)
[2021-09-09] MEDS: NYSTATIN TOPICAL POWDER 15GM BOTTLE. TP SCH ×2 (09:00→21:27)
[2021-09-09] MEDS: THIAMINE 100 MG TABLET. PO SCH (09:00)
[2021-09-09] MEDS: LISINOPRIL 20 MG TABLET PO SCH (09:00)
[2021-09-09] MEDS: ASCORBIC ACID 1,000 MG TABLET PO SCH ×3 (09:00→21:00)
--- NOTE | 2021-09-09 09:59 | PDOC ---
PULMONARY PROGRESS NOTES DATE: 09/09/21 TIME: 09:58 Subjective Patient remains severely ill. Currently on 100% FiO2 via BiPAP and 100% FiO2 with Vapotherm with O2 saturation of 90% Vitals Vital Signs Date Time Temp Pulse Resp B/P (MAP) Pulse Ox O2 Delivery O2 Flow Rate FiO2 09/09/21 08:00 Vapotherm 40.0 09/09/21 07:00 98.1 95 25 153/68 (96) 92 98.1 Comments Visual exam done due to COVID-19 pandemia. on bipap no distress RRR no accessory muscle use Trace pitting edema Labs Laboratory Tests Test 09/07/21 16:15 09/07/21 19:45 09/07/21 19:55 09/08/21 05:00 Glucose (Fingerstick) 227 mg/dL (70-99) 200 mg/dL (70-99) Sodium Level 143 mmol/L (136-145) 145 mmol/L (136-145) Potassium Level 3.7 mmol/L (3.5-5.1) 3.5 mmol/L (3.5-5.1) Chloride Level 108 mmol/L (98-107) 108 mmol/L (98-107) Carbon Dioxide Level 28 mmol/L (21-32) 25 mmol/L (21-32) Anion Gap 7 (6-14) 12 (6-14) Blood Urea Nitrogen 29 mg/dL (7-20) 28 mg/dL (7-20) Creatinine 1.0 mg/dL (0.6-1.0) 1.0 mg/dL (0.6-1.0) Estimated GFR (Cockcroft-Gault) 67.5 67.5 Glucose Level 211 mg/dL (70-99) 123 mg/dL (70-99) Calcium Level 8.2 mg/dL (8.5-10.1) 8.4 mg/dL (8.5-10.1) White Blood Count 17.9 x10^3/uL (4.0-11.0) Red Blood Count 3.99 x10^6/uL (3.50-5.40) Hemoglobin 10.3 g/dL (12.0-15.5) Hematocrit 33.0 % (36.0-47.0) Mean Corpuscular Volume 83 fL (79-100) Mean Corpuscular Hemoglobin 26 pg (25-35) Mean Corpuscular Hemoglobin Concent 31 g/dL (31-37) Red Cell Distribution Width 15.0 % (11.5-14.5) Platelet Count 232 x10^3/uL (140-400) Neutrophils (%) (Auto) 83 % (31-73) Lymphocytes (%) (Auto) 10 % (24-48) Monocytes (%) (Auto) 5 % (0-9) Eosinophils (%) (Auto) 1 % (0-3) Basophils (%) (Auto) 1 % (0-3) Neutrophils # (Auto) 14.8 x10^3/uL (1.8-7.7) Lymphocytes # (Auto) 1.8 x10^3/uL (1.0-4.8) Monocytes # (Auto) 0.9 x10^3/uL (0.0-1.1) Eosinophils # (Auto) 0.2 x10^3/uL (0.0-0.7) Basophils # (Auto) 0.1 x10^3/uL (0.0-0.2) Segmented Neutrophils % 82 % (35-66) Band Neutrophils % 2 % (0-9) Lymphocytes % 15 % (24-48) Monocytes % 1 % (0-10) Nucleated Red Blood Cells 1 Platelet Estimate Adequate (ADEQUATE) BUN/Creatinine Ratio 28 (6-20) Total Bilirubin 0.9 mg/dL (0.2-1.0) Aspartate Amino Transf (AST/SGOT) 31 U/L (15-37) Alanine Aminotransferase (ALT/SGPT) 23 U/L (14-59) Alkaline Phosphatase 224 U/L (46-116) Total Protein 7.1 g/dL (6.4-8.2) Albumin 2.1 g/dL (3.4-5.0) Albumin/Globulin Ratio 0.4 (1.0-1.7) Test 09/08/21 20:49 09/09/21 08:10 Glucose (Fingerstick) 125 mg/dL (70-99) 139 mg/dL (70-99) Laboratory Tests Test 09/08/21 20:49 09/09/21 08:10 Glucose (Fingerstick) 125 mg/dL (70-99) 139 mg/dL (70-99) Medications Active Scripts Medications Dose Route/Sig Max Daily Dose Days Date Category Vitamin D2 (Ergocalciferol (Vitamin D2)) 1,250 Mcg Capsule 1,250 Mcg PO WEEKLY 08/27/21 Reported Naproxen Cr (Naproxen Sodium) 500 Mg Tbmp.24hr 1 Tab PO BID PRN 30 08/27/21 Reported Gabapentin (Gabapentin) 300 Mg Capsule 300 Mg PO TID 08/27/21 Reported Triamcinolone Acetonide 80 Gm Oint...g. 1 Betty TP BID 08/27/21 Reported Atorvastatin Calcium 40 Mg Tablet 1 Tab PO DAILY 08/27/21 Reported Tizanidine Hcl 4 Mg Tablet 1 Tab PO BID 08/27/21 Reported Oxybutynin Chloride Er (Oxybutynin Chloride) 5 Mg Tab.er.24 1 Tab PO DAILY 08/27/21 Reported Impression . 1. Acute hypoxic respiratory failure secondary to COVID-19 pneumonia/acute lung injury and early ARDS. Requiring Vapotherm and BiPAP at 100%. 2. Abnormal chest x-ray consistent with viral pneumonia. 3. 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 4. History of tobaccoism. Quit 2 years ago. 5. Acute kidney injury versus chronic kidney disease. 6. Increased CPK and troponin level. Plan . prognosis poor 02 titration to keep sat 90% Currently on 100% FiO2 via Vapotherm and BiPAP. elevate hob as needed benzodiazepine for anxiety. DNR Continue supportive care. Less likely to survive. discussed with RN. ADIEL CHAIREZ MD Sep 09, 2021 09:59
[2021-09-09 11:00] VITALS: BP 181/77
--- NOTE | 2021-09-09 12:34 | PDOC ---
[employer] PROGRESS NOTE Date of Service DOS: DATE: 09/09/21 TIME: 12:33 Chief Complaint Chief Complaint Acute hypoxic respiratory failure secondary to COVID-19 pneumonia VIDAL due to vasomotor nephropathy Mildly elevated troponin level suggestive of type II demand ischemia Morbid obesity History of stroke History of Present Illness History of Present Illness 66-year-old female with a past medical history of stroke with left-sided hemiparesis, tobacco misuse and possible COPD who presents events with 2 days of cough, shortness of breath, generalized weakness and fatigue. Patient called EMS for the symptoms and she was saturating at 60% on room air and was placed on 4 L nasal cannula and improved to 94%. Patient is not vaccinated for influenza or Covid. also has similar symptoms. Denies fevers, abdominal pain, chest pain, nausea vomiting or diarrhea or dysuria or hematuria. Patient does not wear any oxygen at home. She quit smoking several years ago, but she denies any known history of pulmonary disease. She had a previous severe stroke with residual left hemiparesis, that is unchanged. She has residual speech difficulty dysarthria which is unchanged as well. She usually goes to [facility] for her care. 09/06, weaknes, confusion, on bipap, cont current 09/07, still too weak, desat when trying to eat, cont the IV nutrition- we have no clinimix or PPN avail. cannot feed herself well, we should try to let her eat some, very weak, Desat when BIPAP off even briefly. discussed benefit of some PO intake with RN 09/08: Seen on BIPAP. Significant O2 desaturations when attempting to eat. Very weak. Severely ill, poor prognosis, she is aware, notes DNR status.Currently on 100% FiO2 via BiPAP and 100% FiO2 with Vapotherm. 09/09: Seen on BiPAP with supplemental 100% FiO2 40 L/min Vapotherm with saturations 87%. Not responding very well. Extremely poor prognosis shared with family. Vitals/I&O Vitals/I&O: Vital Signs Date Time Temp Pulse Resp B/P (MAP) Pulse Ox O2 Delivery O2 Flow Rate FiO2 09/09/21 11:03 90 BiPAP/CPAP 09/09/21 11:00 96.1 97 32 181/77 (111) 40.0 96.1 l I & O 09/08/21 09/08/21 09/09/21 15:00 23:00 07:00 Intake Total 0 ml 0 ml Output Total 200 ml 400 ml Balance 0 ml -200 ml -400 ml Physical Exam General: severe distress, Other (confused, ) Heart: Regular rate Abdomen: Normal bowel sounds Extremities: No clubbing Skin: No rashes Labs Labs: Laboratory Tests Test 09/08/21 20:49 09/09/21 08:10 09/09/21 11:41 Glucose (Fingerstick) 125 mg/dL (70-99) 139 mg/dL (70-99) 140 mg/dL (70-99) Assessment and Plan Assessmemt and Plan Problems Medical Problems: (1) COVID-19 Status: Acute (2) Pneumonia due to COVID-19 virus Status: Acute (3) Respiratory failure with hypoxia Status: Acute Comment Review of Relevant I have reviewed the following items allyn (where applicable) has been applied. Justifications for Admission Other Justification COVID-19 positive test (U07.1, COVID-19) with Acute Pneumonia (J12.89, Other viral pneumonia) (If respiratory failure or sepsis present, add as separate assessment) SIENA FONTENOT MD Sep 09, 2021 12:34
--- NOTE | 2021-09-09 14:52 | NUR ---
SS following up with discharge planning. SS reviewed pt chart and discussed with pt RN. Pt is currently on Vapotherm and BIPAP at 100%. COVID19 positive. Not stable. SS will continue to follow for discharge planning.
[2021-09-09 15:19] VITALS: BP 184/88
[2021-09-09 19:20] VITALS: BP 178/85
[2021-09-09] MEDS: diphenhydrAMINE 50 MG/ML VIAL IVP PRN (21:27)
[2021-09-09 22:27] VITALS: BP 174/80
[2021-09-10 02:55] VITALS: BP 182/79
[2021-09-10] MEDS: MORPHINE SULFATE 2 MG/ML INJ. IV PRN ×3 (04:26→11:41)
[2021-09-10] MEDS: PANTOPRAZOLE IV PUSH 40 MG VIAL. IVP SCH (06:32)
[2021-09-10 07:00] VITALS: BP 182/79
[2021-09-10] MEDS: GABAPENTIN 300 MG CAPSULE. PO SCH ×3 (07:44→21:00)
[2021-09-10] MEDS: ASCORBIC ACID 1,000 MG TABLET PO SCH ×3 (07:45→21:00)
[2021-09-10] MEDS: ZINC SULFATE 220 MG CAPSULE. PO SCH (07:45)
[2021-09-10] MEDS: THIAMINE 100 MG TABLET. PO SCH (07:45)
[2021-09-10] MEDS: LISINOPRIL 20 MG TABLET PO SCH (07:45)
[2021-09-10] MEDS: INSULIN LISPRO 300 UNITS/3 ML VIAL. SQ SCH ×3 (07:47→17:00)
[2021-09-10] MEDS: STERILE WATER for RESP 2,000 ML BAG. INH PRN (07:55)
[2021-09-10] MEDS: NYSTATIN TOPICAL POWDER 15GM BOTTLE. TP SCH ×2 (08:14→21:00)
[2021-09-10] MEDS: IV DEXTROSE 5 %-0.45 % NACL 1,000 ML IV SCH ×2 (08:15→17:41)
[2021-09-10] MEDS: ENOXAPARIN 40 MG/0.4 ML SYRINGE. SQ SCH ×2 (08:17→20:08)
[2021-09-10] MEDS: hydrALAZINE 20 MG/ML VIAL. IVP PRN (08:42)
--- NOTE | 2021-09-10 10:35 | PDOC ---
[employer] PROGRESS NOTE Date of Service DOS: DATE: 09/10/21 TIME: 10:34 Chief Complaint Chief Complaint Acute hypoxic respiratory failure secondary to COVID-19 pneumonia VIDAL due to vasomotor nephropathy Mildly elevated troponin level suggestive of type II demand ischemia Morbid obesity History of stroke History of Present Illness History of Present Illness 66-year-old female with a past medical history of stroke with left-sided hemiparesis, tobacco misuse and possible COPD who presents events with 2 days of cough, shortness of breath, generalized weakness and fatigue. Patient called EMS for the symptoms and she was saturating at 60% on room air and was placed on 4 L nasal cannula and improved to 94%. Patient is not vaccinated for influenza or Covid. also has similar symptoms. Denies fevers, abdominal pain, chest pain, nausea vomiting or diarrhea or dysuria or hematuria. Patient does not wear any oxygen at home. She quit smoking several years ago, but she denies any known history of pulmonary disease. She had a previous severe stroke with residual left hemiparesis, that is unchanged. She has residual speech difficulty dysarthria which is unchanged as well. She usually goes to [facility] for her care. 09/06: weaknes, confusion, on bipap, cont current 09/07: still too weak, desat when trying to eat, cont the IV nutrition- we have no clinimix or PPN avail. cannot feed herself well, we should try to let her eat some, very weak, Desat when BIPAP off even briefly. discussed benefit of some PO intake with RN 09/08: Seen on BIPAP. Significant O2 desaturations when attempting to eat. Very weak. Severely ill, poor prognosis, she is aware, notes DNR status.Currently on 100% FiO2 via BiPAP and 100% FiO2 with Vapotherm. 09/09: Seen on BiPAP with supplemental 100% FiO2 40 L/min Vapotherm with saturations 87%. Not responding very well. Extremely poor prognosis shared with family. 09/10: Seen bedside on BiPAP supplemental her percent FiO2 40 recruited Vapotherm. Saturations 78%. shared poor prognosis with boyfriend/common law Wilfred son Олег is not answering. Glucose stable. Vitals/I&O Vitals/I&O: Vital Signs Date Time Temp Pulse Resp B/P (MAP) Pulse Ox O2 Delivery O2 Flow Rate FiO2 09/10/21 09:11 81 40.0 09/10/21 08:42 100 182/79 09/10/21 08:00 Vapotherm 09/10/21 07:00 98.7 43 98.7 I & O 09/09/21 09/09/21 09/10/21 15:00 23:00 07:00 Intake Total 0 ml Output Total 800 ml 600 ml Balance 0 ml -800 ml -600 ml Physical Exam General: severe distress, Other (confused, ) Heart: Regular rate Abdomen: Normal bowel sounds Extremities: No clubbing Skin: No rashes Labs Labs: Laboratory Tests Test 09/09/21 11:41 09/09/21 16:58 09/09/21 20:40 09/10/21 07:43 Glucose (Fingerstick) 140 mg/dL (70-99) 151 mg/dL (70-99) 141 mg/dL (70-99) 156 mg/dL (70-99) Assessment and Plan Assessmemt and Plan Problems Medical Problems: (1) COVID-19 Status: Acute (2) Pneumonia due to COVID-19 virus Status: Acute (3) Respiratory failure with hypoxia Status: Acute Comment Review of Relevant I have reviewed the following items allyn (where applicable) has been applied. Justifications for Admission Other Justification COVID-19 positive test (U07.1, COVID-19) with Acute Pneumonia (J12.89, Other viral pneumonia) (If respiratory failure or sepsis present, add as separate assessment) SIENA FONTENOT MD Sep 10, 2021 10:35
[2021-09-10 11:00] VITALS: BP 175/77
[2021-09-10] MEDS: LABETALOL 20 MG/4 ML DISP.SYRIN. IVP PRN (11:42)
--- NOTE | 2021-09-10 11:56 | PDOC ---
PULMONARY PROGRESS NOTES DATE: 09/10/21 TIME: 11:55 Subjective Patient remains severely ill. Currently on 100% FiO2 via BiPAP and 100% FiO2 with Vapotherm with O2 saturation of 90% Vitals Vital Signs Date Time Temp Pulse Resp B/P (MAP) Pulse Ox O2 Delivery O2 Flow Rate FiO2 09/10/21 11:42 109 175/77 09/10/21 11:41 81 40.0 09/10/21 08:00 Vapotherm 09/10/21 07:00 98.7 43 98.7 Comments Visual exam done due to COVID-19 pandemia. on bipap no distress RRR no accessory muscle use Trace pitting edema Labs Laboratory Tests Test 09/08/21 20:49 09/09/21 08:10 09/09/21 11:41 09/09/21 16:58 Glucose (Fingerstick) 125 mg/dL (70-99) 139 mg/dL (70-99) 140 mg/dL (70-99) 151 mg/dL (70-99) Test 09/09/21 20:40 09/10/21 07:43 09/10/21 11:51 Glucose (Fingerstick) 141 mg/dL (70-99) 156 mg/dL (70-99) 165 mg/dL (70-99) Laboratory Tests Test 09/09/21 16:58 09/09/21 20:40 09/10/21 07:43 09/10/21 11:51 Glucose (Fingerstick) 151 mg/dL (70-99) 141 mg/dL (70-99) 156 mg/dL (70-99) 165 mg/dL (70-99) Medications Active Scripts Medications Dose Route/Sig Max Daily Dose Days Date Category Vitamin D2 (Ergocalciferol (Vitamin D2)) 1,250 Mcg Capsule 1,250 Mcg PO WEEKLY 08/27/21 Reported Naproxen Cr (Naproxen Sodium) 500 Mg Tbmp.24hr 1 Tab PO BID PRN 30 08/27/21 Reported Gabapentin (Gabapentin) 300 Mg Capsule 300 Mg PO TID 08/27/21 Reported Triamcinolone Acetonide 80 Gm Oint...g. 1 Betty TP BID 08/27/21 Reported Atorvastatin Calcium 40 Mg Tablet 1 Tab PO DAILY 08/27/21 Reported Tizanidine Hcl 4 Mg Tablet 1 Tab PO BID 08/27/21 Reported Oxybutynin Chloride Er (Oxybutynin Chloride) 5 Mg Tab.er.24 1 Tab PO DAILY 08/27/21 Reported Impression . 1. Acute hypoxic respiratory failure secondary to COVID-19 pneumonia/acute lung injury and early ARDS. Requiring Vapotherm and BiPAP at 100%. 2. Abnormal chest x-ray consistent with viral pneumonia. 3. 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 4. History of tobaccoism. Quit 2 years ago. 5. Acute kidney injury versus chronic kidney disease. 6. Increased CPK and troponin level. Plan . prognosis poor 02 titration to keep sat 90% Currently on 100% FiO2 via Vapotherm and BiPAP. elevate hob as needed benzodiazepine for anxiety. DNR Continue supportive care. Less likely to survive. discussed with RN. and Dr Soni. Would rec comfort care measures ADIEL CHAIREZ MD Sep 10, 2021 11:56
[2021-09-10 15:00] VITALS: BP 142/72
[2021-09-10 19:52] VITALS: BP 150/72
[2021-09-10 22:55] VITALS: BP 131/87
[2021-09-11] MEDS: MORPHINE SULFATE 2 MG/ML INJ. IV PRN ×7 (02:58→19:56)
[2021-09-11 03:33] VITALS: BP 133/71
[2021-09-11] MEDS: IV DEXTROSE 5 %-0.45 % NACL 1,000 ML IV SCH ×3 (04:12→23:50)
[2021-09-11] MEDS: PANTOPRAZOLE IV PUSH 40 MG VIAL. IVP SCH (05:33)
[2021-09-11] MEDS: GABAPENTIN 300 MG CAPSULE. PO SCH ×3 (06:58→20:37)
[2021-09-11] MEDS: THIAMINE 100 MG TABLET. PO SCH (06:59)
[2021-09-11] MEDS: ZINC SULFATE 220 MG CAPSULE. PO SCH (06:59)
[2021-09-11] MEDS: LISINOPRIL 20 MG TABLET PO SCH (06:59)
[2021-09-11 07:00] VITALS: BP 157/78
[2021-09-11] MEDS: ASCORBIC ACID 1,000 MG TABLET PO SCH ×2 (07:00→20:38)
[2021-09-11] MEDS: ENOXAPARIN 40 MG/0.4 ML SYRINGE. SQ SCH ×2 (07:55→19:56)
[2021-09-11] MEDS: INSULIN LISPRO 300 UNITS/3 ML VIAL. SQ SCH ×3 (07:55→17:00)
[2021-09-11] MEDS: NYSTATIN TOPICAL POWDER 15GM BOTTLE. TP SCH ×2 (07:55→20:38)
--- NOTE | 2021-09-11 09:42 | NUR ---
SS following up with discharge planning. SS reviewed pt chart and discussed with pt RN. Pt is currently on Vapotherm and BIPAP at 100%. COVID19 positive. Not stable. Respiratory rate in the 60's. Physician notified. Pt's spouse reported that he is discussing goals of care with family today and will notify RN of there decision. SS will continue to follow for discharge planning.
[2021-09-11 11:00] VITALS: BP 153/83
--- NOTE | 2021-09-11 11:34 | PDOC ---
PULMONARY PROGRESS NOTES DATE: 09/11/21 TIME: 11:33 Subjective Patient remains severely ill. Currently on 100% FiO2 via BiPAP and 100% FiO2 with Vapotherm with O2 saturation of 90% Vitals Vital Signs Date Time Temp Pulse Resp B/P (MAP) Pulse Ox O2 Delivery O2 Flow Rate FiO2 09/11/21 10:23 65 40.0 09/11/21 08:00 Vapotherm 09/11/21 07:56 40 09/11/21 07:00 97.5 102 157/78 (104) 97.5 Comments Visual exam done due to COVID-19 pandemia. on bipap no distress RRR no accessory muscle use Trace pitting edema Labs Laboratory Tests Test 09/09/21 11:41 09/09/21 16:58 09/09/21 20:40 09/10/21 07:43 Glucose (Fingerstick) 140 mg/dL (70-99) 151 mg/dL (70-99) 141 mg/dL (70-99) 156 mg/dL (70-99) Test 09/10/21 11:51 09/10/21 16:48 09/10/21 20:56 09/11/21 07:41 Glucose (Fingerstick) 165 mg/dL (70-99) 142 mg/dL (70-99) 128 mg/dL (70-99) 144 mg/dL (70-99) Test 09/11/21 11:25 Glucose (Fingerstick) 140 mg/dL (70-99) Laboratory Tests Test 09/10/21 11:51 09/10/21 16:48 09/10/21 20:56 09/11/21 07:41 Glucose (Fingerstick) 165 mg/dL (70-99) 142 mg/dL (70-99) 128 mg/dL (70-99) 144 mg/dL (70-99) Test 09/11/21 11:25 Glucose (Fingerstick) 140 mg/dL (70-99) Medications Active Scripts Medications Dose Route/Sig Max Daily Dose Days Date Category Vitamin D2 (Ergocalciferol (Vitamin D2)) 1,250 Mcg Capsule 1,250 Mcg PO WEEKLY 08/27/21 Reported Naproxen Cr (Naproxen Sodium) 500 Mg Tbmp.24hr 1 Tab PO BID PRN 30 08/27/21 Reported Gabapentin (Gabapentin) 300 Mg Capsule 300 Mg PO TID 08/27/21 Reported Triamcinolone Acetonide 80 Gm Oint...g. 1 Betty TP BID 08/27/21 Reported Atorvastatin Calcium 40 Mg Tablet 1 Tab PO DAILY 08/27/21 Reported Tizanidine Hcl 4 Mg Tablet 1 Tab PO BID 08/27/21 Reported Oxybutynin Chloride Er (Oxybutynin Chloride) 5 Mg Tab.er.24 1 Tab PO DAILY 08/27/21 Reported Impression . 1. Acute hypoxic respiratory failure secondary to COVID-19 pneumonia/acute lung injury and early ARDS. Requiring Vapotherm and BiPAP at 100%. 2. Abnormal chest x-ray consistent with viral pneumonia. 3. 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 4. History of tobaccoism. Quit 2 years ago. 5. Acute kidney injury versus chronic kidney disease. 6. Increased CPK and troponin level. Plan . prognosis poor. Patient continues to have some use of accessory muscles of respiration. 02 titration to keep sat 90% Currently on 100% FiO2 via Vapotherm and BiPAP. as needed benzodiazepine for anxiety. DNR Continue supportive care. Less likely to survive. discussed with RN. and Dr Soni. Would rec comfort care measures. Dr. Lewis has made multiple attempts to reach the family but has been unsuccessful. ADIEL CHAIREZ MD Sep 11, 2021 11:34
[2021-09-11 14:22] VITALS: BP 121/69
--- NOTE | 2021-09-11 16:37 | PDOC ---
[employer] PROGRESS NOTE Date of Service DOS: DATE: 09/11/21 TIME: 16:32 Chief Complaint Chief Complaint Acute hypoxic respiratory failure secondary to COVID-19 pneumonia VIDAL due to vasomotor nephropathy Mildly elevated troponin level suggestive of type II demand ischemia Morbid obesity History of stroke History of Present Illness History of Present Illness 66-year-old female with a past medical history of stroke with left-sided hemiparesis, tobacco misuse and possible COPD who presents events with 2 days of cough, shortness of breath, generalized weakness and fatigue. Patient called EMS for the symptoms and she was saturating at 60% on room air and was placed on 4 L nasal cannula and improved to 94%. Patient is not vaccinated for influenza or Covid. also has similar symptoms. Denies fevers, abdominal pain, chest pain, nausea vomiting or diarrhea or dysuria or hematuria. Patient does not wear any oxygen at home. She quit smoking several years ago, but she denies any known history of pulmonary disease. She had a previous severe stroke with residual left hemiparesis, that is unchanged. She has residual speech difficulty dysarthria which is unchanged as well. She usually goes to [facility] for her care. 09/06: weaknes, confusion, on bipap, cont current 09/07: still too weak, desat when trying to eat, cont the IV nutrition- we have no clinimix or PPN avail. cannot feed herself well, we should try to let her eat some, very weak, Desat when BIPAP off even briefly. discussed benefit of some PO intake with RN 09/08: Seen on BIPAP. Significant O2 desaturations when attempting to eat. Very weak. Severely ill, poor prognosis, she is aware, notes DNR status.Currently on 100% FiO2 via BiPAP and 100% FiO2 with Vapotherm. 09/09: Seen on BiPAP with supplemental 100% FiO2 40 L/min Vapotherm with saturations 87%. Not responding very well. Extremely poor prognosis shared with family. 09/10: Seen bedside on BiPAP supplemental her percent FiO2 40 recruited Vapotherm. Saturations 78%. shared poor prognosis with boyfriend/common law Wilfred son Олег is not answering. Glucose stable. 09/11: Seen bedside on BiPAP with supplemental Vapotherm 100% FiO2 40 L/min O2 saturations are in the mid 50s. She is gasping, is responsive to morphine for air hunger. Contacted her boyfriend Wilfred notes patient has 2 sisters and 4 living sons 1 of which is her primary beneficiary and DPOA who is currently incarcerated. There is a plan for bailing this son out of detention today. Family is aware of the grim prognosis and patient's wishes not to have CPR or ventilation and are aware that her is likely imminent Vitals/I&O Vitals/I&O: Vital Signs Date Time Temp Pulse Resp B/P (MAP) Pulse Ox O2 Delivery O2 Flow Rate FiO2 09/11/21 16:15 61 40.0 09/11/21 15:52 BiPAP/CPAP 09/11/21 14:22 97.6 98 36 121/69 (86) 97.6 I & O 0 09/10/21 09/10/21 09/11/21 15:00 23:00 07:00 Intake Total 0 ml 0 ml Output Total 700 ml 200 ml Balance 0 ml -700 ml -200 ml Physical Exam General: severe distress, Other (confused, ) Heart: Regular rate Abdomen: Normal bowel sounds Extremities: No clubbing Skin: No rashes Labs Labs: Laboratory Tests Test 09/10/21 16:48 09/10/21 20:56 09/11/21 07:41 09/11/21 11:25 Glucose (Fingerstick) 142 mg/dL (70-99) 128 mg/dL (70-99) 144 mg/dL (70-99) 140 mg/dL (70-99) Assessment and Plan Assessmemt and Plan Problems Medical Problems: (1) COVID-19 Status: Acute (2) Pneumonia due to COVID-19 virus Status: Acute (3) Respiratory failure with hypoxia Status: Acute Comment Review of Relevant I have reviewed the following items allyn (where applicable) has been applied. Justifications for Admission Other Justification COVID-19 positive test (U07.1, COVID-19) with Acute Pneumonia (J12.89, Other viral pneumonia) (If respiratory failure or sepsis present, add as separate assessment) SIENA FONTENOT MD Sep 11, 2021 16:37
[2021-09-11 19:16] VITALS: BP 112/62
[2021-09-11 22:17] VITALS: BP 109/67
[2021-09-12] MEDS: MORPHINE SULFATE 2 MG/ML INJ. IV PRN ×5 (01:44→22:47)
[2021-09-12 02:11] VITALS: BP 140/74
[2021-09-12] MEDS: PANTOPRAZOLE IV PUSH 40 MG VIAL. IVP SCH (06:00)
[2021-09-12 07:00] VITALS: BP 121/70
[2021-09-12] MEDS: GABAPENTIN 300 MG CAPSULE. PO SCH ×3 (07:59→21:00)
[2021-09-12] MEDS: ZINC SULFATE 220 MG CAPSULE. PO SCH (07:59)
[2021-09-12] MEDS: LISINOPRIL 20 MG TABLET PO SCH (07:59)
[2021-09-12] MEDS: ASCORBIC ACID 1,000 MG TABLET PO SCH ×3 (08:00→21:00)
[2021-09-12] MEDS: NYSTATIN TOPICAL POWDER 15GM BOTTLE. TP SCH ×2 (08:00→21:00)
[2021-09-12] MEDS: ENOXAPARIN 40 MG/0.4 ML SYRINGE. SQ SCH ×2 (08:00→22:01)
[2021-09-12] MEDS: THIAMINE 100 MG TABLET. PO SCH (08:00)
[2021-09-12] MEDS: INSULIN LISPRO 300 UNITS/3 ML VIAL. SQ SCH ×3 (08:00→16:56)
--- NOTE | 2021-09-12 10:17 | PDOC ---
PULMONARY PROGRESS NOTES DATE: 09/12/21 TIME: 10:16 Subjective Patient remains severely ill. not making progress Currently on 100% FiO2 via BiPAP and 100% FiO2 with Vapotherm with O2 saturation of 90% Vitals Vital Signs Date Time Temp Pulse Resp B/P (MAP) Pulse Ox O2 Delivery O2 Flow Rate FiO2 09/12/21 08:03 80 BiPAP/CPAP 09/12/21 08:00 40.0 09/12/21 07:00 96.4 101 41 121/70 (87) 96.4 Comments Visual exam done due to COVID-19 pandemia. on bipap no distress RRR no accessory muscle use Trace pitting edema Labs Laboratory Tests Test 09/10/21 11:51 09/10/21 16:48 09/10/21 20:56 09/11/21 07:41 Glucose (Fingerstick) 165 mg/dL (70-99) 142 mg/dL (70-99) 128 mg/dL (70-99) 144 mg/dL (70-99) Test 09/11/21 11:25 09/11/21 16:48 09/11/21 20:20 09/12/21 07:48 Glucose (Fingerstick) 140 mg/dL (70-99) 137 mg/dL (70-99) 130 mg/dL (70-99) 157 mg/dL (70-99) Laboratory Tests Test 09/11/21 11:25 09/11/21 16:48 09/11/21 20:20 09/12/21 07:48 Glucose (Fingerstick) 140 mg/dL (70-99) 137 mg/dL (70-99) 130 mg/dL (70-99) 157 mg/dL (70-99) Medications Active Scripts Medications Dose Route/Sig Max Daily Dose Days Date Category Vitamin D2 (Ergocalciferol (Vitamin D2)) 1,250 Mcg Capsule 1,250 Mcg PO WEEKLY 08/27/21 Reported Naproxen Cr (Naproxen Sodium) 500 Mg Tbmp.24hr 1 Tab PO BID PRN 30 08/27/21 Reported Gabapentin (Gabapentin) 300 Mg Capsule 300 Mg PO TID 08/27/21 Reported Triamcinolone Acetonide 80 Gm Oint...g. 1 Betty TP BID 08/27/21 Reported Atorvastatin Calcium 40 Mg Tablet 1 Tab PO DAILY 08/27/21 Reported Tizanidine Hcl 4 Mg Tablet 1 Tab PO BID 08/27/21 Reported Oxybutynin Chloride Er (Oxybutynin Chloride) 5 Mg Tab.er.24 1 Tab PO DAILY 08/27/21 Reported Impression . 1. Acute hypoxic respiratory failure secondary to COVID-19 pneumonia/acute lung injury and early ARDS. Requiring Vapotherm and BiPAP at 100%. 2. Abnormal chest x-ray consistent with viral pneumonia. 3. 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 4. History of tobaccoism. Quit 2 years ago. 5. Acute kidney injury versus chronic kidney disease. 6. Increased CPK and troponin level. Plan . prognosis poor. Patient continues to have some use of accessory muscles of respiration. 02 titration to keep sat 90% Currently on 100% FiO2 via Vapotherm and BiPAP. as needed benzodiazepine for anxiety. DNR Continue supportive care. Less likely to survive. rec comfort care measures. Dr. Lewis has made multiple attempts to reach the family but has been unsuccessful. ADIEL CHAIREZ MD Sep 12, 2021 10:17
[2021-09-12 10:47] VITALS: BP 119/74
[2021-09-12] MEDS: IV DEXTROSE 5 %-0.45 % NACL 1,000 ML IV SCH ×2 (11:31→20:00)
--- NOTE | 2021-09-12 13:26 | PDOC ---
[employer] PROGRESS NOTE Date of Service DOS: DATE: 09/12/21 TIME: 13:24 Chief Complaint Chief Complaint Acute hypoxic respiratory failure secondary to COVID-19 pneumonia VIDAL due to vasomotor nephropathy Mildly elevated troponin level suggestive of type II demand ischemia Morbid obesity History of stroke History of Present Illness History of Present Illness 66-year-old female with a past medical history of stroke with left-sided hemiparesis, tobacco misuse and possible COPD who presents events with 2 days of cough, shortness of breath, generalized weakness and fatigue. Patient called EMS for the symptoms and she was saturating at 60% on room air and was placed on 4 L nasal cannula and improved to 94%. Patient is not vaccinated for influenza or Covid. also has similar symptoms. Denies fevers, abdominal pain, chest pain, nausea vomiting or diarrhea or dysuria or hematuria. Patient does not wear any oxygen at home. She quit smoking several years ago, but she denies any known history of pulmonary disease. She had a previous severe stroke with residual left hemiparesis, that is unchanged. She has residual speech difficulty dysarthria which is unchanged as well. She usually goes to [facility] for her care. 09/06: weaknes, confusion, on bipap, cont current 09/07: still too weak, desat when trying to eat, cont the IV nutrition- we have no clinimix or PPN avail. cannot feed herself well, we should try to let her eat some, very weak, Desat when BIPAP off even briefly. discussed benefit of some PO intake with RN 09/08: Seen on BIPAP. Significant O2 desaturations when attempting to eat. Very weak. Severely ill, poor prognosis, she is aware, notes DNR status.Currently on 100% FiO2 via BiPAP and 100% FiO2 with Vapotherm. 09/09: Seen on BiPAP with supplemental 100% FiO2 40 L/min Vapotherm with saturations 87%. Not responding very well. Extremely poor prognosis shared with family. 09/10: Seen bedside on BiPAP supplemental her percent FiO2 40 recruited Vapotherm. Saturations 78%. shared poor prognosis with boyfriend/common law Wilfred son Олег is not answering. Glucose stable. 09/11: Seen bedside on BiPAP with supplemental Vapotherm 100% FiO2 40 L/min O2 saturations are in the mid 50s. She is gasping, is responsive to morphine for air hunger. Contacted her boyfriend Wilfred notes patient has 2 sisters and 4 living sons 1 of which is her primary beneficiary and DPOA who is currently incarcerated. There is a plan for bailing this son out of [facility] today. Family is aware of the grim prognosis and patient's wishes not to have CPR or ventilation and are aware that her is likely imminent. 09/12: Seen bedside on BiPAP supplemental Vapotherm 40% FiO2 40 L/min with O2 saturation 70s. He has been responsive to morphine for air hunger. Unable to lift her head. Has a laceration on her ear from Vapotherm treated locally. Not responsive. Grim prognosis shared with family. A misunderstand of family meeting today to be done at her home rather than at the hospital. We will conference over the phone. Patient had made her wishes clear for several days that she did not wish for intubation or resuscitative efforts if her heart is to stop and this was communicated to me on 09/08/2021 which was the last time I was able to have a conversation with her. Has been obtunded since then Vitals/I&O Vitals/I&O: Vital Signs Date Time Temp Pulse Resp B/P (MAP) Pulse Ox O2 Delivery O2 Flow Rate FiO2 09/12/21 11:54 77 40.0 09/12/21 11:34 BiPAP/CPAP 09/12/21 10:47 97.9 101 36 119/74 (89) 97.9 I & O 09/11/21 09/11/21 09/12/21 15:00 23:00 07:00 Intake Total 0 ml Output Total 350 ml 150 ml Balance -350 ml -150 ml Physical Exam General: severe distress, Other (confused, ) Heart: Regular rate Abdomen: Normal bowel sounds Extremities: No clubbing Skin: No rashes Labs Labs: Laboratory Tests Test 09/11/21 16:48 09/11/21 20:20 09/12/21 07:48 09/12/21 11:41 Glucose (Fingerstick) 137 mg/dL (70-99) 130 mg/dL (70-99) 157 mg/dL (70-99) 131 mg/dL (70-99) Assessment and Plan Assessmemt and Plan Problems Medical Problems: (1) COVID-19 Status: Acute (2) Pneumonia due to COVID-19 virus Status: Acute (3) Respiratory failure with hypoxia Status: Acute Comment Review of Relevant I have reviewed the following items allyn (where applicable) has been applied. Justifications for Admission Other Justification COVID-19 positive test (U07.1, COVID-19) with Acute Pneumonia (J12.89, Other viral pneumonia) (If respiratory failure or sepsis present, add as separate assessment) SIENA FONTENOT MD Sep 12, 2021 13:26
--- NOTE | 2021-09-12 14:33 | NUR ---
Wound Care Wound Type/Assessment: Consult to eval and treat pressure wounds to posterior ears. Pt is C19+ and has been on the vapotherm at 100%, per Livier MACHADO, sats have been dropping into the 40-50% range for over 24 hours. Pt is a chemical code only. At time of assessment, pt was experiencing respiratory instability. Only her ears were able to be assessed, and are ST III pressure ulcers. Vapotherm tubing taped over foam dressings on pt cheeks. Both wound bases have slough present with pink, granular edges and pale pink periwound. Treatment Recommendations/Plan: Bilateral ears: Apply xeroform gauze, pad with 4x4's, secure with tape. Change every 2-3 days. Education provided: Pt LOC inappropriate for education at this time. Offloading surface/device: Wedge and pillows for positioning and comfort. Recommended Referrals/Tests: NA Discharge Recommendations for dressings: Continue as above. Pt condition extremely unstable. Wound care palliative at this time.
[2021-09-12 15:00] VITALS: BP 108/63
[2021-09-12 19:16] VITALS: BP 127/82
[2021-09-12] MEDS: STERILE WATER for RESP 1,000 ML BAG. INH PRN (22:10)
[2021-09-12 22:27] VITALS: BP 139/70
[2021-09-13] MEDS: MORPHINE SULFATE 2 MG/ML INJ. IV PRN ×4 (01:02→23:38)
[2021-09-13 02:16] VITALS: BP 139/76
[2021-09-13] MEDS: IV DEXTROSE 5 %-0.45 % NACL 1,000 ML IV SCH ×2 (06:34→16:00)
[2021-09-13 07:30] VITALS: BP 92/58
[2021-09-13] MEDS: INSULIN LISPRO 300 UNITS/3 ML VIAL. SQ SCH ×3 (08:00→17:00)
[2021-09-13] MEDS: PANTOPRAZOLE IV PUSH 40 MG VIAL. IVP SCH (08:56)
[2021-09-13] MEDS: ENOXAPARIN 40 MG/0.4 ML SYRINGE. SQ SCH ×2 (08:56→20:14)
[2021-09-13] MEDS: ASCORBIC ACID 1,000 MG TABLET PO SCH ×3 (09:00→20:12)
[2021-09-13] MEDS: THIAMINE 100 MG TABLET. PO SCH (09:00)
[2021-09-13] MEDS: LISINOPRIL 20 MG TABLET PO SCH (09:00)
[2021-09-13] MEDS: GABAPENTIN 300 MG CAPSULE. PO SCH ×3 (09:00→20:12)
[2021-09-13] MEDS: NYSTATIN TOPICAL POWDER 15GM BOTTLE. TP SCH ×2 (09:00→20:12)
[2021-09-13] MEDS: ZINC SULFATE 220 MG CAPSULE. PO SCH (09:00)
[2021-09-13 11:04] VITALS: BP 113/66
--- NOTE | 2021-09-13 13:36 | PDOC ---
[employer] PROGRESS NOTE Date of Service DOS: DATE: 09/13/21 TIME: 13:36 Chief Complaint Chief Complaint Acute hypoxic respiratory failure secondary to COVID-19 pneumonia VIDAL due to vasomotor nephropathy Mildly elevated troponin level suggestive of type II demand ischemia Morbid obesity History of stroke History of Present Illness History of Present Illness 66-year-old female with a past medical history of stroke with left-sided hemiparesis, tobacco misuse and possible COPD who presents events with 2 days of cough, shortness of breath, generalized weakness and fatigue. Patient called EMS for the symptoms and she was saturating at 60% on room air and was placed on 4 L nasal cannula and improved to 94%. Patient is not vaccinated for influenza or Covid. also has similar symptoms. Denies fevers, abdominal pain, chest pain, nausea vomiting or diarrhea or dysuria or hematuria. Patient does not wear any oxygen at home. She quit smoking several years ago, but she denies any known history of pulmonary disease. She had a previous severe stroke with residual left hemiparesis, that is unchanged. She has residual speech difficulty dysarthria which is unchanged as well. She usually goes to [facility] for her care. 09/06: weaknes, confusion, on bipap, cont current 09/07: still too weak, desat when trying to eat, cont the IV nutrition- we have no clinimix or PPN avail. cannot feed herself well, we should try to let her eat some, very weak, Desat when BIPAP off even briefly. discussed benefit of some PO intake with RN 09/08: Seen on BIPAP. Significant O2 desaturations when attempting to eat. Very weak. Severely ill, poor prognosis, she is aware, notes DNR status.Currently on 100% FiO2 via BiPAP and 100% FiO2 with Vapotherm. 09/09: Seen on BiPAP with supplemental 100% FiO2 40 L/min Vapotherm with saturations 87%. Not responding very well. Extremely poor prognosis shared with family. 09/10: Seen bedside on BiPAP supplemental her percent FiO2 40 recruited Vapotherm. Saturations 78%. shared poor prognosis with boyfriend/common law Wilfred son Олег is not answering. Glucose stable. 09/11: Seen bedside on BiPAP with supplemental Vapotherm 100% FiO2 40 L/min O2 saturations are in the mid 50s. She is gasping, is responsive to morphine for air hunger. Contacted her boyfriend Wilfred notes patient has 2 sisters and 4 living sons 1 of which is her primary beneficiary and DPOA who is currently incarcerated. There is a plan for bailing this son out of correction today. Family is aware of the grim prognosis and patient's wishes not to have CPR or ventilation and are aware that her is likely imminent. 09/12: Seen bedside on BiPAP supplemental Vapotherm 40% FiO2 40 L/min with O2 saturation 70s. He has been responsive to morphine for air hunger. Unable to lift her head. Has a laceration on her ear from Vapotherm treated locally. Not responsive. Grim prognosis shared with family. A misunderstand of family meeting today to be done at her home rather than at the hospital. We will conference over the phone. Patient had made her wishes clear for several days that she did not wish for intubation or resuscitative efforts if her heart is to stop and this was communicated to me on 09/08/2021 which was the last time I was able to have a conversation with her. Has been obtunded since then 09/13: Seen bedside on BiPAP. Vapotherm FiO2 40 L/min with O2 saturations in the upper 70s. Responding well to morphine for air hunger. She was advised to sternal rub but not communicating. Vitals/I&O Vitals/I&O: Vital Signs Date Time Temp Pulse Resp B/P (MAP) Pulse Ox O2 Delivery O2 Flow Rate FiO2 09/13/21 11:28 85 BiPAP/CPAP 09/13/21 11:04 97.9 94 40 113/66 (82) 40.0 97.9 I & O 09/12/21 09/12/21 09/13/21 15:00 23:00 07:00 Intake Total 0 ml 0 ml Output Total 200 ml Balance 0 ml -200 ml Physical Exam General: severe distress, Other (confused, ) Heart: Regular rate Abdomen: Normal bowel sounds Extremities: No clubbing Skin: No rashes Labs Labs: Laboratory Tests Test 09/12/21 17:13 09/12/21 20:21 09/13/21 11:08 Glucose (Fingerstick) 160 mg/dL (70-99) 129 mg/dL (70-99) 114 mg/dL (70-99) Assessment and Plan Assessmemt and Plan Problems Medical Problems: (1) COVID-19 Status: Acute (2) Pneumonia due to COVID-19 virus Status: Acute (3) Respiratory failure with hypoxia Status: Acute Comment Review of Relevant I have reviewed the following items allyn (where applicable) has been applied. Medications: Current Medications Medications (Trade) Dose Ordered Sig/Alex Route PRN Reason Start Time Stop Time Status Last Admin Dose Admin Sterile Water (WATER for RESP) 1,000 ml CONT PRN INH VIA VAPOTHERM DEVICE 09/12/21 21:15 09/12/21 22:10 Justifications for Admission Other Justification COVID-19 positive test (U07.1, COVID-19) with Acute Pneumonia (J12.89, Other viral pneumonia) (If respiratory failure or sepsis present, add as separate assessment) SIENA FONTENOT MD Sep 13, 2021 13:36
[2021-09-13 14:46] VITALS: BP 110/58
[2021-09-13 19:33] VITALS: BP 136/82
[2021-09-13 23:37] VITALS: BP 113/61
[2021-09-14] MEDS: IV DEXTROSE 5 %-0.45 % NACL 1,000 ML IV SCH ×3 (02:00→22:00)
[2021-09-14 03:39] VITALS: BP 144/76
[2021-09-14] MEDS: MORPHINE SULFATE 2 MG/ML INJ. IV PRN ×3 (04:55→21:13)
[2021-09-14] MEDS: STERILE WATER for RESP 1,000 ML BAG. INH PRN ×2 (05:38→18:20)
[2021-09-14 05:43] LABS: ALBUMIN/GLOBULIN RATIO 0.4 (1.0-1.7); CALCIUM 8.8 mg/dL (8.5-10.1); CREATININE 1.1 mg/dL (0.6-1.0); GFR 60.5; POTASSIUM 3.1 mmol/L (3.5-5.1); TOTAL BILIRUBIN 0.8 mg/dL (0.2-1.0); TOTAL PROTEIN 7.5 g/dL (6.4-8.2)
[2021-09-14 07:00] VITALS: BP 139/69
[2021-09-14] MEDS: INSULIN LISPRO 300 UNITS/3 ML VIAL. SQ SCH ×3 (08:00→17:00)
[2021-09-14] MEDS: ENOXAPARIN 40 MG/0.4 ML SYRINGE. SQ SCH ×2 (08:16→21:00)
[2021-09-14] MEDS: PANTOPRAZOLE IV PUSH 40 MG VIAL. IVP SCH (08:16)
[2021-09-14] MEDS: THIAMINE 100 MG TABLET. PO SCH (09:00)
[2021-09-14] MEDS: ZINC SULFATE 220 MG CAPSULE. PO SCH (09:00)
[2021-09-14] MEDS: LISINOPRIL 20 MG TABLET PO SCH (09:00)
[2021-09-14] MEDS: GABAPENTIN 300 MG CAPSULE. PO SCH ×3 (09:00→21:00)
[2021-09-14] MEDS: ASCORBIC ACID 1,000 MG TABLET PO SCH ×3 (09:00→21:00)
[2021-09-14] MEDS: NYSTATIN TOPICAL POWDER 15GM BOTTLE. TP SCH ×2 (09:00→21:00)
[2021-09-14 11:10] VITALS: BP 134/74
[2021-09-14 15:00] VITALS: BP 136/66
--- NOTE | 2021-09-14 15:21 | PDOC ---
[employer] PROGRESS NOTE Date of Service DOS: DATE: 09/14/21 TIME: 15:19 Chief Complaint Chief Complaint Acute hypoxic respiratory failure secondary to COVID-19 pneumonia VIDAL due to vasomotor nephropathy Mildly elevated troponin level suggestive of type II demand ischemia Morbid obesity History of stroke History of Present Illness History of Present Illness 66-year-old female with a past medical history of stroke with left-sided hemiparesis, tobacco misuse and possible COPD who presents events with 2 days of cough, shortness of breath, generalized weakness and fatigue. Patient called EMS for the symptoms and she was saturating at 60% on room air and was placed on 4 L nasal cannula and improved to 94%. Patient is not vaccinated for influenza or Covid. also has similar symptoms. Denies fevers, abdominal pain, chest pain, nausea vomiting or diarrhea or dysuria or hematuria. Patient does not wear any oxygen at home. She quit smoking several years ago, but she denies any known history of pulmonary disease. She had a previous severe stroke with residual left hemiparesis, that is unchanged. She has residual speech difficulty dysarthria which is unchanged as well. She usually goes to [facility] for her care. 09/06: weaknes, confusion, on bipap, cont current 09/07: still too weak, desat when trying to eat, cont the IV nutrition- we have no clinimix or PPN avail. cannot feed herself well, we should try to let her eat some, very weak, Desat when BIPAP off even briefly. discussed benefit of some PO intake with RN 09/08: Seen on BIPAP. Significant O2 desaturations when attempting to eat. Very weak. Severely ill, poor prognosis, she is aware, notes DNR status.Currently on 100% FiO2 via BiPAP and 100% FiO2 with Vapotherm. 09/09: Seen on BiPAP with supplemental 100% FiO2 40 L/min Vapotherm with saturations 87%. Not responding very well. Extremely poor prognosis shared with family. 09/10: Seen bedside on BiPAP supplemental her percent FiO2 40 recruited Vapotherm. Saturations 78%. shared poor prognosis with boyfriend/common law Wilfred son Олег is not answering. Glucose stable. 09/11: Seen bedside on BiPAP with supplemental Vapotherm 100% FiO2 40 L/min O2 saturations are in the mid 50s. She is gasping, is responsive to morphine for air hunger. Contacted her boyfriend Wilfred notes patient has 2 sisters and 4 living sons 1 of which is her primary beneficiary and DPOA who is currently incarcerated. There is a plan for bailing this son out of [place] today. Family is aware of the grim prognosis and patient's wishes not to have CPR or ventilation and are aware that her is likely imminent. 09/12: Seen bedside on BiPAP supplemental Vapotherm 40% FiO2 40 L/min with O2 saturation 70s. He has been responsive to morphine for air hunger. Unable to lift her head. Has a laceration on her ear from Vapotherm treated locally. Not responsive. Grim prognosis shared with family. A misunderstand of family meeting today to be done at her home rather than at the hospital. We will conference over the phone. Patient had made her wishes clear for several days that she did not wish for intubation or resuscitative efforts if her heart is to stop and this was communicated to me on 09/08/2021 which was the last time I was able to have a conversation with her. Has been obtunded since then 09/13: Seen bedside on BiPAP. Vapotherm FiO2 40 L/min with O2 saturations in the upper 70s. Responding well to morphine for air hunger. She was advised to sternal rub but not communicating. 09/14: Seen bedside on BiPAP with Vapotherm FiO2 40 L/min with O2 saturations in the 50s she continues to remove her BiPAP and the only word she uses is "hungry". Boyfriend Wilfred notes he would like someone to come to their house for a family meeting. Have offered telephone discussion with the family or to come into the hospital to discuss end-of-life care options. He says that hoping she "pulls through". She is not able to communicate well anymore. Grim prognosis Vitals/I&O Vitals/I&O: Vital Signs Date Time Temp Pulse Resp B/P (MAP) Pulse Ox O2 Delivery O2 Flow Rate FiO2 09/14/21 13:53 79 BiPAP/CPAP 09/14/21 11:10 97.3 95 40 134/74 (94) 40.0 97.3 I & O 09/13/21 09/13/21 09/14/21 15:00 23:00 07:00 Intake Total 0 ml 0 ml Output Total 400 ml 400 ml Balance 0 ml -400 ml -400 ml Physical Exam General: severe distress, Other (confused, ) Heart: Regular rate Abdomen: Normal bowel sounds Extremities: No clubbing Skin: No rashes Labs Labs: Laboratory Tests Test 09/13/21 21:04 09/14/21 04:30 09/14/21 11:48 Glucose (Fingerstick) 134 mg/dL (70-99) 129 mg/dL (70-99) Sodium Level 149 mmol/L (136-145) Potassium Level 3.1 mmol/L (3.5-5.1) Chloride Level 109 mmol/L (98-107) Carbon Dioxide Level 29 mmol/L (21-32) Anion Gap 11 (6-14) Blood Urea Nitrogen 23 mg/dL (7-20) Creatinine 1.1 mg/dL (0.6-1.0) Estimated GFR (Cockcroft-Gault) 60.5 BUN/Creatinine Ratio 21 (6-20) Glucose Level 123 mg/dL (70-99) Calcium Level 8.8 mg/dL (8.5-10.1) Total Bilirubin 0.8 mg/dL (0.2-1.0) Aspartate Amino Transf (AST/SGOT) 23 U/L (15-37) Alanine Aminotransferase (ALT/SGPT) 15 U/L (14-59) Alkaline Phosphatase 153 U/L (46-116) Total Protein 7.5 g/dL (6.4-8.2) Albumin 2.0 g/dL (3.4-5.0) Albumin/Globulin Ratio 0.4 (1.0-1.7) Assessment and Plan Assessmemt and Plan Problems Medical Problems: (1) COVID-19 Status: Acute (2) Pneumonia due to COVID-19 virus Status: Acute (3) Respiratory failure with hypoxia Status: Acute Comment Review of Relevant I have reviewed the following items allyn (where applicable) has been applied. Justifications for Admission Other Justification COVID-19 positive test (U07.1, COVID-19) with Acute Pneumonia (J12.89, Other viral pneumonia) (If respiratory failure or sepsis present, add as separate assessment) SIENA FONTENOT MD Sep 14, 2021 15:21
[2021-09-14 19:37] VITALS: BP 117/66
[2021-09-14 22:42] VITALS: BP 119/72
[2021-09-15 02:47] VITALS: BP 147/106
[2021-09-15] MEDS: MORPHINE SULFATE 2 MG/ML INJ. IV PRN ×3 (06:13→22:39)
[2021-09-15 07:00] VITALS: BP 153/88
[2021-09-15] MEDS: PANTOPRAZOLE IV PUSH 40 MG VIAL. IVP SCH ×2 (07:30→09:36)
[2021-09-15] MEDS: INSULIN LISPRO 300 UNITS/3 ML VIAL. SQ SCH ×3 (07:36→16:35)
[2021-09-15] MEDS: ASCORBIC ACID 1,000 MG TABLET PO SCH ×3 (07:37→20:52)
[2021-09-15] MEDS: ZINC SULFATE 220 MG CAPSULE. PO SCH (07:37)
[2021-09-15] MEDS: GABAPENTIN 300 MG CAPSULE. PO SCH ×3 (07:37→20:52)
[2021-09-15] MEDS: THIAMINE 100 MG TABLET. PO SCH (07:37)
[2021-09-15] MEDS: LISINOPRIL 20 MG TABLET PO SCH (07:37)
[2021-09-15] MEDS: STERILE WATER for RESP 1,000 ML BAG. INH PRN ×2 (09:28→23:45)
[2021-09-15] MEDS: ENOXAPARIN 40 MG/0.4 ML SYRINGE. SQ SCH ×2 (09:35→20:52)
[2021-09-15] MEDS: NYSTATIN TOPICAL POWDER 15GM BOTTLE. TP SCH ×2 (09:36→20:52)
[2021-09-15 10:34] VITALS: BP 147/80
--- NOTE | 2021-09-15 11:13 | PDOC ---
[employer] PROGRESS NOTE Date of Service DOS: DATE: 09/15/21 TIME: 11:10 Chief Complaint Chief Complaint Acute hypoxic respiratory failure secondary to COVID-19 pneumonia VIDAL due to vasomotor nephropathy Mildly elevated troponin level suggestive of type II demand ischemia Morbid obesity History of stroke History of Present Illness History of Present Illness 66-year-old female with a past medical history of stroke with left-sided hemiparesis, tobacco misuse and possible COPD who presents events with 2 days of cough, shortness of breath, generalized weakness and fatigue. Patient called EMS for the symptoms and she was saturating at 60% on room air and was placed on 4 L nasal cannula and improved to 94%. Patient is not vaccinated for influenza or Covid. also has similar symptoms. Denies fevers, abdominal pain, chest pain, nausea vomiting or diarrhea or dysuria or hematuria. Patient does not wear any oxygen at home. She quit smoking several years ago, but she denies any known history of pulmonary disease. She had a previous severe stroke with residual left hemiparesis, that is unchanged. She has residual speech difficulty dysarthria which is unchanged as well. She usually goes to [facility] for her care. 09/06: weaknes, confusion, on bipap, cont current 09/07: still too weak, desat when trying to eat, cont the IV nutrition- we have no clinimix or PPN avail. cannot feed herself well, we should try to let her eat some, very weak, Desat when BIPAP off even briefly. discussed benefit of some PO intake with RN 09/08: Seen on BIPAP. Significant O2 desaturations when attempting to eat. Very weak. Severely ill, poor prognosis, she is aware, notes DNR status.Currently on 100% FiO2 via BiPAP and 100% FiO2 with Vapotherm. 09/09: Seen on BiPAP with supplemental 100% FiO2 40 L/min Vapotherm with saturations 87%. Not responding very well. Extremely poor prognosis shared with family. 09/10: Seen bedside on BiPAP supplemental her percent FiO2 40 recruited Vapotherm. Saturations 78%. shared poor prognosis with boyfriend/common law Wilfred son Олег is not answering. Glucose stable. 09/11: Seen bedside on BiPAP with supplemental Vapotherm 100% FiO2 40 L/min O2 saturations are in the mid 50s. She is gasping, is responsive to morphine for air hunger. Contacted her boyfriend Wilfred notes patient has 2 sisters and 4 living sons 1 of which is her primary beneficiary and DPOA who is currently incarcerated. There is a plan for bailing this son out of retirement today. Family is aware of the grim prognosis and patient's wishes not to have CPR or ventilation and are aware that her is likely imminent. 09/12: Seen bedside on BiPAP supplemental Vapotherm 40% FiO2 40 L/min with O2 saturation 70s. He has been responsive to morphine for air hunger. Unable to lift her head. Has a laceration on her ear from Vapotherm treated locally. Not responsive. Grim prognosis shared with family. A misunderstand of family meeting today to be done at her home rather than at the hospital. We will conference over the phone. Patient had made her wishes clear for several days that she did not wish for intubation or resuscitative efforts if her heart is to stop and this was communicated to me on 09/08/2021 which was the last time I was able to have a conversation with her. Has been obtunded since then 09/13: Seen bedside on BiPAP. Vapotherm FiO2 40 L/min with O2 saturations in the upper 70s. Responding well to morphine for air hunger. She was advised to sternal rub but not communicating. 09/14: Seen bedside on BiPAP with Vapotherm FiO2 40 L/min with O2 saturations in the 50s she continues to remove her BiPAP and the only word she uses is "hungry". Boyfriend Wilfred notes he would like someone to come to their house for a family meeting. Have offered telephone discussion with the family or to come into the hospital to discuss end-of-life care options. He says that hoping she "pulls through". She is not able to communicate well anymore. Grim prognosis 09/15 Evaluated examined at bedside still on BiPAP was kind of flailing around the bed when I saw her. Unable to communicate. Poor prognosis overall. We will try to contact family again today to address goals Vitals/I&O Vitals/I&O: Vital Signs Date Time Temp Pulse Resp B/P (MAP) Pulse Ox O2 Delivery O2 Flow Rate FiO2 09/15/21 10:34 99.2 96 40 147/80 (102) 70 vapotherm & Bipap @ 100 % 40.0 99.2 I & O 09/14/21 09/14/21 09/15/21 15:00 23:00 07:00 Output Total 400 ml Balance -400 ml Physical Exam General: severe distress, Other (confused, ) Heart: Regular rate Abdomen: Normal bowel sounds Extremities: No clubbing Skin: No rashes Labs Labs: Laboratory Tests Test 09/14/21 11:48 09/14/21 16:42 09/14/21 20:44 09/15/21 07:38 Glucose (Fingerstick) 129 mg/dL (70-99) 125 mg/dL (70-99) 121 mg/dL (70-99) 147 mg/dL (70-99) Assessment and Plan Assessmemt and Plan Problems Medical Problems: (1) COVID-19 Status: Acute (2) Pneumonia due to COVID-19 virus Status: Acute (3) Respiratory failure with hypoxia Status: Acute Comment Review of Relevant I have reviewed the following items allyn (where applicable) has been applied. Justifications for Admission Other Justification COVID-19 positive test (U07.1, COVID-19) with Acute Pneumonia (J12.89, Other viral pneumonia) (If respiratory failure or sepsis present, add as separate assessment) SIENA IRAHETA MD Sep 15, 2021 11:13
--- NOTE | 2021-09-15 14:21 | NUR ---
SS following up with discharge planning. SS reviewed pt chart and discussed with pt RN. Pt is currently on Vapotherm and BIPAP at 100%. COVID19 positive. Chemical Code only. Physicians continuing to discuss goals of care with pt's family. Not stable. SS will continue to follow for discharge planning.
[2021-09-15 15:00] VITALS: BP 152/83
[2021-09-15] MEDS: IV DEXTROSE 5 %-0.45 % NACL 1,000 ML IV SCH ×2 (15:14→18:00)
--- NOTE | 2021-09-15 19:03 | NUR ---
Wilfred () called wanting to speak with someone regarding DPOA. Past on in report to n/s so he can speak with britany green
[2021-09-15 19:49] VITALS: BP 179/88
[2021-09-15 22:50] VITALS: BP 149/76
[2021-09-15] MEDS: diphenhydrAMINE 50 MG/ML VIAL IVP PRN (22:52)
[2021-09-16] MEDS: MORPHINE SULFATE 2 MG/ML INJ. IV PRN ×3 (01:40→16:51)
[2021-09-16 02:53] VITALS: BP 146/78
[2021-09-16] MEDS: IV DEXTROSE 5 %-0.45 % NACL 1,000 ML IV SCH ×2 (03:59→14:20)
[2021-09-16 07:00] VITALS: BP 139/82
[2021-09-16] MEDS: INSULIN LISPRO 300 UNITS/3 ML VIAL. SQ SCH ×3 (08:00→17:00)
[2021-09-16] MEDS: ZINC SULFATE 220 MG CAPSULE. PO SCH (08:22)
[2021-09-16] MEDS: THIAMINE 100 MG TABLET. PO SCH (08:22)
[2021-09-16] MEDS: GABAPENTIN 300 MG CAPSULE. PO SCH ×3 (08:22→21:00)
[2021-09-16] MEDS: LISINOPRIL 20 MG TABLET PO SCH (08:22)
[2021-09-16] MEDS: ASCORBIC ACID 1,000 MG TABLET PO SCH ×3 (08:23→21:00)
[2021-09-16] MEDS: ENOXAPARIN 40 MG/0.4 ML SYRINGE. SQ SCH ×2 (08:24→20:56)
[2021-09-16] MEDS: PANTOPRAZOLE IV PUSH 40 MG VIAL. IVP SCH (08:25)
[2021-09-16 10:58] VITALS: BP 115/66
--- NOTE | 2021-09-16 11:49 | PDOC ---
[employer] PROGRESS NOTE Date of Service DOS: DATE: 09/16/21 TIME: 11:48 Chief Complaint Chief Complaint Acute hypoxic respiratory failure secondary to COVID-19 pneumonia VIDAL due to vasomotor nephropathy Mildly elevated troponin level suggestive of type II demand ischemia Morbid obesity History of stroke History of Present Illness History of Present Illness 66-year-old female with a past medical history of stroke with left-sided hemiparesis, tobacco misuse and possible COPD who presents events with 2 days of cough, shortness of breath, generalized weakness and fatigue. Patient called EMS for the symptoms and she was saturating at 60% on room air and was placed on 4 L nasal cannula and improved to 94%. Patient is not vaccinated for influenza or Covid. also has similar symptoms. Denies fevers, abdominal pain, chest pain, nausea vomiting or diarrhea or dysuria or hematuria. Patient does not wear any oxygen at home. She quit smoking several years ago, but she denies any known history of pulmonary disease. She had a previous severe stroke with residual left hemiparesis, that is unchanged. She has residual speech difficulty dysarthria which is unchanged as well. She usually goes to [facility] for her care. 09/06: weaknes, confusion, on bipap, cont current 09/07: still too weak, desat when trying to eat, cont the IV nutrition- we have no clinimix or PPN avail. cannot feed herself well, we should try to let her eat some, very weak, Desat when BIPAP off even briefly. discussed benefit of some PO intake with RN 09/08: Seen on BIPAP. Significant O2 desaturations when attempting to eat. Very weak. Severely ill, poor prognosis, she is aware, notes DNR status.Currently on 100% FiO2 via BiPAP and 100% FiO2 with Vapotherm. 09/09: Seen on BiPAP with supplemental 100% FiO2 40 L/min Vapotherm with saturations 87%. Not responding very well. Extremely poor prognosis shared with family. 09/10: Seen bedside on BiPAP supplemental her percent FiO2 40 recruited Vapotherm. Saturations 78%. shared poor prognosis with boyfriend/common law Wilfred son Олег is not answering. Glucose stable. 09/11: Seen bedside on BiPAP with supplemental Vapotherm 100% FiO2 40 L/min O2 saturations are in the mid 50s. She is gasping, is responsive to morphine for air hunger. Contacted her boyfriend Wilfred notes patient has 2 sisters and 4 living sons 1 of which is her primary beneficiary and DPOA who is currently incarcerated. There is a plan for bailing this son out of [facility] today. Family is aware of the grim prognosis and patient's wishes not to have CPR or ventilation and are aware that her is likely imminent. 09/12: Seen bedside on BiPAP supplemental Vapotherm 40% FiO2 40 L/min with O2 saturation 70s. He has been responsive to morphine for air hunger. Unable to lift her head. Has a laceration on her ear from Vapotherm treated locally. Not responsive. Grim prognosis shared with family. A misunderstand of family meeting today to be done at her home rather than at the hospital. We will conference over the phone. Patient had made her wishes clear for several days that she did not wish for intubation or resuscitative efforts if her heart is to stop and this was communicated to me on 09/08/2021 which was the last time I was able to have a conversation with her. Has been obtunded since then 09/13: Seen bedside on BiPAP. Vapotherm FiO2 40 L/min with O2 saturations in the upper 70s. Responding well to morphine for air hunger. She was advised to sternal rub but not communicating. 09/14: Seen bedside on BiPAP with Vapotherm FiO2 40 L/min with O2 saturations in the 50s she continues to remove her BiPAP and the only word she uses is "hungry". Boyfriend Wilfred notes he would like someone to come to their house for a family meeting. Have offered telephone discussion with the family or to come into the hospital to discuss end-of-life care options. He says that hoping she "pulls through". She is not able to communicate well anymore. Grim prognosis 09/15 Evaluated examined at bedside still on BiPAP was kind of flailing around the bed when I saw her. Unable to communicate. Poor prognosis overall. We will try to contact family again today to address goals. 09/16 Patient evaluated examined at bedside. Still on BiPAP and Vapotherm. Saturating in mid 80s when I evaluated her. Still cannot really interact with her. Poor prognosis. Vitals/I&O Vitals/I&O: Vital Signs Date Time Temp Pulse Resp B/P (MAP) Pulse Ox O2 Delivery O2 Flow Rate FiO2 09/16/21 10:58 99.2 92 34 115/66 (82) 83 vapotherm & bipap @ 100% 40.0 99.2 I & O 09/15/21 09/15/21 09/16/21 15:00 23:00 07:00 Intake Total 0 ml 905 ml Output Total 350 ml 350 ml Balance 0 ml 555 ml -350 ml Physical Exam General: moderate distress, Other (confused, ) Heart: Regular rate Lungs: Other (decreased, vapotherm, bipap on) Abdomen: Normal bowel sounds Extremities: No clubbing Skin: No rashes Labs Labs: Laboratory Tests Test 09/15/21 16:17 09/15/21 21:08 09/16/21 11:17 Glucose (Fingerstick) 130 mg/dL (70-99) 116 mg/dL (70-99) 90 mg/dL (70-99) Assessment and Plan Assessmemt and Plan Problems Medical Problems: (1) COVID-19 Status: Acute (2) Pneumonia due to COVID-19 virus Status: Acute (3) Respiratory failure with hypoxia Status: Acute Comment Review of Relevant I have reviewed the following items allyn (where applicable) has been applied. Justifications for Admission Other Justification COVID-19 positive test (U07.1, COVID-19) with Acute Pneumonia (J12.89, Other viral pneumonia) (If respiratory failure or sepsis present, add as separate assessment) SIENA IRAHETA MD Sep 16, 2021 11:49
--- NOTE | 2021-09-16 11:58 | NUR ---
SS following up with discharge planning. SS reviewed pt chart and discussed with pt RN. Pt is currently on Vapotherm and BIPAP at 100%. COVID19 positive. Chemical Code only. Physicians continuing to discuss goals of care with pt's family. Not stable. Pt's family requesting DPOA paperwork. Pt not alert or stable enough at this time to complete DPOA. SS will continue to follow for discharge planning.
--- NOTE | 2021-09-16 12:19 | NUR ---
changed dressing on wounds behind ear. reapplied foam between mask straps and cheeks.
[2021-09-16] MEDS: NYSTATIN TOPICAL POWDER 15GM BOTTLE. TP SCH ×2 (13:14→21:00)
--- NOTE | 2021-09-16 14:36 | PDOC ---
PULMONARY PROGRESS NOTES DATE: 09/16/21 TIME: 14:35 Subjective Critically ill, currently on 40 L of flow, 100% BiPAP at 20/12 100% FiO2 Vitals Vital Signs Date Time Temp Pulse Resp B/P (MAP) Pulse Ox O2 Delivery O2 Flow Rate FiO2 09/16/21 13:39 84 BiPAP/CPAP 09/16/21 10:58 99.2 92 34 115/66 (82) 40.0 99.2 Comments Visual exam done due to COVID-19 pandemia. on bipap no distress RRR no accessory muscle use Trace pitting edema Lungs: Other (decreased, vapotherm, bipap on) Labs Laboratory Tests Test 09/14/21 16:42 09/14/21 20:44 09/15/21 07:38 09/15/21 11:22 Glucose (Fingerstick) 125 mg/dL (70-99) 121 mg/dL (70-99) 147 mg/dL (70-99) 114 mg/dL (70-99) Test 09/15/21 16:17 09/15/21 21:08 09/16/21 11:17 Glucose (Fingerstick) 130 mg/dL (70-99) 116 mg/dL (70-99) 90 mg/dL (70-99) Laboratory Tests Test 09/15/21 16:17 09/15/21 21:08 09/16/21 11:17 Glucose (Fingerstick) 130 mg/dL (70-99) 116 mg/dL (70-99) 90 mg/dL (70-99) Medications Active Scripts Medications Dose Route/Sig Max Daily Dose Days Date Category Vitamin D2 (Ergocalciferol (Vitamin D2)) 1,250 Mcg Capsule 1,250 Mcg PO WEEKLY 08/27/21 Reported Naproxen Cr (Naproxen Sodium) 500 Mg Tbmp.24hr 1 Tab PO BID PRN 30 08/27/21 Reported Gabapentin (Gabapentin) 300 Mg Capsule 300 Mg PO TID 08/27/21 Reported Triamcinolone Acetonide 80 Gm Oint...g. 1 Betty TP BID 08/27/21 Reported Atorvastatin Calcium 40 Mg Tablet 1 Tab PO DAILY 08/27/21 Reported Tizanidine Hcl 4 Mg Tablet 1 Tab PO BID 08/27/21 Reported Oxybutynin Chloride Er (Oxybutynin Chloride) 5 Mg Tab.er.24 1 Tab PO DAILY 08/27/21 Reported Impression . 1. Acute hypoxic respiratory failure secondary to COVID-19 pneumonia/acute lung injury and early ARDS. Requiring Vapotherm and BiPAP at 100%. 2. Abnormal chest x-ray consistent with viral pneumonia. 3. 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 4. History of tobaccoism. Quit 2 years ago. 5. Acute kidney injury versus chronic kidney disease. 6. Increased CPK and troponin level. Plan . Updated 09/16 Continue current support Prognosis is poor We will discussed with hospitalist JULIETH TORRES MD Sep 16, 2021 14:35
[2021-09-16 15:00] VITALS: BP 114/53
[2021-09-16] MEDS: STERILE WATER for RESP 1,000 ML BAG. INH PRN (15:44)
[2021-09-16 19:41] VITALS: BP 111/61
[2021-09-16 22:28] VITALS: BP 94/49
[2021-09-17] MEDS: IV DEXTROSE 5 %-0.45 % NACL 1,000 ML IV SCH ×3 (00:44→20:20)
[2021-09-17 02:42] VITALS: BP 113/59
[2021-09-17] MEDS: STERILE WATER for RESP 1,000 ML BAG. INH PRN (06:00)
[2021-09-17 06:18] VITALS: BP 118/63
[2021-09-17] MEDS: PANTOPRAZOLE IV PUSH 40 MG VIAL. IVP SCH (07:56)
[2021-09-17] MEDS: ZINC SULFATE 220 MG CAPSULE. PO SCH (07:56)
[2021-09-17] MEDS: GABAPENTIN 300 MG CAPSULE. PO SCH ×3 (07:56→21:00)
[2021-09-17] MEDS: LISINOPRIL 20 MG TABLET PO SCH (07:56)
[2021-09-17] MEDS: INSULIN LISPRO 300 UNITS/3 ML VIAL. SQ SCH ×3 (07:56→17:00)
[2021-09-17] MEDS: THIAMINE 100 MG TABLET. PO SCH (07:57)
[2021-09-17] MEDS: NYSTATIN TOPICAL POWDER 15GM BOTTLE. TP SCH ×2 (07:57→21:00)
[2021-09-17] MEDS: ASCORBIC ACID 1,000 MG TABLET PO SCH ×3 (07:57→21:00)
[2021-09-17] MEDS: ENOXAPARIN 40 MG/0.4 ML SYRINGE. SQ SCH ×2 (07:57→20:20)
--- NOTE | 2021-09-17 09:46 | PDOC ---
PULMONARY PROGRESS NOTES DATE: 09/17/21 TIME: 09:46 Subjective Patient remains critically ill, at the bedside, Currently on 40 L flow 100% FiO2 in addition to BiPAP 100% FiO2 Vitals Vital Signs Date Time Temp Pulse Resp B/P (MAP) Pulse Ox O2 Delivery O2 Flow Rate FiO2 09/17/21 08:02 83 BiPAP/CPAP 09/17/21 08:00 40.0 09/17/21 06:18 96.6 91 32 118/63 (81) 96.6 General: Alert Lungs: Crackles Cardiovascular: S1, S2, Other Abdomen: Other (Obese) Neuro Exam: Alert Extremities: Other (Edema) Skin: Warm Labs Laboratory Tests Test 09/15/21 11:22 09/15/21 16:17 09/15/21 21:08 09/16/21 11:17 Glucose (Fingerstick) 114 mg/dL (70-99) 130 mg/dL (70-99) 116 mg/dL (70-99) 90 mg/dL (70-99) Test 09/16/21 16:53 09/16/21 20:51 09/17/21 07:45 Glucose (Fingerstick) 118 mg/dL (70-99) 119 mg/dL (70-99) 111 mg/dL (70-99) Laboratory Tests Test 09/16/21 11:17 09/16/21 16:53 09/16/21 20:51 09/17/21 07:45 Glucose (Fingerstick) 90 mg/dL (70-99) 118 mg/dL (70-99) 119 mg/dL (70-99) 111 mg/dL (70-99) Medications Active Scripts Medications Dose Route/Sig Max Daily Dose Days Date Category Vitamin D2 (Ergocalciferol (Vitamin D2)) 1,250 Mcg Capsule 1,250 Mcg PO WEEKLY 08/27/21 Reported Naproxen Cr (Naproxen Sodium) 500 Mg Tbmp.24hr 1 Tab PO BID PRN 30 08/27/21 Reported Gabapentin (Gabapentin) 300 Mg Capsule 300 Mg PO TID 08/27/21 Reported Triamcinolone Acetonide 80 Gm Oint...g. 1 Betty TP BID 08/27/21 Reported Atorvastatin Calcium 40 Mg Tablet 1 Tab PO DAILY 08/27/21 Reported Tizanidine Hcl 4 Mg Tablet 1 Tab PO BID 08/27/21 Reported Oxybutynin Chloride Er (Oxybutynin Chloride) 5 Mg Tab.er.24 1 Tab PO DAILY 08/27/21 Reported Impression . 1. Acute hypoxic respiratory failure secondary to COVID-19 pneumonia/acute lung injury and early ARDS. Requiring Vapotherm and BiPAP at 100%. 2. Abnormal chest x-ray consistent with viral pneumonia. 3. 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 4. History of tobaccoism. Quit 2 years ago. 5. Acute kidney injury versus chronic kidney disease. 6. Increased CPK and troponin level. Plan . Spoke with at the bedside Continue current support Patient is a DO NOT INTUBATE Patient not expected to survive JULIETH TORRES MD Sep 17, 2021 09:46
--- NOTE | 2021-09-17 10:50 | NUR ---
SS following up with discharge planning. SS reviewed pt chart and discussed with pt RN. Pt is currently on Vapotherm and BIPAP at 100%. COVID19 recovered now. Chemical Code only. Physicians continuing to discuss goals of care with pt's family. Not stable. SS contacted pt's family and notified them that pt is COVID19 recovered. Pt's family reported that they would come at 1200 to set eyes on pt and would like to speak with medical staff at that time. RN and physician notified. SS will continue to follow for discharge planning.
[2021-09-17 10:55] VITALS: BP 136/68
--- NOTE | 2021-09-17 11:48 | PDOC ---
[employer] PROGRESS NOTE Date of Service DOS: DATE: 09/17/21 TIME: 11:47 Chief Complaint Chief Complaint Acute hypoxic respiratory failure secondary to COVID-19 pneumonia VIDAL due to vasomotor nephropathy Mildly elevated troponin level suggestive of type II demand ischemia Morbid obesity History of stroke History of Present Illness History of Present Illness 66-year-old female with a past medical history of stroke with left-sided hemiparesis, tobacco misuse and possible COPD who presents events with 2 days of cough, shortness of breath, generalized weakness and fatigue. Patient called EMS for the symptoms and she was saturating at 60% on room air and was placed on 4 L nasal cannula and improved to 94%. Patient is not vaccinated for influenza or Covid. also has similar symptoms. Denies fevers, abdominal pain, chest pain, nausea vomiting or diarrhea or dysuria or hematuria. Patient does not wear any oxygen at home. She quit smoking several years ago, but she denies any known history of pulmonary disease. She had a previous severe stroke with residual left hemiparesis, that is unchanged. She has residual speech difficulty dysarthria which is unchanged as well. She usually goes to [facility] for her care. 09/06: weaknes, confusion, on bipap, cont current 09/07: still too weak, desat when trying to eat, cont the IV nutrition- we have no clinimix or PPN avail. cannot feed herself well, we should try to let her eat some, very weak, Desat when BIPAP off even briefly. discussed benefit of some PO intake with RN 09/08: Seen on BIPAP. Significant O2 desaturations when attempting to eat. Very weak. Severely ill, poor prognosis, she is aware, notes DNR status.Currently on 100% FiO2 via BiPAP and 100% FiO2 with Vapotherm. 09/09: Seen on BiPAP with supplemental 100% FiO2 40 L/min Vapotherm with saturations 87%. Not responding very well. Extremely poor prognosis shared with family. 09/10: Seen bedside on BiPAP supplemental her percent FiO2 40 recruited Vapotherm. Saturations 78%. shared poor prognosis with boyfriend/common law Wilfred son Олег is not answering. Glucose stable. 09/11: Seen bedside on BiPAP with supplemental Vapotherm 100% FiO2 40 L/min O2 saturations are in the mid 50s. She is gasping, is responsive to morphine for air hunger. Contacted her boyfriend Wilfred notes patient has 2 sisters and 4 living sons 1 of which is her primary beneficiary and DPOA who is currently incarcerated. There is a plan for bailing this son out of senior living today. Family is aware of the grim prognosis and patient's wishes not to have CPR or ventilation and are aware that her is likely imminent. 09/12: Seen bedside on BiPAP supplemental Vapotherm 40% FiO2 40 L/min with O2 saturation 70s. He has been responsive to morphine for air hunger. Unable to lift her head. Has a laceration on her ear from Vapotherm treated locally. Not responsive. Grim prognosis shared with family. A misunderstand of family meeting today to be done at her home rather than at the hospital. We will conference over the phone. Patient had made her wishes clear for several days that she did not wish for intubation or resuscitative efforts if her heart is to stop and this was communicated to me on 09/08/2021 which was the last time I was able to have a conversation with her. Has been obtunded since then 09/13: Seen bedside on BiPAP. Vapotherm FiO2 40 L/min with O2 saturations in the upper 70s. Responding well to morphine for air hunger. She was advised to sternal rub but not communicating. 09/14: Seen bedside on BiPAP with Vapotherm FiO2 40 L/min with O2 saturations in the 50s she continues to remove her BiPAP and the only word she uses is "hungry". Boyfriend Wilfred notes he would like someone to come to their house for a family meeting. Have offered telephone discussion with the family or to come into the hospital to discuss end-of-life care options. He says that hoping she "pulls through". She is not able to communicate well anymore. Grim prognosis 09/15 Evaluated examined at bedside still on BiPAP was kind of flailing around the bed when I saw her. Unable to communicate. Poor prognosis overall. We will try to contact family again today to address goals. 09/16 Patient evaluated examined at bedside. Still on BiPAP and Vapotherm. Saturating in mid 80s when I evaluated her. Still cannot really interact with her. Poor prognosis. 09/17 Evaluated at bedside. Still on very high oxygen settings. Kind of thrashing around in bed we will try some as needed Ativan. Continues to have poor prognosis. Family apparently going to come see at bedside today we will try to discuss with them. Vitals/I&O Vitals/I&O: Vital Signs Date Time Temp Pulse Resp B/P (MAP) Pulse Ox O2 Delivery O2 Flow Rate FiO2 09/17/21 10:55 98.9 95 37 136/68 (90) 74 vapotherm & bipap @ 100% 40.0 98.9 I & O 09/16/21 09/16/21 09/17/21 15:00 23:00 07:00 Intake Total 0 ml 722 ml Output Total 325 ml 650 ml Balance 0 ml 397 ml -650 ml Physical Exam General: moderate distress, Other (confused, ) Heart: Regular rate Lungs: Other (decreased, vapotherm, bipap on) Abdomen: Normal bowel sounds Extremities: No clubbing Skin: No rashes Labs Labs: Laboratory Tests Test 09/16/21 16:53 09/16/21 20:51 09/17/21 07:45 09/17/21 11:19 Glucose (Fingerstick) 118 mg/dL (70-99) 119 mg/dL (70-99) 111 mg/dL (70-99) 108 mg/dL (70-99) Assessment and Plan Assessmemt and Plan Problems Medical Problems: (1) COVID-19 Status: Acute (2) Pneumonia due to COVID-19 virus Status: Acute (3) Respiratory failure with hypoxia Status: Acute Comment Review of Relevant I have reviewed the following items allyn (where applicable) has been applied. Medications: Current Medications Medications (Trade) Dose Ordered Sig/Alex Route PRN Reason Start Time Stop Time Status Last Admin Dose Admin Lorazepam (Ativan Inj) 2 mg PRN Q4HRS PRN IVP ANXIETY / AGITATION 09/17/21 10:30 09/17/21 10:47 Justifications for Admission Other Justification COVID-19 positive test (U07.1, COVID-19) with Acute Pneumonia (J12.89, Other viral pneumonia) (If respiratory failure or sepsis present, add as separate assessment) SIENA IRAHETA MD Sep 17, 2021 11:48
[2021-09-17 14:30] VITALS: BP 140/68
[2021-09-17 19:37] VITALS: BP 118/62
[2021-09-17] MEDS: MORPHINE SULFATE 2 MG/ML INJ. IV PRN (20:21)
[2021-09-17 22:24] VITALS: BP 111/60
[2021-09-18 02:11] VITALS: BP 137/69
[2021-09-18] MEDS: STERILE WATER for RESP 1,000 ML BAG. INH PRN ×2 (03:04→11:51)
[2021-09-18] MEDS: MORPHINE SULFATE 2 MG/ML INJ. IV PRN ×2 (03:11→10:50)
[2021-09-18] MEDS: IV DEXTROSE 5 %-0.45 % NACL 1,000 ML IV SCH ×2 (06:22→16:00)
[2021-09-18 07:00] VITALS: BP 105/51
[2021-09-18] MEDS: GABAPENTIN 300 MG CAPSULE. PO SCH ×3 (07:36→20:10)
[2021-09-18] MEDS: LISINOPRIL 20 MG TABLET PO SCH (07:36)
[2021-09-18] MEDS: ZINC SULFATE 220 MG CAPSULE. PO SCH (07:36)
[2021-09-18] MEDS: THIAMINE 100 MG TABLET. PO SCH (07:36)
[2021-09-18] MEDS: ASCORBIC ACID 1,000 MG TABLET PO SCH ×3 (07:37→20:10)
[2021-09-18] MEDS: INSULIN LISPRO 300 UNITS/3 ML VIAL. SQ SCH ×3 (07:38→17:00)
[2021-09-18] MEDS: PANTOPRAZOLE IV PUSH 40 MG VIAL. IVP SCH (09:00)
[2021-09-18] MEDS: ENOXAPARIN 40 MG/0.4 ML SYRINGE. SQ SCH ×2 (09:00→20:05)
[2021-09-18] MEDS: NYSTATIN TOPICAL POWDER 15GM BOTTLE. TP SCH ×2 (09:00→20:10)
--- NOTE | 2021-09-18 09:19 | PDOC ---
PULMONARY PROGRESS NOTES DATE: 09/18/21 TIME: 09:16 Subjective Patient very uncomfortable, increased work of breathing patient remains critically ill Currently on 40 L flow 100% FiO2 in addition to BiPAP 100% FiO2 with O2 saturation of 75% Vitals Vital Signs Date Time Temp Pulse Resp B/P (MAP) Pulse Ox O2 Delivery O2 Flow Rate FiO2 09/18/21 08:26 77 VAPOTHERM 40.0 09/18/21 02:11 98.4 97 48 137/69 (91) 98.4 General: Lethargic Lungs: Crackles Cardiovascular: S1, S2, Other Abdomen: Other (Obese) Extremities: Other (Edema) Skin: Warm Labs Laboratory Tests Test 09/16/21 11:17 09/16/21 16:53 09/16/21 20:51 09/17/21 07:45 Glucose (Fingerstick) 90 mg/dL (70-99) 118 mg/dL (70-99) 119 mg/dL (70-99) 111 mg/dL (70-99) Test 09/17/21 11:19 09/17/21 20:47 Glucose (Fingerstick) 108 mg/dL (70-99) 114 mg/dL (70-99) Laboratory Tests Test 09/17/21 11:19 09/17/21 20:47 Glucose (Fingerstick) 108 mg/dL (70-99) 114 mg/dL (70-99) Medications Active Scripts Medications Dose Route/Sig Max Daily Dose Days Date Category Vitamin D2 (Ergocalciferol (Vitamin D2)) 1,250 Mcg Capsule 1,250 Mcg PO WEEKLY 08/27/21 Reported Naproxen Cr (Naproxen Sodium) 500 Mg Tbmp.24hr 1 Tab PO BID PRN 30 08/27/21 Reported Gabapentin (Gabapentin) 300 Mg Capsule 300 Mg PO TID 08/27/21 Reported Triamcinolone Acetonide 80 Gm Oint...g. 1 Betty TP BID 08/27/21 Reported Atorvastatin Calcium 40 Mg Tablet 1 Tab PO DAILY 08/27/21 Reported Tizanidine Hcl 4 Mg Tablet 1 Tab PO BID 08/27/21 Reported Oxybutynin Chloride Er (Oxybutynin Chloride) 5 Mg Tab.er.24 1 Tab PO DAILY 08/27/21 Reported Impression . 1. Acute hypoxic respiratory failure secondary to COVID-19 pneumonia/acute lung injury and early ARDS. Requiring Vapotherm and BiPAP at 100%. 2. Abnormal chest x-ray consistent with viral pneumonia. 3. 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 4. History of tobaccoism. Quit 2 years ago. 5. Acute kidney injury versus chronic kidney disease. 6. Increased CPK and troponin level. Plan . Updated 09/18 Discussed with and patient, will initiate morphine drip Discussed with RN Continue current support Patient is a DO NOT INTUBATE Patient not expected to survive JULIETH TORRES MD Sep 18, 2021 09:19
[2021-09-18 11:00] VITALS: BP 109/77
--- NOTE | 2021-09-18 12:29 | PDOC ---
[employer] PROGRESS NOTE Date of Service DOS: DATE: 09/18/21 TIME: 12:28 Chief Complaint Chief Complaint Acute hypoxic respiratory failure secondary to COVID-19 pneumonia VIDAL due to vasomotor nephropathy Mildly elevated troponin level suggestive of type II demand ischemia Morbid obesity History of stroke History of Present Illness History of Present Illness 66-year-old female with a past medical history of stroke with left-sided hemiparesis, tobacco misuse and possible COPD who presents events with 2 days of cough, shortness of breath, generalized weakness and fatigue. Patient called EMS for the symptoms and she was saturating at 60% on room air and was placed on 4 L nasal cannula and improved to 94%. Patient is not vaccinated for influenza or Covid. also has similar symptoms. Denies fevers, abdominal pain, chest pain, nausea vomiting or diarrhea or dysuria or hematuria. Patient does not wear any oxygen at home. She quit smoking several years ago, but she denies any known history of pulmonary disease. She had a previous severe stroke with residual left hemiparesis, that is unchanged. She has residual speech difficulty dysarthria which is unchanged as well. She usually goes to [facility] for her care. 09/06: weaknes, confusion, on bipap, cont current 09/07: still too weak, desat when trying to eat, cont the IV nutrition- we have no clinimix or PPN avail. cannot feed herself well, we should try to let her eat some, very weak, Desat when BIPAP off even briefly. discussed benefit of some PO intake with RN 09/08: Seen on BIPAP. Significant O2 desaturations when attempting to eat. Very weak. Severely ill, poor prognosis, she is aware, notes DNR status.Currently on 100% FiO2 via BiPAP and 100% FiO2 with Vapotherm. 09/09: Seen on BiPAP with supplemental 100% FiO2 40 L/min Vapotherm with saturations 87%. Not responding very well. Extremely poor prognosis shared with family. 09/10: Seen bedside on BiPAP supplemental her percent FiO2 40 recruited Vapotherm. Saturations 78%. shared poor prognosis with boyfriend/common law Wilfred son Олег is not answering. Glucose stable. 09/11: Seen bedside on BiPAP with supplemental Vapotherm 100% FiO2 40 L/min O2 saturations are in the mid 50s. She is gasping, is responsive to morphine for air hunger. Contacted her boyfriend Wilfred notes patient has 2 sisters and 4 living sons 1 of which is her primary beneficiary and DPOA who is currently incarcerated. There is a plan for bailing this son out of shelter today. Family is aware of the grim prognosis and patient's wishes not to have CPR or ventilation and are aware that her is likely imminent. 09/12: Seen bedside on BiPAP supplemental Vapotherm 40% FiO2 40 L/min with O2 saturation 70s. He has been responsive to morphine for air hunger. Unable to lift her head. Has a laceration on her ear from Vapotherm treated locally. Not responsive. Grim prognosis shared with family. A misunderstand of family meeting today to be done at her home rather than at the hospital. We will conference over the phone. Patient had made her wishes clear for several days that she did not wish for intubation or resuscitative efforts if her heart is to stop and this was communicated to me on 09/08/2021 which was the last time I was able to have a conversation with her. Has been obtunded since then 09/13: Seen bedside on BiPAP. Vapotherm FiO2 40 L/min with O2 saturations in the upper 70s. Responding well to morphine for air hunger. She was advised to sternal rub but not communicating. 09/14: Seen bedside on BiPAP with Vapotherm FiO2 40 L/min with O2 saturations in the 50s she continues to remove her BiPAP and the only word she uses is "hungry". Boyfriend Wilfred notes he would like someone to come to their house for a family meeting. Have offered telephone discussion with the family or to come into the hospital to discuss end-of-life care options. He says that hoping she "pulls through". She is not able to communicate well anymore. Grim prognosis 09/15 Evaluated examined at bedside still on BiPAP was kind of flailing around the bed when I saw her. Unable to communicate. Poor prognosis overall. We will try to contact family again today to address goals. 09/16 Patient evaluated examined at bedside. Still on BiPAP and Vapotherm. Saturating in mid 80s when I evaluated her. Still cannot really interact with her. Poor prognosis. 09/17 Evaluated at bedside. Still on very high oxygen settings. Kind of thrashing around in bed we will try some as needed Ativan. Continues to have poor prognosis. Family apparently going to come see at bedside today we will try to discuss with them. 09/18 Evaluate examined at bedside. Still on high oxygen settings had an episode this morning where she pulled off her BiPAP and had significant desaturation. Saturating in the 70s when I saw her at bedside. at bedside discussed with him again poor prognosis. He said he is discussing with the family about how they want to proceed. Vitals/I&O Vitals/I&O: Vital Signs Date Time Temp Pulse Resp B/P (MAP) Pulse Ox O2 Delivery O2 Flow Rate FiO2 09/18/21 11:59 77 BiPAP/CPAP 09/18/21 11:52 40.0 09/18/21 11:00 97.5 93 38 109/77 (88) 97.5 I & O 09/17/21 09/17/21 09/18/21 15:00 23:00 07:00 Output Total 600 ml 350 ml Balance -600 ml -350 ml Physical Exam General: moderate distress, Other (confused, ) Heart: Regular rate Lungs: Crackles Abdomen: Normal bowel sounds Extremities: No clubbing Skin: No rashes Labs Labs: Laboratory Tests Test 09/17/21 20:47 09/18/21 09:14 09/18/21 12:04 Glucose (Fingerstick) 114 mg/dL (70-99) 137 mg/dL (70-99) 122 mg/dL (70-99) Assessment and Plan Assessmemt and Plan Problems Medical Problems: (1) COVID-19 Status: Acute (2) Pneumonia due to COVID-19 virus Status: Acute (3) Respiratory failure with hypoxia Status: Acute Comment Review of Relevant I have reviewed the following items allyn (where applicable) has been applied. Justifications for Admission Other Justification COVID-19 positive test (U07.1, COVID-19) with Acute Pneumonia (J12.89, Other viral pneumonia) (If respiratory failure or sepsis present, add as separate assessment) SIENA IRAHETA MD Sep 18, 2021 12:29
--- NOTE | 2021-09-18 13:19 | NUR ---
SS following up with discharge planning. SS reviewed pt chart and discussed with pt RN. Pt is currently on Vapotherm and BIPAP at 100%. COVID19 recovered now. Chemical Code only. Physicians continuing to discuss goals of care with pt's family. Not stable. SS will continue to follow for discharge planning.
--- NOTE | 2021-09-18 14:00 | NUR ---
Wound Care Wound Type/Assessment: Patient seen per wound care for follow up regarding pressure wounds to posterior ears. Pt is C19+ recovered, remains on bipap with vapotherm at 100% as well as supplemental NC 02 and her sats were mainly in the 60's and at their highest in the lower 70's during this assessment. Pt is a chemical code only. Patient continues to be too unstable to complete a full head to toe assessment as even assessing her ears and face her sats continued to decline. RN aware and at bedside for most of assessment as well as family. Patient has Stage III pressure ulcers to the right ear and the left ear is now scabbed over. Vapotherm tubing taped over foam dressings on pt cheeks. Treatment Recommendations/Plan: Apply xeroform gauze to the right ear and left ear skin prep. Education provided: Pt LOC inappropriate for education at this time, patient continues to appear uncomfortable and fighting during assessment. Patient is in so much discomfort, family again needs to be considering pallative care. Offloading surface/device: Wedge and pillows for positioning and comfort if able. Recommended Referrals/Tests: NA Discharge Recommendations for dressings: Continue as above. Pt condition extremely unstable. Wound care palliative at this time and patient's o2 sats remained in the 60's, Call light in reach and family at bedside. Discussed with RN. Wound care will follow up on 09/25/21.
[2021-09-18 14:50] VITALS: BP 112/63
[2021-09-18] MEDS ORDERED: NALOXONE 0.4 MG/ML VIAL. IV PRN (16:15)
[2021-09-18] MEDS: IV NORMAL SALINE 1000ML BAG 1,000 ML IV SCH (17:24)
[2021-09-18] MEDS: MORPHINE SULFATE 30 ML IV PRN (17:28)
[2021-09-18 19:00] VITALS: BP 119/58
[2021-09-18 22:21] VITALS: BP 145/60
[2021-09-19] MEDS: STERILE WATER for RESP 1,000 ML BAG. INH PRN ×2 (01:37→17:43)
[2021-09-19] MEDS: IV DEXTROSE 5 %-0.45 % NACL 1,000 ML IV SCH ×3 (02:35→22:01)
[2021-09-19 02:56] VITALS: BP 95/45
[2021-09-19] MEDS: PANTOPRAZOLE IV PUSH 40 MG VIAL. IVP SCH (05:57)
[2021-09-19 07:00] VITALS: BP 95/45
[2021-09-19] MEDS: INSULIN LISPRO 300 UNITS/3 ML VIAL. SQ SCH ×3 (07:03→17:00)
[2021-09-19] MEDS: ZINC SULFATE 220 MG CAPSULE. PO SCH (08:18)
[2021-09-19] MEDS: LISINOPRIL 20 MG TABLET PO SCH (08:18)
[2021-09-19] MEDS: GABAPENTIN 300 MG CAPSULE. PO SCH ×3 (08:18→20:27)
[2021-09-19] MEDS: ENOXAPARIN 40 MG/0.4 ML SYRINGE. SQ SCH ×2 (08:19→20:28)
[2021-09-19] MEDS: THIAMINE 100 MG TABLET. PO SCH (08:19)
[2021-09-19] MEDS: ASCORBIC ACID 1,000 MG TABLET PO SCH ×3 (08:19→20:27)
[2021-09-19] MEDS: NYSTATIN TOPICAL POWDER 15GM BOTTLE. TP SCH ×2 (08:20→20:27)
[2021-09-19] MEDS: MORPHINE SULFATE 30 ML IV PRN (08:51)
--- NOTE | 2021-09-19 09:33 | PDOC ---
PULMONARY PROGRESS NOTES DATE: 09/19/21 TIME: 09:27 Subjective Patient remains critically ill Rapid response called this morning Patient currently non-responsive to painful stimuli Currently on VT 40 L flow 100% FiO2 in addition to BiPAP 100% FiO2 with O2 saturation of 48% On morphine drip Vitals Vital Signs Date Time Temp Pulse Resp B/P (MAP) Pulse Ox O2 Delivery O2 Flow Rate FiO2 09/19/21 08:51 59 40.0 09/19/21 08:00 Bi-pap 09/19/21 02:56 98.2 77 31 95/45 (62) 98.2 Comments Non-responsive to painful stimuli Lungs: Crackles Cardiovascular: S1, S2, Other Abdomen: Other (Obese) Extremities: Other (Edema) Skin: Warm Labs Laboratory Tests Test 09/17/21 11:19 09/17/21 20:47 09/18/21 09:14 09/18/21 12:04 Glucose (Fingerstick) 108 mg/dL (70-99) 114 mg/dL (70-99) 137 mg/dL (70-99) 122 mg/dL (70-99) Test 09/18/21 16:17 09/18/21 19:51 09/19/21 08:33 Glucose (Fingerstick) 113 mg/dL (70-99) 117 mg/dL (70-99) 128 mg/dL (70-99) Laboratory Tests Test 09/18/21 12:04 09/18/21 16:17 09/18/21 19:51 09/19/21 08:33 Glucose (Fingerstick) 122 mg/dL (70-99) 113 mg/dL (70-99) 117 mg/dL (70-99) 128 mg/dL (70-99) Medications Active Scripts Medications Dose Route/Sig Max Daily Dose Days Date Category Vitamin D2 (Ergocalciferol (Vitamin D2)) 1,250 Mcg Capsule 1,250 Mcg PO WEEKLY 08/27/21 Reported Naproxen Cr (Naproxen Sodium) 500 Mg Tbmp.24hr 1 Tab PO BID PRN 30 08/27/21 Reported Gabapentin (Gabapentin) 300 Mg Capsule 300 Mg PO TID 08/27/21 Reported Triamcinolone Acetonide 80 Gm Oint...g. 1 Betty TP BID 08/27/21 Reported Atorvastatin Calcium 40 Mg Tablet 1 Tab PO DAILY 08/27/21 Reported Tizanidine Hcl 4 Mg Tablet 1 Tab PO BID 08/27/21 Reported Oxybutynin Chloride Er (Oxybutynin Chloride) 5 Mg Tab.er.24 1 Tab PO DAILY 08/27/21 Reported Impression . 1. Acute hypoxic respiratory failure secondary to COVID-19 pneumonia/acute lung injury and early ARDS. Requiring Vapotherm and BiPAP at 100%. 2. Abnormal chest x-ray consistent with viral pneumonia. 3. 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 4. History of tobaccoism. Quit 2 years ago. 5. Acute kidney injury versus chronic kidney disease. 6. Increased CPK and troponin level. Plan . Updated 09/19 Nursing staff called me this morning regarding rapid, patient is actively dying, continue morphine drip Patient not expected to survive. Rapid response this AM On Morphine drip Patient is Chemical code only Discussed with RN Rapidly declining; RN spoke with family, continue current code status JULIETH TORRES MD Sep 19, 2021 09:33
[2021-09-19 11:00] VITALS: BP 91/52
--- NOTE | 2021-09-19 13:34 | PDOC ---
[employer] PROGRESS NOTE Date of Service DOS: DATE: 09/19/21 TIME: 13:33 Chief Complaint Chief Complaint Acute hypoxic respiratory failure secondary to COVID-19 pneumonia VIDAL due to vasomotor nephropathy Mildly elevated troponin level suggestive of type II demand ischemia Morbid obesity History of stroke History of Present Illness History of Present Illness 66-year-old female with a past medical history of stroke with left-sided hemiparesis, tobacco misuse and possible COPD who presents events with 2 days of cough, shortness of breath, generalized weakness and fatigue. Patient called EMS for the symptoms and she was saturating at 60% on room air and was placed on 4 L nasal cannula and improved to 94%. Patient is not vaccinated for influenza or Covid. also has similar symptoms. Denies fevers, abdominal pain, chest pain, nausea vomiting or diarrhea or dysuria or hematuria. Patient does not wear any oxygen at home. She quit smoking several years ago, but she denies any known history of pulmonary disease. She had a previous severe stroke with residual left hemiparesis, that is unchanged. She has residual speech difficulty dysarthria which is unchanged as well. She usually goes to [facility] for her care. 09/06: weaknes, confusion, on bipap, cont current 09/07: still too weak, desat when trying to eat, cont the IV nutrition- we have no clinimix or PPN avail. cannot feed herself well, we should try to let her eat some, very weak, Desat when BIPAP off even briefly. discussed benefit of some PO intake with RN 09/08: Seen on BIPAP. Significant O2 desaturations when attempting to eat. Very weak. Severely ill, poor prognosis, she is aware, notes DNR status.Currently on 100% FiO2 via BiPAP and 100% FiO2 with Vapotherm. 09/09: Seen on BiPAP with supplemental 100% FiO2 40 L/min Vapotherm with saturations 87%. Not responding very well. Extremely poor prognosis shared with family. 09/10: Seen bedside on BiPAP supplemental her percent FiO2 40 recruited Vapotherm. Saturations 78%. shared poor prognosis with boyfriend/common law Wilfred son Олег is not answering. Glucose stable. 09/11: Seen bedside on BiPAP with supplemental Vapotherm 100% FiO2 40 L/min O2 saturations are in the mid 50s. She is gasping, is responsive to morphine for air hunger. Contacted her boyfriend Wilfred notes patient has 2 sisters and 4 living sons 1 of which is her primary beneficiary and DPOA who is currently incarcerated. There is a plan for bailing this son out of alf today. Family is aware of the grim prognosis and patient's wishes not to have CPR or ventilation and are aware that her is likely imminent. 09/12: Seen bedside on BiPAP supplemental Vapotherm 40% FiO2 40 L/min with O2 saturation 70s. He has been responsive to morphine for air hunger. Unable to lift her head. Has a laceration on her ear from Vapotherm treated locally. Not responsive. Grim prognosis shared with family. A misunderstand of family meeting today to be done at her home rather than at the hospital. We will conference over the phone. Patient had made her wishes clear for several days that she did not wish for intubation or resuscitative efforts if her heart is to stop and this was communicated to me on 09/08/2021 which was the last time I was able to have a conversation with her. Has been obtunded since then 09/13: Seen bedside on BiPAP. Vapotherm FiO2 40 L/min with O2 saturations in the upper 70s. Responding well to morphine for air hunger. She was advised to sternal rub but not communicating. 09/14: Seen bedside on BiPAP with Vapotherm FiO2 40 L/min with O2 saturations in the 50s she continues to remove her BiPAP and the only word she uses is "hungry". Boyfriend Wilfred notes he would like someone to come to their house for a family meeting. Have offered telephone discussion with the family or to come into the hospital to discuss end-of-life care options. He says that hoping she "pulls through". She is not able to communicate well anymore. Grim prognosis 09/15 Evaluated examined at bedside still on BiPAP was kind of flailing around the bed when I saw her. Unable to communicate. Poor prognosis overall. We will try to contact family again today to address goals. 09/16 Patient evaluated examined at bedside. Still on BiPAP and Vapotherm. Saturating in mid 80s when I evaluated her. Still cannot really interact with her. Poor prognosis. 09/17 Evaluated at bedside. Still on very high oxygen settings. Kind of thrashing around in bed we will try some as needed Ativan. Continues to have poor prognosis. Family apparently going to come see at bedside today we will try to discuss with them. 09/18 Evaluate examined at bedside. Still on high oxygen settings had an episode this morning where she pulled off her BiPAP and had significant desaturation. Saturating in the 70s when I saw her at bedside. at bedside discussed with him again poor prognosis. He said he is discussing with the family about how they want to proceed. 09/19 Seen and examined at bedside. Still no response to stimulation. Remains on current high oxygen settings. Had an episode this morning actually where she desaturated into the 30s. She was able to recover but took some time currently saturating in the 70s. Really becoming futile at this point but family insisted we continue current. Vitals/I&O Vitals/I&O: Vital Signs Date Time Temp Pulse Resp B/P (MAP) Pulse Ox O2 Delivery O2 Flow Rate FiO2 09/19/21 11:26 78 BiPAP/CPAP 09/19/21 11:00 98.1 88 91/52 (65) 40.0 98.1 09/19/21 02:56 31 I & O 09/18/21 09/18/21 09/19/21 15:00 23:00 07:00 Intake Total 0 ml 0 ml Output Total 550 ml Balance 0 ml -550 ml Physical Exam General: moderate distress, Other (confused, ) Heart: Regular rate Lungs: Crackles Abdomen: Normal bowel sounds Extremities: No clubbing Skin: No rashes Labs Labs: Laboratory Tests Test 09/18/21 16:17 09/18/21 19:51 09/19/21 08:33 09/19/21 12:31 Glucose (Fingerstick) 113 mg/dL (70-99) 117 mg/dL (70-99) 128 mg/dL (70-99) 113 mg/dL (70-99) Assessment and Plan Assessmemt and Plan Problems Medical Problems: (1) COVID-19 Status: Acute (2) Pneumonia due to COVID-19 virus Status: Acute (3) Respiratory failure with hypoxia Status: Acute Comment Review of Relevant I have reviewed the following items allyn (where applicable) has been applied. Medications: Current Medications Medications (Trade) Dose Ordered Sig/Alex Route PRN Reason Start Time Stop Time Status Last Admin Dose Admin Sodium Chloride 1,000 ml @ 25 mls/hr Q24H IV 09/18/21 16:15 09/18/21 17:24 Morphine Sulfate 30 ml @ 0 mls/hr CONT PRN IV PER PROTOCOL 09/18/21 16:15 09/19/21 08:51 Justifications for Admission Other Justification COVID-19 positive test (U07.1, COVID-19) with Acute Pneumonia (J12.89, Other viral pneumonia) (If respiratory failure or sepsis present, add as separate assessment) SIENA IRAHETA MD Sep 19, 2021 13:34
--- NOTE | 2021-09-19 14:02 | EKG ---
[facility] [address] [place] [address] Test Date: 2021-09-19 Test Time: 08:03:38 Pat Name: ROSI NICHOLSON Department: Room: [facility] Gender: F Greens Picker: [facility] : 1955 Requested By: HUSSEIN GRAY Order Number: [id number] Reading MD: Alex Bustamante Measurements Intervals [place] Rate: 78 P: 38 NC: 144 QRS: 11 QRSD: 88 T: -31 QT: 414 QTc: 476 Interpretive Statements SINUS RHYTHM T ABNORMALITY IN ANTERIOR LEADS INFERIOR LEADS PROLONGED QT Electronically Signed On 09-21-2021 9:29:07 [employer]AYER by Alex Bustamante
[2021-09-19 15:00] VITALS: BP 91/46
[2021-09-19] MEDS: IV NORMAL SALINE 1000ML BAG 1,000 ML IV SCH (16:31)
[2021-09-19 19:22] VITALS: BP 97/47
[2021-09-19 22:38] VITALS: BP 97/46
[2021-09-20] MEDS: MORPHINE SULFATE 30 ML IV PRN ×2 (00:15→20:56)
[2021-09-20 02:25] VITALS: BP 89/46
[2021-09-20] MEDS: PANTOPRAZOLE IV PUSH 40 MG VIAL. IVP SCH (06:01)
[2021-09-20 07:00] VITALS: BP 107/55
[2021-09-20] MEDS: INSULIN LISPRO 300 UNITS/3 ML VIAL. SQ SCH ×3 (08:00→17:00)
--- NOTE | 2021-09-20 08:45 | PDOC ---
PULMONARY PROGRESS NOTES DATE: 09/20/21 TIME: 08:42 Subjective Patient remains critically ill Patient more responsive this morning, responds to light touch Continues on VT 40L 100% and BiPAP 20/10 18 100% FiO2; saturation 88% this morning Continues with morphine drip Vitals Vital Signs Date Time Temp Pulse Resp B/P (MAP) Pulse Ox O2 Delivery O2 Flow Rate FiO2 09/20/21 06:10 96 BiPAP/CPAP 09/20/21 02:25 97.4 76 21 89/46 (60) 40.0 97.4 Comments Responsive to light touch General: Confused Lungs: Crackles Cardiovascular: S1, S2, Other Abdomen: Other (Obese) Extremities: Other (Edema) Skin: Warm Labs Laboratory Tests Test 09/18/21 09:14 09/18/21 12:04 09/18/21 16:17 09/18/21 19:51 Glucose (Fingerstick) 137 mg/dL (70-99) 122 mg/dL (70-99) 113 mg/dL (70-99) 117 mg/dL (70-99) Test 09/19/21 08:33 09/19/21 12:31 09/19/21 16:51 09/19/21 20:53 Glucose (Fingerstick) 128 mg/dL (70-99) 113 mg/dL (70-99) 120 mg/dL (70-99) 114 mg/dL (70-99) Test 09/20/21 07:58 Glucose (Fingerstick) 120 mg/dL (70-99) Laboratory Tests Test 09/19/21 12:31 09/19/21 16:51 09/19/21 20:53 09/20/21 07:58 Glucose (Fingerstick) 113 mg/dL (70-99) 120 mg/dL (70-99) 114 mg/dL (70-99) 120 mg/dL (70-99) Medications Active Scripts Medications Dose Route/Sig Max Daily Dose Days Date Category Vitamin D2 (Ergocalciferol (Vitamin D2)) 1,250 Mcg Capsule 1,250 Mcg PO WEEKLY 08/27/21 Reported Naproxen Cr (Naproxen Sodium) 500 Mg Tbmp.24hr 1 Tab PO BID PRN 30 08/27/21 Reported Gabapentin (Gabapentin) 300 Mg Capsule 300 Mg PO TID 08/27/21 Reported Triamcinolone Acetonide 80 Gm Oint...g. 1 Betty TP BID 08/27/21 Reported Atorvastatin Calcium 40 Mg Tablet 1 Tab PO DAILY 08/27/21 Reported Tizanidine Hcl 4 Mg Tablet 1 Tab PO BID 08/27/21 Reported Oxybutynin Chloride Er (Oxybutynin Chloride) 5 Mg Tab.er.24 1 Tab PO DAILY 08/27/21 Reported Impression . 1. Acute hypoxic respiratory failure secondary to COVID-19 pneumonia/acute lung injury and early ARDS. Requiring Vapotherm and BiPAP at 100%. 2. Abnormal chest x-ray consistent with viral pneumonia. 3. 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 4. History of tobaccoism. Quit 2 years ago. 5. Acute kidney injury versus chronic kidney disease. 6. Increased CPK and troponin level. Plan . Updated 09/20 Continue current support Not expected to survive Morphine drip Chemical Code Updated 09/19 Nursing staff called me this morning regarding rapid, patient is actively dying, continue morphine drip Patient not expected to survive. Rapid response this AM On Morphine drip Patient is Chemical code only Discussed with RN Rapidly declining; RN spoke with family, continue current code status JULIETH TORRES MD Sep 20, 2021 08:45
[2021-09-20] MEDS: THIAMINE 100 MG TABLET. PO SCH (09:00)
[2021-09-20] MEDS: ZINC SULFATE 220 MG CAPSULE. PO SCH (09:00)
[2021-09-20] MEDS: NYSTATIN TOPICAL POWDER 15GM BOTTLE. TP SCH ×2 (09:00→20:57)
[2021-09-20] MEDS: ASCORBIC ACID 1,000 MG TABLET PO SCH ×3 (09:00→20:18)
[2021-09-20] MEDS: LISINOPRIL 20 MG TABLET PO SCH (09:00)
[2021-09-20] MEDS: GABAPENTIN 300 MG CAPSULE. PO SCH ×3 (09:00→20:17)
[2021-09-20] MEDS: ENOXAPARIN 40 MG/0.4 ML SYRINGE. SQ SCH ×2 (09:33→20:57)
[2021-09-20] MEDS: IV DEXTROSE 5 %-0.45 % NACL 1,000 ML IV SCH ×2 (09:44→20:57)
[2021-09-20] MEDS: STERILE WATER for RESP 1,000 ML BAG. INH PRN (09:56)
[2021-09-20 11:00] VITALS: BP 108/47
[2021-09-20 15:00] VITALS: BP 118/54
[2021-09-20] MEDS: IV NORMAL SALINE 1000ML BAG 1,000 ML IV SCH (16:16)
[2021-09-20 19:31] VITALS: BP 107/56
--- NOTE | 2021-09-20 20:45 | PDOC ---
[employer] PROGRESS NOTE Date of Service DOS: DATE: 09/20/21 TIME: 20:44 Chief Complaint Chief Complaint Acute hypoxic respiratory failure secondary to COVID-19 pneumonia VIDAL due to vasomotor nephropathy Mildly elevated troponin level suggestive of type II demand ischemia Morbid obesity History of stroke History of Present Illness History of Present Illness 66-year-old female with a past medical history of stroke with left-sided hemiparesis, tobacco misuse and possible COPD who presents events with 2 days of cough, shortness of breath, generalized weakness and fatigue. Patient called EMS for the symptoms and she was saturating at 60% on room air and was placed on 4 L nasal cannula and improved to 94%. Patient is not vaccinated for influenza or Covid. also has similar symptoms. Denies fevers, abdominal pain, chest pain, nausea vomiting or diarrhea or dysuria or hematuria. Patient does not wear any oxygen at home. She quit smoking several years ago, but she denies any known history of pulmonary disease. She had a previous severe stroke with residual left hemiparesis, that is unchanged. She has residual speech difficulty dysarthria which is unchanged as well. She usually goes to [facility] for her care. 09/06: weaknes, confusion, on bipap, cont current 09/07: still too weak, desat when trying to eat, cont the IV nutrition- we have no clinimix or PPN avail. cannot feed herself well, we should try to let her eat some, very weak, Desat when BIPAP off even briefly. discussed benefit of some PO intake with RN 09/08: Seen on BIPAP. Significant O2 desaturations when attempting to eat. Very weak. Severely ill, poor prognosis, she is aware, notes DNR status.Currently on 100% FiO2 via BiPAP and 100% FiO2 with Vapotherm. 09/09: Seen on BiPAP with supplemental 100% FiO2 40 L/min Vapotherm with saturations 87%. Not responding very well. Extremely poor prognosis shared with family. 09/10: Seen bedside on BiPAP supplemental her percent FiO2 40 recruited Vapotherm. Saturations 78%. shared poor prognosis with boyfriend/common law Wilfred son Олег is not answering. Glucose stable. 09/11: Seen bedside on BiPAP with supplemental Vapotherm 100% FiO2 40 L/min O2 saturations are in the mid 50s. She is gasping, is responsive to morphine for air hunger. Contacted her boyfriend Wilfred notes patient has 2 sisters and 4 living sons 1 of which is her primary beneficiary and DPOA who is currently incarcerated. There is a plan for bailing this son out of snf today. Family is aware of the grim prognosis and patient's wishes not to have CPR or ventilation and are aware that her is likely imminent. 09/12: Seen bedside on BiPAP supplemental Vapotherm 40% FiO2 40 L/min with O2 saturation 70s. He has been responsive to morphine for air hunger. Unable to lift her head. Has a laceration on her ear from Vapotherm treated locally. Not responsive. Grim prognosis shared with family. A misunderstand of family meeting today to be done at her home rather than at the hospital. We will conference over the phone. Patient had made her wishes clear for several days that she did not wish for intubation or resuscitative efforts if her heart is to stop and this was communicated to me on 09/08/2021 which was the last time I was able to have a conversation with her. Has been obtunded since then 09/13: Seen bedside on BiPAP. Vapotherm FiO2 40 L/min with O2 saturations in the upper 70s. Responding well to morphine for air hunger. She was advised to sternal rub but not communicating. 09/14: Seen bedside on BiPAP with Vapotherm FiO2 40 L/min with O2 saturations in the 50s she continues to remove her BiPAP and the only word she uses is "hungry". Boyfriend Wilfred notes he would like someone to come to their house for a family meeting. Have offered telephone discussion with the family or to come into the hospital to discuss end-of-life care options. He says that hoping she "pulls through". She is not able to communicate well anymore. Grim prognosis 09/15 Evaluated examined at bedside still on BiPAP was kind of flailing around the bed when I saw her. Unable to communicate. Poor prognosis overall. We will try to contact family again today to address goals. 09/16 Patient evaluated examined at bedside. Still on BiPAP and Vapotherm. Saturating in mid 80s when I evaluated her. Still cannot really interact with her. Poor prognosis. 09/17 Evaluated at bedside. Still on very high oxygen settings. Kind of thrashing around in bed we will try some as needed Ativan. Continues to have poor prognosis. Family apparently going to come see at bedside today we will try to discuss with them. 09/18 Evaluate examined at bedside. Still on high oxygen settings had an episode this morning where she pulled off her BiPAP and had significant desaturation. Saturating in the 70s when I saw her at bedside. at bedside discussed with him again poor prognosis. He said he is discussing with the family about how they want to proceed. 09/19 Seen and examined at bedside. Still no response to stimulation. Remains on current high oxygen settings. Had an episode this morning actually where she desaturated into the 30s. She was able to recover but took some time currently saturating in the 70s. Really becoming futile at this point but family insisted we continue current. 09/20 Seen at bedside. NO real clinical change. Grim prognosis. Will continue discussion with familyl Vitals/I&O Vitals/I&O: Vital Signs Date Time Temp Pulse Resp B/P (MAP) Pulse Ox O2 Delivery O2 Flow Rate FiO2 09/20/21 16:12 87 BiPAP/CPAP 09/20/21 16:11 40.0 09/20/21 15:00 97.2 79 20 118/54 (75) 97.2 I & O 09/19/21 09/19/21 09/20/21 15:00 23:00 07:00 Output Total 300 ml Balance -300 ml Physical Exam General: moderate distress, Other (confused, ) Heart: Regular rate Lungs: Crackles Abdomen: Normal bowel sounds Extremities: No clubbing Skin: No rashes Labs Labs: Laboratory Tests Test 09/19/21 20:53 09/20/21 07:58 09/20/21 12:35 09/20/21 16:54 Glucose (Fingerstick) 114 mg/dL (70-99) 120 mg/dL (70-99) 98 mg/dL (70-99) 118 mg/dL (70-99) Test 09/20/21 20:24 Glucose (Fingerstick) 126 mg/dL (70-99) Assessment and Plan Assessmemt and Plan Problems Medical Problems: (1) COVID-19 Status: Acute (2) Pneumonia due to COVID-19 virus Status: Acute (3) Respiratory failure with hypoxia Status: Acute Comment Review of Relevant I have reviewed the following items allyn (where applicable) has been applied. Justifications for Admission Other Justification COVID-19 positive test (U07.1, COVID-19) with Acute Pneumonia (J12.89, Other viral pneumonia) (If respiratory failure or sepsis present, add as separate assessment) SIENA IRAHETA MD Sep 20, 2021 20:45
[2021-09-20 23:24] VITALS: BP 104/49
[2021-09-21] MEDS: STERILE WATER for RESP 1,000 ML BAG. INH PRN ×2 (01:55→15:55)
[2021-09-21 02:21] VITALS: BP 103/49
[2021-09-21 04:40] LABS: HEMATOCRIT 28.6 % (36.0-47.0); HEMOGLOBIN 8.4 g/dL (12.0-15.5); RED BLOOD COUNT 3.23 x10^6/uL (3.50-5.40); RED CELL DISTRIBUTION WIDTH 16.8 % (11.5-14.5); WHITE BLOOD COUNT 11.3 x10^3/uL (4.0-11.0)
[2021-09-21 05:30] LABS: CREATININE 3.6 mg/dL (0.6-1.0); GFR 15.4
[2021-09-21] MEDS: PANTOPRAZOLE IV PUSH 40 MG VIAL. IVP SCH (05:46)
[2021-09-21 07:00] VITALS: BP 103/55
[2021-09-21] MEDS: INSULIN LISPRO 300 UNITS/3 ML VIAL. SQ SCH ×3 (08:00→17:00)
[2021-09-21] MEDS: GABAPENTIN 300 MG CAPSULE. PO SCH ×3 (09:00→20:47)
[2021-09-21] MEDS: LISINOPRIL 20 MG TABLET PO SCH (09:00)
[2021-09-21] MEDS: THIAMINE 100 MG TABLET. PO SCH (09:00)
[2021-09-21] MEDS: ASCORBIC ACID 1,000 MG TABLET PO SCH ×3 (09:00→20:47)
[2021-09-21] MEDS: ZINC SULFATE 220 MG CAPSULE. PO SCH (09:00)
[2021-09-21] MEDS: ENOXAPARIN 40 MG/0.4 ML SYRINGE. SQ SCH ×2 (09:08→20:47)
--- NOTE | 2021-09-21 09:33 | PDOC ---
PULMONARY PROGRESS NOTES DATE: 09/21/21 TIME: 09:32 Subjective Patient remains critically ill Patient more responsive this morning, responds to light touch Continues on VT 40L 100% and BiPAP 20/10 18 100% FiO2; saturation 88% this morning Continues with morphine drip Vitals Vital Signs Date Time Temp Pulse Resp B/P (MAP) Pulse Ox O2 Delivery O2 Flow Rate FiO2 09/21/21 08:00 40.0 09/21/21 07:40 90 BiPAP/CPAP 09/21/21 07:00 99.5 87 21 103/55 (71) 99.5 Comments Responsive to light touch General: Confused Lungs: Crackles Cardiovascular: S1, S2, Other Abdomen: Other (Obese) Extremities: Other (Edema) Skin: Warm Labs Laboratory Tests Test 09/19/21 12:31 09/19/21 16:51 09/19/21 20:53 09/20/21 07:58 Glucose (Fingerstick) 113 mg/dL (70-99) 120 mg/dL (70-99) 114 mg/dL (70-99) 120 mg/dL (70-99) Test 09/20/21 12:35 09/20/21 16:54 09/20/21 20:24 09/21/21 04:00 Glucose (Fingerstick) 98 mg/dL (70-99) 118 mg/dL (70-99) 126 mg/dL (70-99) White Blood Count 11.3 x10^3/uL (4.0-11.0) Red Blood Count 3.23 x10^6/uL (3.50-5.40) Hemoglobin 8.4 g/dL (12.0-15.5) Hematocrit 28.6 % (36.0-47.0) Mean Corpuscular Volume 89 fL (79-100) Mean Corpuscular Hemoglobin 26 pg (25-35) Mean Corpuscular Hemoglobin Concent 29 g/dL (31-37) Red Cell Distribution Width 16.8 % (11.5-14.5) Platelet Count 205 x10^3/uL (140-400) Sodium Level 143 mmol/L (136-145) Potassium Level 4.0 mmol/L (3.5-5.1) Chloride Level 108 mmol/L (98-107) Carbon Dioxide Level 26 mmol/L (21-32) Anion Gap 9 (6-14) Blood Urea Nitrogen 29 mg/dL (7-20) Creatinine 3.6 mg/dL (0.6-1.0) Estimated GFR (Cockcroft-Gault) 15.4 Glucose Level 111 mg/dL (70-99) Calcium Level 8.0 mg/dL (8.5-10.1) Test 09/21/21 07:32 Glucose (Fingerstick) 122 mg/dL (70-99) Laboratory Tests Test 09/20/21 12:35 09/20/21 16:54 09/20/21 20:24 09/21/21 04:00 Glucose (Fingerstick) 98 mg/dL (70-99) 118 mg/dL (70-99) 126 mg/dL (70-99) White Blood Count 11.3 x10^3/uL (4.0-11.0) Red Blood Count 3.23 x10^6/uL (3.50-5.40) Hemoglobin 8.4 g/dL (12.0-15.5) Hematocrit 28.6 % (36.0-47.0) Mean Corpuscular Volume 89 fL (79-100) Mean Corpuscular Hemoglobin 26 pg (25-35) Mean Corpuscular Hemoglobin Concent 29 g/dL (31-37) Red Cell Distribution Width 16.8 % (11.5-14.5) Platelet Count 205 x10^3/uL (140-400) Sodium Level 143 mmol/L (136-145) Potassium Level 4.0 mmol/L (3.5-5.1) Chloride Level 108 mmol/L (98-107) Carbon Dioxide Level 26 mmol/L (21-32) Anion Gap 9 (6-14) Blood Urea Nitrogen 29 mg/dL (7-20) Creatinine 3.6 mg/dL (0.6-1.0) Estimated GFR (Cockcroft-Gault) 15.4 Glucose Level 111 mg/dL (70-99) Calcium Level 8.0 mg/dL (8.5-10.1) Test 09/21/21 07:32 Glucose (Fingerstick) 122 mg/dL (70-99) Medications Active Scripts Medications Dose Route/Sig Max Daily Dose Days Date Category Vitamin D2 (Ergocalciferol (Vitamin D2)) 1,250 Mcg Capsule 1,250 Mcg PO WEEKLY 08/27/21 Reported Naproxen Cr (Naproxen Sodium) 500 Mg Tbmp.24hr 1 Tab PO BID PRN 30 08/27/21 Reported Gabapentin (Gabapentin) 300 Mg Capsule 300 Mg PO TID 08/27/21 Reported Triamcinolone Acetonide 80 Gm Oint...g. 1 Betty TP BID 08/27/21 Reported Atorvastatin Calcium 40 Mg Tablet 1 Tab PO DAILY 08/27/21 Reported Tizanidine Hcl 4 Mg Tablet 1 Tab PO BID 08/27/21 Reported Oxybutynin Chloride Er (Oxybutynin Chloride) 5 Mg Tab.er.24 1 Tab PO DAILY 08/27/21 Reported Impression . 1. Acute hypoxic respiratory failure secondary to COVID-19 pneumonia/acute lung injury and early ARDS. Requiring Vapotherm and BiPAP at 100%. 2. Abnormal chest x-ray consistent with viral pneumonia. 3. 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 4. History of tobaccoism. Quit 2 years ago. 5. Acute kidney injury versus chronic kidney disease. 6. Increased CPK and troponin level. Plan . Updated 09/21 Discussed with , patient appears to be comfortable Continue current support Not expected to survive Morphine drip Chemical Code JULIETH TORRES MD Sep 21, 2021 09:33
--- NOTE | 2021-09-21 09:35 | PDOC ---
PULMONARY PROGRESS NOTES DATE: 09/21/21 TIME: 09:31 Subjective Patient remains critically ill Continues on VT 40L 100% and BiPAP 20/10 18 100% FiO2; saturation 88% this morning Continues with morphine drip Patient responds to light touch and voice Unable to follow commands Vitals Vital Signs Date Time Temp Pulse Resp B/P (MAP) Pulse Ox O2 Delivery O2 Flow Rate FiO2 09/21/21 08:00 40.0 09/21/21 07:40 90 BiPAP/CPAP 09/21/21 07:00 99.5 87 21 103/55 (71) 99.5 Comments Responsive to voice and light touch, does not follow commands General: Confused Lungs: Crackles Cardiovascular: S1, S2, Other Abdomen: Other (Obese) Extremities: Other (Edema) Skin: Warm Labs Laboratory Tests Test 09/19/21 12:31 09/19/21 16:51 09/19/21 20:53 09/20/21 07:58 Glucose (Fingerstick) 113 mg/dL (70-99) 120 mg/dL (70-99) 114 mg/dL (70-99) 120 mg/dL (70-99) Test 09/20/21 12:35 09/20/21 16:54 09/20/21 20:24 09/21/21 04:00 Glucose (Fingerstick) 98 mg/dL (70-99) 118 mg/dL (70-99) 126 mg/dL (70-99) White Blood Count 11.3 x10^3/uL (4.0-11.0) Red Blood Count 3.23 x10^6/uL (3.50-5.40) Hemoglobin 8.4 g/dL (12.0-15.5) Hematocrit 28.6 % (36.0-47.0) Mean Corpuscular Volume 89 fL (79-100) Mean Corpuscular Hemoglobin 26 pg (25-35) Mean Corpuscular Hemoglobin Concent 29 g/dL (31-37) Red Cell Distribution Width 16.8 % (11.5-14.5) Platelet Count 205 x10^3/uL (140-400) Sodium Level 143 mmol/L (136-145) Potassium Level 4.0 mmol/L (3.5-5.1) Chloride Level 108 mmol/L (98-107) Carbon Dioxide Level 26 mmol/L (21-32) Anion Gap 9 (6-14) Blood Urea Nitrogen 29 mg/dL (7-20) Creatinine 3.6 mg/dL (0.6-1.0) Estimated GFR (Cockcroft-Gault) 15.4 Glucose Level 111 mg/dL (70-99) Calcium Level 8.0 mg/dL (8.5-10.1) Test 09/21/21 07:32 Glucose (Fingerstick) 122 mg/dL (70-99) Laboratory Tests Test 09/20/21 12:35 09/20/21 16:54 09/20/21 20:24 09/21/21 04:00 Glucose (Fingerstick) 98 mg/dL (70-99) 118 mg/dL (70-99) 126 mg/dL (70-99) White Blood Count 11.3 x10^3/uL (4.0-11.0) Red Blood Count 3.23 x10^6/uL (3.50-5.40) Hemoglobin 8.4 g/dL (12.0-15.5) Hematocrit 28.6 % (36.0-47.0) Mean Corpuscular Volume 89 fL (79-100) Mean Corpuscular Hemoglobin 26 pg (25-35) Mean Corpuscular Hemoglobin Concent 29 g/dL (31-37) Red Cell Distribution Width 16.8 % (11.5-14.5) Platelet Count 205 x10^3/uL (140-400) Sodium Level 143 mmol/L (136-145) Potassium Level 4.0 mmol/L (3.5-5.1) Chloride Level 108 mmol/L (98-107) Carbon Dioxide Level 26 mmol/L (21-32) Anion Gap 9 (6-14) Blood Urea Nitrogen 29 mg/dL (7-20) Creatinine 3.6 mg/dL (0.6-1.0) Estimated GFR (Cockcroft-Gault) 15.4 Glucose Level 111 mg/dL (70-99) Calcium Level 8.0 mg/dL (8.5-10.1) Test 09/21/21 07:32 Glucose (Fingerstick) 122 mg/dL (70-99) Medications Active Scripts Medications Dose Route/Sig Max Daily Dose Days Date Category Vitamin D2 (Ergocalciferol (Vitamin D2)) 1,250 Mcg Capsule 1,250 Mcg PO WEEKLY 08/27/21 Reported Naproxen Cr (Naproxen Sodium) 500 Mg Tbmp.24hr 1 Tab PO BID PRN 30 08/27/21 Reported Gabapentin (Gabapentin) 300 Mg Capsule 300 Mg PO TID 08/27/21 Reported Triamcinolone Acetonide 80 Gm Oint...g. 1 Betty TP BID 08/27/21 Reported Atorvastatin Calcium 40 Mg Tablet 1 Tab PO DAILY 08/27/21 Reported Tizanidine Hcl 4 Mg Tablet 1 Tab PO BID 08/27/21 Reported Oxybutynin Chloride Er (Oxybutynin Chloride) 5 Mg Tab.er.24 1 Tab PO DAILY 08/27/21 Reported Impression . 1. Acute hypoxic respiratory failure secondary to COVID-19 pneumonia/acute lung injury and early ARDS. Requiring Vapotherm and BiPAP at 100%. 2. Abnormal chest x-ray consistent with viral pneumonia. 3. 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 4. History of tobaccoism. Quit 2 years ago. 5. Acute kidney injury versus chronic kidney disease. 6. Increased CPK and troponin level. Plan . Updated 09/21 Not expected to survive Continue BiPAP and VT Continue Morphine drip Labs reviewed No change in code status Updated 09/20 Continue current support Not expected to survive Morphine drip Chemical Code Updated 09/19 Nursing staff called me this morning regarding rapid, patient is actively dying, continue morphine drip Patient not expected to survive. Rapid response this AM On Morphine drip Patient is Chemical code only Discussed with RN Rapidly declining; RN spoke with family, continue current code status JULIETH TORRES MD Sep 21, 2021 09:35
[2021-09-21] MEDS: IV DEXTROSE 5 %-0.45 % NACL 1,000 ML IV SCH ×2 (10:52→21:04)
[2021-09-21 11:00] VITALS: BP 107/50
--- NOTE | 2021-09-21 13:07 | PDOC ---
[employer] PROGRESS NOTE Date of Service DOS: DATE: 09/21/21 TIME: 13:06 Chief Complaint Chief Complaint Acute hypoxic respiratory failure secondary to COVID-19 pneumonia VIDAL due to vasomotor nephropathy Mildly elevated troponin level suggestive of type II demand ischemia Morbid obesity History of stroke History of Present Illness History of Present Illness 66-year-old female with a past medical history of stroke with left-sided hemiparesis, tobacco misuse and possible COPD who presents events with 2 days of cough, shortness of breath, generalized weakness and fatigue. Patient called EMS for the symptoms and she was saturating at 60% on room air and was placed on 4 L nasal cannula and improved to 94%. Patient is not vaccinated for influenza or Covid. also has similar symptoms. Denies fevers, abdominal pain, chest pain, nausea vomiting or diarrhea or dysuria or hematuria. Patient does not wear any oxygen at home. She quit smoking several years ago, but she denies any known history of pulmonary disease. She had a previous severe stroke with residual left hemiparesis, that is unchanged. She has residual speech difficulty dysarthria which is unchanged as well. She usually goes to [facility] for her care. 09/06: weaknes, confusion, on bipap, cont current 09/07: still too weak, desat when trying to eat, cont the IV nutrition- we have no clinimix or PPN avail. cannot feed herself well, we should try to let her eat some, very weak, Desat when BIPAP off even briefly. discussed benefit of some PO intake with RN 09/08: Seen on BIPAP. Significant O2 desaturations when attempting to eat. Very weak. Severely ill, poor prognosis, she is aware, notes DNR status.Currently on 100% FiO2 via BiPAP and 100% FiO2 with Vapotherm. 09/09: Seen on BiPAP with supplemental 100% FiO2 40 L/min Vapotherm with saturations 87%. Not responding very well. Extremely poor prognosis shared with family. 09/10: Seen bedside on BiPAP supplemental her percent FiO2 40 recruited Vapotherm. Saturations 78%. shared poor prognosis with boyfriend/common law Wilfred son Олег is not answering. Glucose stable. 09/11: Seen bedside on BiPAP with supplemental Vapotherm 100% FiO2 40 L/min O2 saturations are in the mid 50s. She is gasping, is responsive to morphine for air hunger. Contacted her boyfriend Wilfred notes patient has 2 sisters and 4 living sons 1 of which is her primary beneficiary and DPOA who is currently incarcerated. There is a plan for bailing this son out of longterm today. Family is aware of the grim prognosis and patient's wishes not to have CPR or ventilation and are aware that her is likely imminent. 09/12: Seen bedside on BiPAP supplemental Vapotherm 40% FiO2 40 L/min with O2 saturation 70s. He has been responsive to morphine for air hunger. Unable to lift her head. Has a laceration on her ear from Vapotherm treated locally. Not responsive. Grim prognosis shared with family. A misunderstand of family meeting today to be done at her home rather than at the hospital. We will conference over the phone. Patient had made her wishes clear for several days that she did not wish for intubation or resuscitative efforts if her heart is to stop and this was communicated to me on 09/08/2021 which was the last time I was able to have a conversation with her. Has been obtunded since then 09/13: Seen bedside on BiPAP. Vapotherm FiO2 40 L/min with O2 saturations in the upper 70s. Responding well to morphine for air hunger. She was advised to sternal rub but not communicating. 09/14: Seen bedside on BiPAP with Vapotherm FiO2 40 L/min with O2 saturations in the 50s she continues to remove her BiPAP and the only word she uses is "hungry". Boyfriend Wilfred notes he would like someone to come to their house for a family meeting. Have offered telephone discussion with the family or to come into the hospital to discuss end-of-life care options. He says that hoping she "pulls through". She is not able to communicate well anymore. Grim prognosis 09/15 Evaluated examined at bedside still on BiPAP was kind of flailing around the bed when I saw her. Unable to communicate. Poor prognosis overall. We will try to contact family again today to address goals. 09/16 Patient evaluated examined at bedside. Still on BiPAP and Vapotherm. Saturating in mid 80s when I evaluated her. Still cannot really interact with her. Poor prognosis. 09/17 Evaluated at bedside. Still on very high oxygen settings. Kind of thrashing around in bed we will try some as needed Ativan. Continues to have poor prognosis. Family apparently going to come see at bedside today we will try to discuss with them. 09/18 Evaluate examined at bedside. Still on high oxygen settings had an episode this morning where she pulled off her BiPAP and had significant desaturation. Saturating in the 70s when I saw her at bedside. at bedside discussed with him again poor prognosis. He said he is discussing with the family about how they want to proceed. 09/19 Seen and examined at bedside. Still no response to stimulation. Remains on current high oxygen settings. Had an episode this morning actually where she desaturated into the 30s. She was able to recover but took some time currently saturating in the 70s. Really becoming futile at this point but family insisted we continue current. 09/20 Seen at bedside. NO real clinical change. Grim prognosis. Will continue discussion with familyl 09/21 Evaluate examined at bedside. Still on BiPAP. at bedside discussed with him he still wants continued care. Continue current. Pulm following. Vitals/I&O Vitals/I&O: Vital Signs Date Time Temp Pulse Resp B/P (MAP) Pulse Ox O2 Delivery O2 Flow Rate FiO2 09/21/21 12:48 86 BiPAP/CPAP 09/21/21 11:00 99.7 84 20 107/50 (69) 40.0 99.7 I & O 09/20/21 09/20/21 09/21/21 15:00 23:00 07:00 Intake Total 975 ml 0 ml Output Total 200 ml 100 ml Balance -200 ml 975 ml -100 ml Physical Exam General: moderate distress, Other (confused, ) Heart: Regular rate Lungs: Crackles Abdomen: Normal bowel sounds Extremities: No clubbing Skin: No rashes Labs Labs: Laboratory Tests Test 09/20/21 16:54 09/20/21 20:24 09/21/21 04:00 09/21/21 07:32 Glucose (Fingerstick) 118 mg/dL (70-99) 126 mg/dL (70-99) 122 mg/dL (70-99) White Blood Count 11.3 x10^3/uL (4.0-11.0) Red Blood Count 3.23 x10^6/uL (3.50-5.40) Hemoglobin 8.4 g/dL (12.0-15.5) Hematocrit 28.6 % (36.0-47.0) Mean Corpuscular Volume 89 fL (79-100) Mean Corpuscular Hemoglobin 26 pg (25-35) Mean Corpuscular Hemoglobin Concent 29 g/dL (31-37) Red Cell Distribution Width 16.8 % (11.5-14.5) Platelet Count 205 x10^3/uL (140-400) Sodium Level 143 mmol/L (136-145) Potassium Level 4.0 mmol/L (3.5-5.1) Chloride Level 108 mmol/L (98-107) Carbon Dioxide Level 26 mmol/L (21-32) Anion Gap 9 (6-14) Blood Urea Nitrogen 29 mg/dL (7-20) Creatinine 3.6 mg/dL (0.6-1.0) Estimated GFR (Cockcroft-Gault) 15.4 Glucose Level 111 mg/dL (70-99) Calcium Level 8.0 mg/dL (8.5-10.1) Assessment and Plan Assessmemt and Plan Problems Medical Problems: (1) COVID-19 Status: Acute (2) Pneumonia due to COVID-19 virus Status: Acute (3) Respiratory failure with hypoxia Status: Acute Comment Review of Relevant I have reviewed the following items allyn (where applicable) has been applied. Justifications for Admission Other Justification COVID-19 positive test (U07.1, COVID-19) with Acute Pneumonia (J12.89, Other viral pneumonia) (If respiratory failure or sepsis present, add as separate assessment) SIENA IRAHETA MD Sep 21, 2021 13:07
[2021-09-21] MEDS: MORPHINE SULFATE 30 ML IV PRN (13:34)
[2021-09-21 15:00] VITALS: BP 99/49
[2021-09-21] MEDS: NYSTATIN TOPICAL POWDER 15GM BOTTLE. TP SCH ×2 (16:00→20:46)
[2021-09-21 19:11] VITALS: BP 87/50
[2021-09-21] MEDS: IV NORMAL SALINE 1000ML BAG 1,000 ML IV SCH (21:04)
[2021-09-21 22:45] VITALS: BP 79/41
[2021-09-22] MEDS: IV DEXTROSE 5 %-0.45 % NACL 1,000 ML IV SCH
[2021-09-22 02:46] VITALS: BP 84/41
[2021-09-22] MEDS: MORPHINE SULFATE 30 ML IV PRN (04:53)
[2021-09-22] MEDS: PANTOPRAZOLE IV PUSH 40 MG VIAL. IVP SCH (06:17)
[2021-09-22 07:36] VITALS: BP 98/41
[2021-09-22] MEDS: GABAPENTIN 300 MG CAPSULE. PO SCH ×2 (07:55→10:08)
[2021-09-22] MEDS: ZINC SULFATE 220 MG CAPSULE. PO SCH (07:55)
[2021-09-22] MEDS: INSULIN LISPRO 300 UNITS/3 ML VIAL. SQ SCH (07:55)
[2021-09-22] MEDS: LISINOPRIL 20 MG TABLET PO SCH (07:56)
[2021-09-22] MEDS: THIAMINE 100 MG TABLET. PO SCH (07:56)
[2021-09-22] MEDS: ASCORBIC ACID 1,000 MG TABLET PO SCH ×2 (07:56→10:08)
[2021-09-22] MEDS: ENOXAPARIN 40 MG/0.4 ML SYRINGE. SQ SCH (08:00)
[2021-09-22] MEDS: NYSTATIN TOPICAL POWDER 15GM BOTTLE. TP SCH (08:00)
--- NOTE | 2021-09-22 08:40 | PDOC ---
PULMONARY PROGRESS NOTES DATE: 09/22/21 TIME: 08:36 Subjective Patient remains critically ill Heart rate dropped overnight with concerns for code, patient recovered on her own Continues with morphine drip Patient opened eyes when adjust BiPAP mask and responded with moans to questions Continues on VT 40L 100% and BiPAP 20/10 18 100% Slight improvement in recovery of O2 with desaturation. Vitals Vital Signs Date Time Temp Pulse Resp B/P (MAP) Pulse Ox O2 Delivery O2 Flow Rate FiO2 09/22/21 07:55 81 BiPAP/CPAP 09/22/21 07:36 97.9 85 22 98/41 (60) 40.0 97.9 Comments Responsive to voice and light touch, does not follow commands General: Confused Lungs: Crackles Cardiovascular: S1, S2, Other Abdomen: Other (Obese) Extremities: Other (Edema, generalized, left arm greater than right) Skin: Warm Labs Laboratory Tests Test 09/20/21 12:35 09/20/21 16:54 09/20/21 20:24 09/21/21 04:00 Glucose (Fingerstick) 98 mg/dL (70-99) 118 mg/dL (70-99) 126 mg/dL (70-99) White Blood Count 11.3 x10^3/uL (4.0-11.0) Red Blood Count 3.23 x10^6/uL (3.50-5.40) Hemoglobin 8.4 g/dL (12.0-15.5) Hematocrit 28.6 % (36.0-47.0) Mean Corpuscular Volume 89 fL (79-100) Mean Corpuscular Hemoglobin 26 pg (25-35) Mean Corpuscular Hemoglobin Concent 29 g/dL (31-37) Red Cell Distribution Width 16.8 % (11.5-14.5) Platelet Count 205 x10^3/uL (140-400) Sodium Level 143 mmol/L (136-145) Potassium Level 4.0 mmol/L (3.5-5.1) Chloride Level 108 mmol/L (98-107) Carbon Dioxide Level 26 mmol/L (21-32) Anion Gap 9 (6-14) Blood Urea Nitrogen 29 mg/dL (7-20) Creatinine 3.6 mg/dL (0.6-1.0) Estimated GFR (Cockcroft-Gault) 15.4 Glucose Level 111 mg/dL (70-99) Calcium Level 8.0 mg/dL (8.5-10.1) Test 09/21/21 07:32 Glucose (Fingerstick) 122 mg/dL (70-99) Medications Active Scripts Medications Dose Route/Sig Max Daily Dose Days Date Category Vitamin D2 (Ergocalciferol (Vitamin D2)) 1,250 Mcg Capsule 1,250 Mcg PO WEEKLY 08/27/21 Reported Naproxen Cr (Naproxen Sodium) 500 Mg Tbmp.24hr 1 Tab PO BID PRN 30 08/27/21 Reported Gabapentin (Gabapentin) 300 Mg Capsule 300 Mg PO TID 08/27/21 Reported Triamcinolone Acetonide 80 Gm Oint...g. 1 Betty TP BID 08/27/21 Reported Atorvastatin Calcium 40 Mg Tablet 1 Tab PO DAILY 08/27/21 Reported Tizanidine Hcl 4 Mg Tablet 1 Tab PO BID 08/27/21 Reported Oxybutynin Chloride Er (Oxybutynin Chloride) 5 Mg Tab.er.24 1 Tab PO DAILY 08/27/21 Reported Impression . 1. Acute hypoxic respiratory failure secondary to COVID-19 pneumonia/acute lung injury and early ARDS. Requiring Vapotherm and BiPAP at 100%. 2. Abnormal chest x-ray consistent with viral pneumonia. 3. 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 4. History of tobaccoism. Quit 2 years ago. 5. Acute kidney injury versus chronic kidney disease. 6. Increased CPK and troponin level. Plan . Updated 09/22 Continue BiPAP and VT Continue Morphine drip Prognosis remains poor Continues with Chemical Code only Updated 09/21 Not expected to survive Continue BiPAP and VT Continue Morphine drip Labs reviewed No change in code status Updated 09/20 Continue current support Not expected to survive Morphine drip Chemical Code Updated 09/19 Nursing staff called me this morning regarding rapid, patient is actively dying, continue morphine drip Patient not expected to survive. Rapid response this AM On Morphine drip Patient is Chemical code only Discussed with RN Rapidly declining; RN spoke with family, continue current code status JULIETH TORRES MD Sep 22, 2021 08:40
[2021-09-22] MEDS ORDERED: IV DEXTROSE 5%-LACT RINGERS 1,000 ML IV PRN (09:15)
--- NOTE | 2021-09-22 09:17 | PDOC ---
[employer] PROGRESS NOTE Date of Service DOS: DATE: 09/22/21 TIME: 09:15 Chief Complaint Chief Complaint Acute hypoxic respiratory failure secondary to COVID-19 pneumonia VIDAL due to vasomotor nephropathy Mildly elevated troponin level suggestive of type II demand ischemia Morbid obesity History of stroke History of Present Illness History of Present Illness 66-year-old female with a past medical history of stroke with left-sided hemiparesis, tobacco misuse and possible COPD who presents events with 2 days of cough, shortness of breath, generalized weakness and fatigue. Patient called EMS for the symptoms and she was saturating at 60% on room air and was placed on 4 L nasal cannula and improved to 94%. Patient is not vaccinated for influenza or Covid. also has similar symptoms. Denies fevers, abdominal pain, chest pain, nausea vomiting or diarrhea or dysuria or hematuria. Patient does not wear any oxygen at home. She quit smoking several years ago, but she denies any known history of pulmonary disease. She had a previous severe stroke with residual left hemiparesis, that is unchanged. She has residual speech difficulty dysarthria which is unchanged as well. She usually goes to [facility] for her care. 09/06: weaknes, confusion, on bipap, cont current 09/07: still too weak, desat when trying to eat, cont the IV nutrition- we have no clinimix or PPN avail. cannot feed herself well, we should try to let her eat some, very weak, Desat when BIPAP off even briefly. discussed benefit of some PO intake with RN 09/08: Seen on BIPAP. Significant O2 desaturations when attempting to eat. Very weak. Severely ill, poor prognosis, she is aware, notes DNR status.Currently on 100% FiO2 via BiPAP and 100% FiO2 with Vapotherm. 09/09: Seen on BiPAP with supplemental 100% FiO2 40 L/min Vapotherm with saturations 87%. Not responding very well. Extremely poor prognosis shared with family. 09/10: Seen bedside on BiPAP supplemental her percent FiO2 40 recruited Vapotherm. Saturations 78%. shared poor prognosis with boyfriend/common law Wilfred son Олег is not answering. Glucose stable. 09/11: Seen bedside on BiPAP with supplemental Vapotherm 100% FiO2 40 L/min O2 saturations are in the mid 50s. She is gasping, is responsive to morphine for air hunger. Contacted her boyfriend Wilfred notes patient has 2 sisters and 4 living sons 1 of which is her primary beneficiary and DPOA who is currently incarcerated. There is a plan for bailing this son out of custodial today. Family is aware of the grim prognosis and patient's wishes not to have CPR or ventilation and are aware that her is likely imminent. 09/12: Seen bedside on BiPAP supplemental Vapotherm 40% FiO2 40 L/min with O2 saturation 70s. He has been responsive to morphine for air hunger. Unable to lift her head. Has a laceration on her ear from Vapotherm treated locally. Not responsive. Grim prognosis shared with family. A misunderstand of family meeting today to be done at her home rather than at the hospital. We will conference over the phone. Patient had made her wishes clear for several days that she did not wish for intubation or resuscitative efforts if her heart is to stop and this was communicated to me on 09/08/2021 which was the last time I was able to have a conversation with her. Has been obtunded since then 09/13: Seen bedside on BiPAP. Vapotherm FiO2 40 L/min with O2 saturations in the upper 70s. Responding well to morphine for air hunger. She was advised to sternal rub but not communicating. 09/14: Seen bedside on BiPAP with Vapotherm FiO2 40 L/min with O2 saturations in the 50s she continues to remove her BiPAP and the only word she uses is "hungry". Boyfriend Wilfred notes he would like someone to come to their house for a family meeting. Have offered telephone discussion with the family or to come into the hospital to discuss end-of-life care options. He says that hoping she "pulls through". She is not able to communicate well anymore. Grim prognosis 09/15 Evaluated examined at bedside still on BiPAP was kind of flailing around the bed when I saw her. Unable to communicate. Poor prognosis overall. We will try to contact family again today to address goals. 09/16 Patient evaluated examined at bedside. Still on BiPAP and Vapotherm. Saturating in mid 80s when I evaluated her. Still cannot really interact with her. Poor prognosis. 09/17 Evaluated at bedside. Still on very high oxygen settings. Kind of thrashing around in bed we will try some as needed Ativan. Continues to have poor prognosis. Family apparently going to come see at bedside today we will try to discuss with them. 09/18 Evaluate examined at bedside. Still on high oxygen settings had an episode this morning where she pulled off her BiPAP and had significant desaturation. Saturating in the 70s when I saw her at bedside. at bedside discussed with him again poor prognosis. He said he is discussing with the family about how they want to proceed. 09/19 Seen and examined at bedside. Still no response to stimulation. Remains on current high oxygen settings. Had an episode this morning actually where she desaturated into the 30s. She was able to recover but took some time currently saturating in the 70s. Really becoming futile at this point but family insisted we continue current. 09/20 Seen at bedside. NO real clinical change. Grim prognosis. Will continue discussion with familyl 09/21: Evaluate examined at bedside. Still on BiPAP. at bedside discussed with him he still wants continued care. Continue current. Pulm following. 09/22:0906 noted with bradycardia in the 30s and hypoxia in the 40s. Given atropine bedside with her improvement. Readjusted BiPAP and Vapotherm. At tempted contact patient significant other Wilfred. Patient's not meaningfully moving her arms or legs. Vitals/I&O Vitals/I&O: Vital Signs Date Time Temp Pulse Resp B/P (MAP) Pulse Ox O2 Delivery O2 Flow Rate FiO2 09/22/21 07:55 81 BiPAP/CPAP 09/22/21 07:36 97.9 85 22 98/41 (60) 40.0 97.9 I & O 09/21/21 09/21/21 09/22/21 15:00 23:00 07:00 Intake Total 894 ml Output Total 750 ml 100 ml Balance 144 ml -100 ml Physical Exam General: moderate distress, Other (confused, ) Heart: Regular rate Lungs: Crackles Abdomen: Normal bowel sounds Extremities: No clubbing Skin: No rashes Assessment and Plan Assessmemt and Plan Problems Medical Problems: (1) COVID-19 Status: Acute (2) Pneumonia due to COVID-19 virus Status: Acute (3) Respiratory failure with hypoxia Status: Acute Comment Review of Relevant I have reviewed the following items allyn (where applicable) has been applied. Justifications for Admission Other Justification COVID-19 positive test (U07.1, COVID-19) with Acute Pneumonia (J12.89, Other viral pneumonia) (If respiratory failure or sepsis present, add as separate assessment) SIENA FONTENOT MD Sep 22, 2021 09:16
--- NOTE | 2021-09-22 09:27 | NUR ---
Pt given Atropine per doctors orders for a HR of 30bpm @ 0901, Pt HR in the 90's now
--- NOTE | 2021-09-22 10:49 | PDOC3 ---
Discharge Summary Visit Information Date of Admission: Aug 26, 2021 Date of Discharge: Sep 22, 2021 Admitting Diagnosis: COVID 19 Final Diagnosis Problems Medical Problems: (1) COVID-19 Status: Acute (2) Pneumonia due to COVID-19 virus Status: Acute (3) Respiratory failure with hypoxia Status: Acute Brief Hospital Course Allergies Allergies Coded Allergies Type Severity Reaction Last Updated Verified No Known Drug Allergies 08/27/21 No Vital Signs Vital Signs Date Time Temp Pulse Resp B/P (MAP) Pulse Ox O2 Delivery O2 Flow Rate FiO2 09/22/21 08:00 40.0 09/22/21 08:00 Bi-pap 09/22/21 07:55 81 09/22/21 07:36 97.9 85 22 98/41 (60) 97.9 Lab Results Laboratory Tests Test 09/20/21 12:35 09/20/21 16:54 09/20/21 20:24 09/21/21 04:00 Glucose (Fingerstick) 98 mg/dL (70-99) 118 mg/dL (70-99) 126 mg/dL (70-99) White Blood Count 11.3 x10^3/uL (4.0-11.0) Red Blood Count 3.23 x10^6/uL (3.50-5.40) Hemoglobin 8.4 g/dL (12.0-15.5) Hematocrit 28.6 % (36.0-47.0) Mean Corpuscular Volume 89 fL (79-100) Mean Corpuscular Hemoglobin 26 pg (25-35) Mean Corpuscular Hemoglobin Concent 29 g/dL (31-37) Red Cell Distribution Width 16.8 % (11.5-14.5) Platelet Count 205 x10^3/uL (140-400) Sodium Level 143 mmol/L (136-145) Potassium Level 4.0 mmol/L (3.5-5.1) Chloride Level 108 mmol/L (98-107) Carbon Dioxide Level 26 mmol/L (21-32) Anion Gap 9 (6-14) Blood Urea Nitrogen 29 mg/dL (7-20) Creatinine 3.6 mg/dL (0.6-1.0) Estimated GFR (Cockcroft-Gault) 15.4 Glucose Level 111 mg/dL (70-99) Calcium Level 8.0 mg/dL (8.5-10.1) Test 09/21/21 07:32 Glucose (Fingerstick) 122 mg/dL (70-99) Brief Hospital Course Ms Ruiz was a 66 yo female with PMHx stroke with residual left-sided hemiparesis, ex-smoker who was brought into the hospital with increasing cough, dyspnea, malaise and fatigue on 08/26/2021. She was noted to be hypoxic. She was placed on nasal cannula at 4 liters. She was COVID positive, not vaccinated for COVID. Her chest x-ray revealed diffuse bilateral infiltrates. No significant pleural effusion seen. also has similar symptoms. Denies fevers, abdominal pain, chest pain, nausea vomiting or diarrhea or dysuria or hematuria. Patient does not wear any oxygen at home. She quit smoking several years ago, but she denies any known history of pulmonary disease. She had a previous severe stroke with residual left hemiparesis, that is unchanged. She has residual speech difficulty dysarthria which is unchanged as well. She usually goes to [place] for her care. She made it clear on initial admission she did not want to be intubated or resuscitated. The patient received dexamethasone, Lovenox, Pulmonology consultation. 09/06: weakness, confusion, on bipap, cont current 09/07: still too weak, desat when trying to eat, cont the IV nutrition- we have no clinimix or PPN avail. cannot feed herself well, we should try to let her eat some, very weak, Desat when BIPAP off even briefly. discussed benefit of some PO intake with RN 09/08: Seen on BIPAP. Significant O2 desaturations when attempting to eat. Very weak. Severely ill, poor prognosis, she is aware, notes DNR status.Currently on 100% FiO2 via BiPAP and 100% FiO2 with Vapotherm. 09/09: Seen on BiPAP with supplemental 100% FiO2 40 L/min Vapotherm with saturations 87%. Not responding very well. Extremely poor prognosis shared with family. 09/10: Seen bedside on BiPAP supplemental her percent FiO2 40 recruited Vapotherm. Saturations 78%. shared poor prognosis with boyfriend/common law Wilfred Denney is not answering. Glucose stable. 09/11: Seen bedside on BiPAP with supplemental Vapotherm 100% FiO2 40 L/min O2 saturations are in the mid 50s. She is gasping, is responsive to morphine for air hunger. Contacted her boyfriend Wilfred notes patient has 2 sisters and 4 living sons 1 of which is her primary beneficiary and DPOA who is currently incarcerated. There is a plan for bailing this son out of [facility] today. Family is aware of the grim prognosis and patient's wishes not to have CPR or ventilation and are aware that her is likely imminent. 09/12: Seen bedside on BiPAP supplemental Vapotherm 40% FiO2 40 L/min with O2 saturation 70s. He has been responsive to morphine for air hunger. Unable to lift her head. Has a laceration on her ear from Vapotherm treated locally. Not responsive. Grim prognosis shared with family. A misunderstand of family meeting today to be done at her home rather than at the hospital. We will conference over the phone. Patient had made her wishes clear for several days that she did not wish for intubation or resuscitative efforts if her heart is to stop and this was communicated to me on 09/08/2021 which was the last time I was able to have a conversation with her. Has been obtunded since then 09/13: Seen bedside on BiPAP. Vapotherm FiO2 40 L/min with O2 saturations in the upper 70s. Responding well to morphine for air hunger. She was advised to sternal rub but not communicating. 09/14: Seen bedside on BiPAP with Vapotherm FiO2 40 L/min with O2 saturations in the 50s she continues to remove her BiPAP and the only word she uses is "hungr y". Boyfriend Wilfred notes he would like someone to come to their house for a family meeting. Have offered telephone discussion with the family or to come into the hospital to discuss end-of-life care options. He says that hoping she "pulls through". She is not able to communicate well anymore. Grim prognosis 09/15: Evaluated examined at bedside still on BiPAP was kind of flailing around the bed when I saw her. Unable to communicate. Poor prognosis overall. We will try to contact family again today to address goals. 09/16: Patient evaluated examined at bedside. Still on BiPAP and Vapotherm. Saturating in mid 80s when I evaluated her. Still cannot really interact with her. Poor prognosis. 09/17: Evaluated at bedside. Still on very high oxygen settings. Kind of thrashing around in bed we will try some as needed Ativan. Continues to have poor prognosis. Family apparently going to come see at bedside today we will try to discuss with them. 09/18: Evaluate examined at bedside. Still on high oxygen settings had an episode this morning where she pulled off her BiPAP and had significant desaturation. Saturating in the 70s when I saw her at bedside. at bedside discussed with him again poor prognosis. He said he is discussing with the family about how they want to proceed. 09/19: Seen and examined at bedside. Still no response to stimulation. Remains on current high oxygen settings. Had an episode this morning actually where she desaturated into the 30s. She was able to recover but took some time currently saturating in the 70s. Really becoming futile at this point but family insisted we continue current. 09/20: Seen at bedside. NO real clinical change. Grim prognosis. Will continue discussion with family 09/21: Evaluate examined at bedside. Still on BiPAP. at bedside discussed with him he still wants continued care. Continue current. Pulm following. 09/22:0906 noted with bradycardia in the 30s and hypoxia in the 40s. Given atropine bedside with her improvement. Readjusted BiPAP and Vapotherm. Attempted contact patient significant other Wilfred. Patient's not meaningfully moving her arms or legs. Despite steroid treatment she continued to have respiratory decline was placed on antibiotics in addition to COVID-19 treatment progressively more Vapotherm and additionally BiPAP. Had a prolonged hospital stay 25 days ultimately continued to decline. With bradycardia 09/22/2021 the morning with significant hypoxia in the 50s bradycardia was initially responsive to atropine after several hours bradycardia persisted was not responsive to atropine was noted with no spontaneous cardiac activity 1042 given epinephrine and bicarbonate with no effect. On repeat examination noted no spontaneous respiratory or cardiac activity for 1045 for time of . D/w boyfrienWilfred bourne, bedside. Problem list: Acute hypoxic respiratory failure secondary to COVID-19 pneumonia ARDS - due to covid 19 VIDAL due to vasomotor nephropathy Mildly elevated troponin level suggestive of type II demand ischemia Mild rhabdomyolysis Morbid obesity History of stroke with dyarthria and residual left sided weakness Greater than 30 minutes spent on day of patient expiration Discharge Information Condition at Discharge: / Disposition/Orders: Scheduled Atorvastatin Calcium (Atorvastatin Calcium) 40 Mg Tablet, 1 TAB PO DAILY for high cholesterol, #30 Ref 5 (Reported) Entered as Reported by: DAVIDSON GIMENEZ on 08/27/21910 Last Action: New Order on 08/27/21910 by DAVIDSON GIMENEZ Ergocalciferol (Vitamin D2) (Vitamin D2) 1,250 Mcg Capsule, 1,250 MCG PO WEEKLY for calcium absorbtion, (Reported) Entered as Reported by: DAVIDSON GIMENEZ on 08/27/21910 Last Action: New Order on 08/27/21910 by DAVIDSON GIMENEZ Gabapentin (Gabapentin ) 300 Mg Capsule, 300 MG PO TID for NEUROGENIC PAIN, (Reported) Entered as Reported by: DAVIDSON GIMENEZ on 08/27/21910 Last Action: Continued on 09/01/211253 by DORYS NORRIS Oxybutynin Chloride (Oxybutynin Chloride Er) 5 Mg Tab.er.24, 1 TAB PO DAILY for overactive bladder, #30 Ref 5 (Reported) Entered as Reported by: DAVIDSON GIMENEZ on 08/27/21910 Last Action: New Order on 08/27/21910 by DAVIDSON GIMENEZ Tizanidine Hcl (Tizanidine Hcl) 4 Mg Tablet, 1 TAB PO BID for muscle spasms, #60 (Reported) Entered as Reported by: DAVIDSON GIMENEZ on 08/27/21910 Last Action: New Order on 08/27/21910 by DAVIDSON GIMENEZ Triamcinolone Acetonide (Triamcinolone Acetonide) 80 Gm Oint...g., 1 [place] TP BID for skin condition, #30 Ref 1 (Reported) Entered as Reported by: DAVIDSON GIMENEZ on 08/27/21910 Last Action: New Order on 08/27/21910 by DAVIDSON GIMENEZ Scheduled PRN Naproxen Sodium (Naproxen Cr) 500 Mg Tbmp.24hr, 1 TAB PO BID PRN for PAIN for 30 Days, #60 Ref 0 (Reported) Entered as Reported by: DAVIDSON GIMENEZ on 08/27/21910 Last Action: New Order on 08/27/21910 by DAVIDSON GIMENEZ Justicifation of Admission Dx: Justifications for Admission: Justification of Admission Dx: Yes SIENA FONTENOT MD Sep 22, 2021 10:49
--- NOTE | 2021-09-22 10:55 | NUR ---
Pt went into asystole @1044, per doctors orders 1 of epinephrine and 1 of bicarb were pushed @1045 (pt chemical code)
--- NOTE | 2021-09-22 12:11 | NUR ---
Pt heart rate, blood pressure, and oxygen saturations continued to drop until the Pt no longer had a pulse and went into asystole, after giving the prescribed code drugs the pt pulse was not restored. KYLER was called by at 1045 on 09/22/21.
--- NOTE | 2021-09-22 15:13 | NUR ---
Pt transferred out [place] [facility] [place] 1500
== END 2021-09-22 10:45 | DRG 177 ==
LOC: ER 21:26 → ED HOLD 22:30 → 6 SOUTH 08-27 15:02
PROVIDERS: ADMIT Internal Medicine; ATTEND Internal Medicine
PROC: 5A0935A Assistance with Respiratory Ventilation, Less than 24 Consecutive Hours, High Flow/Velocity Cannula (ICD-10-PCS; 2021-08-28)
PROC: 5A09557 Assistance with Respiratory Ventilation, Greater than 96 Consecutive Hours, Continuous Positive Airway Pressure (ICD-10-PCS; principal; 2021-08-29)
DX: U07.1 COVID-19 (principal); N17.0 Acute kidney failure with tubular necrosis; J96.01 Acute respiratory failure with hypoxia; J12.82 Pneumonia due to coronavirus disease 2019; I69.354 Hemiplegia and hemiparesis following cerebral infarction affecting left non-dominant side; E66.01 Morbid (severe) obesity due to excess calories; E78.00 Pure hypercholesterolemia, unspecified; N32.81 Overactive bladder; Z79.899 Other long term (current) drug therapy; Z66 Do not resuscitate; Z87.891 Personal history of nicotine dependence; Z68.33 Body mass index [BMI] 33.0-33.9, adult
CPT/HCPCS: 36415; 36600; 71045; 80048; 80053; 82550; 82805; 82962; 83605; 83735; 83880; 84100; 84145; 84484; 85007; 85025; 85027; 85379; 86140; 87040; 87426; 87804; 93005; 94660; 94760; 96374; C9113; J0360; J1100; J1200; J1650; J1815; J2060; J2270; J2543; J3490; J7030; J7042; J7050; J7121; 99285-25; G0378